=== PATIENT | female | born 1955 | race Caucasian/White ===

== ENCOUNTER 2020-10-12 10:53 | Outpatient (REF) | payer MEDICARE, OTHER, SELFPAY ==
[2020-10-12 14:16] LABS: Anion Gap 10 (12-20); Blood Urea Nitrogen 15 mg/dL (9-16); Calcium 8.9 mg/dL (8.4-10.2); Carbon Dioxide 27 mmol/L (22-29); Chloride 106 mmol/L (96-108); Estimated Glomerular Filt Rate > 60; Glucose Random 129 mg/dL (60-115); Potassium 4.2 mmol/l (3.3-5.1); Sodium 139 mmol/L (135-145)
[2020-10-12 14:31] LABS: Estimated Average Glucose 128 mg/dL; Hemoglobin A1c % 6.1 %
== END 2020-10-12 10:54 | disposition home or self-care (01) ==
LOC: HO.10HDL 10:53
PROVIDERS: Visit Provider Internal Medicine
DX: R73.03 Prediabetes (principal)
CPT/HCPCS: 80048; 83036

== ENCOUNTER 2020-10-22 10:58 | Outpatient (REF) | payer MEDICARE, OTHER, SELFPAY | END 2020-10-22 10:59 | disposition home or self-care (01) | LOC: HO.LNP 10:58 | PROVIDERS: Visit Provider Internal Medicine | DX: R53.83 Other fatigue (principal); J02.9 Acute pharyngitis, unspecified; Z20.828 Contact with and (suspected) exposure to other viral communicable diseases | CPT/HCPCS: 87071; 87880; U0003 ==

== ENCOUNTER 2021-01-21 13:48 | Outpatient (REF) | payer MEDICARE, OTHER, SELFPAY ==
[2021-01-21 15:50] LABS: Estimated Average Glucose 131 mg/dL; Hemoglobin A1C 152.1316 umol/L; Hemoglobin A1c % 6.2 %
[2021-01-21 16:14] LABS: Anion Gap 13 (12-20); Blood Urea Nitrogen 16 mg/dL (9-16); C Reactive Protein 0.53 mg/dL (< or = 0.50); Calcium 9.6 mg/dL (8.4-10.2); Carbon Dioxide 26 mmol/L (22-29); Chloride 104 mmol/L (96-108); Estimated Glomerular Filt Rate > 60; Glucose Random 125 mg/dL (60-115); Sodium 139 mmol/L (135-145)
== END 2021-01-21 13:49 | disposition home or self-care (01) ==
LOC: HO.LAB 13:48
PROVIDERS: PCP Internal Medicine; Visit Provider Internal Medicine
DX: I10 Essential (primary) hypertension (principal); R73.03 Prediabetes; J02.9 Acute pharyngitis, unspecified
CPT/HCPCS: 36415; 80048; 83036; 86140; 87071; 87880

== ENCOUNTER 2021-04-08 07:51 | Outpatient (REF) | payer MEDICARE, OTHER, SELFPAY ==
--- NOTE | ~2021-04-08 | XR_ITS ---
EXAMINATION: XR KNEE, LEFT CLINICAL INFORMATION: Left knee pain. COMPARISON: None TECHNIQUE: Four views of the left knee. FINDINGS: The tricompartment joint space is maintained normal. No visible acute fracture or lytic process. Minimal superior patellar spurring and irregular articular surface of the patella is noted. No abnormal joint effusion noted. No abnormal soft tissue calcification seen. 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 No visible acute fracture or dislocation seen.
[2021-04-08 08:55] LABS: MANUAL DIFF FLAG NO
[2021-04-08 08:56] LABS: Basophils Absolute Auto 0.1 X10*3/uL (0.0-0.2); Eosinophils Absolute Auto 0.4 X10*3/uL (0.0-0.4); Eosinophils Percent Auto 4.4 % (0-4); Hematocrit 39.8 % (37-47); Hemoglobin 13.3 g/dl (12.0-16.0); Imm Gran Abs Auto 0.04 X10*3/uL (0.00-0.03); Imm Gran Pct Auto 0.5 % (0.0-0.4); Lymphocytes Absolute Auto 2.6 X10*3/uL (1.2-4.9); Lymphocytes Percent Auto 32.9 % (20-40); Mean Corpuscular HGB Conc 33.4 g/dl (31.0-35.0); Mean Corpuscular Hemoglobin 28.7 pg (27.0-33.0); Mean Platelet Volume 10.3 fL (9.4-12.3); Monocytes Absolute Auto 0.7 X10*3/uL (0.1-1.2); Monocytes Percent Auto 8.8 % (2-11); Neutrophils Absolute Auto 4.2 X10*3/uL (2.0-8.3); Neutrophils Percent Auto 52.4 % (45-73); Platelet Count 269 X10*3/uL (160-400); Red Blood Count 4.63 X10*6/uL (4.20-5.50); Red Cell Distribution Width 12.6 % (11.0-16.0); White Blood Count 7.9 X10*3/uL (4.8-10.8)
[2021-04-08 09:23] LABS: Alanine Aminotransferase 27 U/L (0-31); Albumin Level 4.1 g/dL (3.5-5.0); Alkaline Phosphatase 78 U/L (39-117); Anion Gap 13 (12-20); Aspartate Amino Transferase 18 U/L (5-31); Bilirubin Total 0.9 mg/dL (0.0-1.0); Blood Urea Nitrogen 20 mg/dL (9-16); C Reactive Protein 0.31 mg/dL (< or = 0.50); Calcium 9.5 mg/dL (8.4-10.2); Carbon Dioxide 27 mmol/L (22-29); Chloride 107 mmol/L (96-108); Cholesterol 183 mg/dL; Estimated Glomerular Filt Rate > 60; Glucose Fasting 114 mg/dL (60-99); HDL Cholesterol 36 mg/dL; LDL Cholesterol Calculated 112 mg/dl; Potassium 4.5 mmol/L (3.3-5.1); Sodium 142 mmol/L (135-145); Total Protein 7.1 g/dL (6.5-8.0); Triglycerides 178 mg/dL
== END 2021-04-08 07:52 | disposition home or self-care (01) ==
LOC: HO.LAB 07:51
PROVIDERS: PCP Internal Medicine; Visit Provider Internal Medicine
DX: M25.562 Pain in left knee (principal); I10 Essential (primary) hypertension; K21.9 Gastro-esophageal reflux disease without esophagitis; R73.03 Prediabetes; K57.90 Diverticulosis of intestine, part unspecified, without perforation or abscess without bleeding
CPT/HCPCS: 36415; 73564; 80053; 80061; 85025; 86140

== ENCOUNTER 2021-07-27 11:52 | Outpatient (REF) | payer MEDICARE, OTHER, SELFPAY ==
[2021-07-27 13:53] LABS: Estimated Average Glucose 128 mg/dL; Hemoglobin A1c % 6.1 %
[2021-07-27 14:38] LABS: Alanine Aminotransferase 15 U/L (0-31); Albumin Level 4.3 g/dL (3.5-5.0); Alkaline Phosphatase 75 U/L (39-117); Anion Gap 11 (12-20); Aspartate Amino Transferase 14 U/L (5-31); Bilirubin Total 0.5 mg/dL (0.0-1.0); Blood Urea Nitrogen 20 mg/dL (9-16); Calcium 9.8 mg/dL (8.4-10.2); Carbon Dioxide 28 mmol/L (22-29); Chloride 104 mmol/L (96-108); Estimated Glomerular Filt Rate > 60; Glucose Random 57 mg/dL (60-115); Potassium 4.3 mmol/L (3.3-5.1); Sodium 139 mmol/L (135-145); Total Protein 7.3 g/dL (6.5-8.0)
== END 2021-07-27 11:53 | disposition home or self-care (01) ==
LOC: HO.10HDL 11:52
PROVIDERS: Visit Provider Internal Medicine
DX: B02.9 Zoster without complications (principal); I10 Essential (primary) hypertension; R73.03 Prediabetes
CPT/HCPCS: 36415; 80053; 83036

== ENCOUNTER 2022-02-27 16:42 | Outpatient (REF) | payer MEDICARE, OTHER, SELFPAY ==
[2022-02-27 16:57] LABS: MANUAL DIFF FLAG NO
[2022-02-27 17:17] LABS: Basophils Absolute Auto 0.1 X10*3/uL (0.0-0.2); Basophils Percent Auto 0.9 % (0-2); Eosinophils Absolute Auto 0.3 X10*3/uL (0.0-0.4); Hematocrit 41.1 % (37.0-47.0); Hemoglobin 13.7 g/dl (12.0-16.0); Imm Gran Abs Auto 0.05 X10*3/uL (0.00-0.03); Imm Gran Pct Auto 0.6 % (0.0-0.4); Lymphocytes Absolute Auto 3.1 X10*3/uL (1.2-4.9); Lymphocytes Percent Auto 34.9 % (20-40); Mean Corpuscular HGB Conc 33.3 g/dl (31.0-35.0); Mean Corpuscular Hemoglobin 28.4 pg (27.0-33.0); Mean Corpuscular Volume 85.3 fL (80.0-98.0); Mean Platelet Volume 9.9 fL (9.4-12.3); Monocytes Absolute Auto 0.8 X10*3/uL (0.1-1.2); Neutrophils Absolute Auto 4.5 x10*3/uL (2.0-8.3); Neutrophils Percent Auto 51.6 % (45-73); Platelet Count 296 X10*3/uL (160-400); Red Blood Count 4.82 X10*6/uL (4.20-5.50); Red Cell Distribution Width 12.3 % (11.0-16.0); White Blood Count 8.8 X10*3/uL (4.8-10.8)
[2022-02-27 17:45] LABS: Anion Gap 14 (12-20); Blood Urea Nitrogen 18 mg/dL (9-16); C Reactive Protein 0.26 mg/dL (< or = 0.50); Calcium 10.1 mg/dL (8.4-10.2); Carbon Dioxide 26 mmol/L (22-29); Chloride 106 mmol/L (96-108); Estimated Glomerular Filt Rate > 60; Glucose Random 91 mg/dL (60-115); Potassium 4.7 mmol/L (3.3-5.1); Sodium 141 mmol/L (135-145)
[2022-02-27 17:47] LABS: Estimated Average Glucose 128 mg/dL; Hemoglobin A1c % 6.1 %
[2022-02-27 18:02] LABS: Erythrocyte Sedimentation Rate 5 MM/HR (0-20)
== END 2022-02-27 16:43 | disposition home or self-care (01) ==
LOC: HO.LAB 16:42
PROVIDERS: PCP Internal Medicine; Visit Provider Internal Medicine
DX: I10 Essential (primary) hypertension (principal); R73.03 Prediabetes; R51.9 Headache, unspecified
CPT/HCPCS: 36415; 80048; 83036; 85025; 85652; 86140

== ENCOUNTER 2022-06-16 10:28 | Outpatient (REF) | payer MEDICARE, OTHER, SELFPAY ==
[2022-06-16 11:56] LABS: Alanine Aminotransferase 20 U/L (0-31); Albumin Level 4.3 g/dL (3.5-5.0); Alkaline Phosphatase 70 U/L (39-117); Anion Gap 13 (12-20); Aspartate Amino Transferase 14 U/L (5-31); Bilirubin Total 0.3 mg/dL (0.0-1.0); Blood Urea Nitrogen 22 mg/dL (9-16); Calcium 9.3 mg/dL (8.4-10.2); Carbon Dioxide 26 mmol/L (22-29); Chloride 106 mmol/L (96-108); Estimated Glomerular Filt Rate > 60; Glucose Random 149 mg/dL (60-115); Potassium 4.4 mmol/L (3.3-5.1); Sodium 141 mmol/L (135-145)
== END 2022-06-16 10:29 | disposition home or self-care (01) ==
LOC: HO.LAB 10:28
PROVIDERS: PCP Internal Medicine; Visit Provider Internal Medicine
DX: I10 Essential (primary) hypertension (principal); M54.9 Dorsalgia, unspecified; K58.0 Irritable bowel syndrome with diarrhea; K21.9 Gastro-esophageal reflux disease without esophagitis; R73.03 Prediabetes
CPT/HCPCS: 36415; 80053

== ENCOUNTER 2023-01-24 09:17 | Outpatient (REF) | payer MEDICARE, OTHER, SELFPAY ==
[2023-01-24 10:52] LABS: MANUAL DIFF FLAG NO
[2023-01-24 11:08] LABS: Appearance Urine Clear; Color Urine Yellow; Glucose Urine UA Negative (Negative); Leukocyte Esterase Urine Trace (Negative); Nitrite Urine Negative (Negative); PH 5.5 (5.0-9.0); Specific Gravity - Urine 1.015 (1.005-1.025); UMIC TRIGGER UACC YES; Urine Blood Negative (Negative); Urine Ketones Negative (Negative); Urine Protein Negative (Neg-Trace)
[2023-01-24 11:12] LABS: Bacteria Urine None Seen (None Seen); Hyaline Casts Urine 0-2 /LPF (0-2); RBC Urine 0-2 /HPF (0-2); Squamous Epithelial Cell Urine 0-2 /HPF (0-2); WBC Urine 0-5 /HPF (0-5)
[2023-01-24 11:15] LABS: Basophils Absolute Auto 0.1 X10*3/uL (0.0-0.2); Basophils Percent Auto 1.2 % (0-2); Eosinophils Absolute Auto 0.3 X10*3/uL (0.0-0.4); Eosinophils Percent Auto 3.6 % (0-4); Hematocrit 43.9 % (37.0-47.0); Hemoglobin 14.5 g/dl (12.0-16.0); Imm Gran Abs Auto 0.03 X10*3/uL (0.00-0.03); Imm Gran Pct Auto 0.4 % (0.0-0.4); Lymphocytes Absolute Auto 2.2 X10*3/uL (1.2-4.9); Lymphocytes Percent Auto 32.2 % (20-40); Mean Corpuscular Hemoglobin 27.9 pg (27.0-33.0); Mean Corpuscular Volume 84.6 fL (80.0-98.0); Mean Platelet Volume 10.3 fL (9.4-12.3); Monocytes Absolute Auto 0.7 X10*3/uL (0.1-1.2); Monocytes Percent Auto 9.5 % (2-11); Neutrophils Absolute Auto 3.7 x10*3/uL (2.0-8.3); Neutrophils Percent Auto 53.1 % (45-73); Platelet Count 283 X10*3/uL (160-400); Red Blood Count 5.19 X10*6/uL (4.20-5.50); Red Cell Distribution Width 12.4 % (11.0-16.0); White Blood Count 6.9 X10*3/uL (4.8-10.8)
[2023-01-24 11:34] LABS: Alanine Aminotransferase 22 U/L (0-31); Albumin Level 4.1 g/dL (3.5-5.0); Alkaline Phosphatase 73 U/L (39-117); Anion Gap 18 (12-20); Aspartate Amino Transferase 17 U/L (5-31); Bilirubin Total 0.7 mg/dL (0.0-1.0); Blood Urea Nitrogen 17 mg/dL (9-16); Calcium 9.5 mg/dL (8.4-10.2); Carbon Dioxide 23 mmol/L (22-29); Chloride 105 mmol/L (96-108); Cholesterol 202 mg/dL; Estimated Glomerular Filt Rate > 60; Glucose Fasting 120 mg/dL (60-99); HDL Cholesterol 33 mg/dL; LDL Cholesterol Calculated 132 mg/dl; Potassium 4.6 mmol/L (3.3-5.1); Sodium 141 mmol/L (135-145); Total Protein 6.8 g/dL (6.5-8.0); Triglycerides 189 mg/dL
== END 2023-01-24 09:18 | disposition home or self-care (01) ==
LOC: HO.10HDL 09:17
PROVIDERS: Visit Provider Internal Medicine
DX: Z00.00 Encounter for general adult medical examination without abnormal findings (principal); R30.0 Dysuria
CPT/HCPCS: 36415; 80053; 80061; 81001; 81003; 85025; 87086

== ENCOUNTER 2023-06-07 17:07 | Outpatient (REF) | payer MEDICARE, OTHER, SELFPAY ==
[2023-06-07 18:04] LABS: Anion Gap 10 (12-20); Blood Urea Nitrogen 21 mg/dL (9-16); Calcium 10.1 mg/dL (8.4-10.2); Carbon Dioxide 28 mmol/L (22-29); Chloride 107 mmol/L (96-108); Estimated Glomerular Filt Rate > 60; Glucose Random 131 mg/dL (60-115); Potassium 4.1 mmol/L (3.3-5.1); Sodium 141 mmol/L (135-145)
[2023-06-08 08:43] LABS: HIV AB/AG Nonreactive (Nonreactive); HIV Num 1 0.06 S/CO (0.00-0.99)
== END 2023-06-07 17:08 | disposition home or self-care (01) ==
LOC: HO.LAB 17:07
PROVIDERS: PCP Internal Medicine; Visit Provider Internal Medicine
DX: Z11.4 Encounter for screening for human immunodeficiency virus [HIV] (principal); I10 Essential (primary) hypertension; R30.0 Dysuria; R73.01 Impaired fasting glucose; G62.9 Polyneuropathy, unspecified
CPT/HCPCS: 36415; 80048; 87389

== ENCOUNTER 2023-06-14 10:53 | Outpatient (REF) | payer MEDICARE, OTHER, SELFPAY ==
[2023-06-14 13:59] LABS: Glucose Random 162 mg/dL (60-115)
[2023-06-14 14:02] LABS: Estimated Average Glucose 128 mg/dL; Hemoglobin A1c % 6.1 %
== END 2023-06-14 10:54 | disposition home or self-care (01) ==
LOC: HO.10HDL 10:53
PROVIDERS: Visit Provider Internal Medicine
DX: R73.03 Prediabetes (principal)
CPT/HCPCS: 36415; 82947; 83036

== ENCOUNTER 2024-02-13 08:27 | Outpatient (REF) | payer MEDICARE, OTHER, SELFPAY ==
--- NOTE | ~2024-02-13 | XR_ITS ---
EXAMINATION: XR SHOULDER, RIGHT CLINICAL INFORMATION: Right shoulder pain COMPARISON: None available. TECHNIQUE: AP external rotation, Grashey, scapular Y, and axillary views of the right shoulder. FINDINGS: The bones are intact. No fracture. Glenohumeral and acromioclavicular alignment is anatomic with normal glenohumeral joint space. There is mild degenerative change of acromioclavicular joint. Slight cortical irregularity of the humeral head is likely related to rotator cuff disease. No abnormal soft tissue calcifications. XR/XR shoulder RT min 2V IMPRESSION: 1. No acute bony abnormality. 2. Mild degenerative change of the acromioclavicular joint.
[2024-02-13 08:49] LABS: MANUAL DIFF FLAG NO
[2024-02-13 09:02] LABS: Basophils Absolute Auto 0.1 X10*3/uL (0.0-0.2); Basophils Percent Auto 1.1 % (0-2); Eosinophils Absolute Auto 0.3 X10*3/uL (0.0-0.4); Eosinophils Percent Auto 3.9 % (0-4); Hematocrit 41.6 % (37.0-47.0); Hemoglobin 13.8 g/dl (12.0-16.0); Imm Gran Abs Auto 0.02 X10*3/uL (0.00-0.03); Imm Gran Pct Auto 0.3 % (0.0-0.4); Lymphocytes Absolute Auto 2.2 X10*3/uL (1.2-4.9); Lymphocytes Percent Auto 35.1 % (20-40); Mean Corpuscular HGB Conc 33.2 g/dl (31.0-35.0); Mean Corpuscular Hemoglobin 27.4 pg (27.0-33.0); Mean Corpuscular Volume 82.5 fL (80.0-98.0); Mean Platelet Volume 9.7 fL (9.4-12.3); Monocytes Absolute Auto 0.5 X10*3/uL (0.1-1.2); Monocytes Percent Auto 8.3 % (2-11); Neutrophils Absolute Auto 3.3 x10*3/uL (2.0-8.3); Neutrophils Percent Auto 51.3 % (45-73); Platelet Count 268 X10*3/uL (160-400); Red Blood Count 5.04 X10*6/uL (4.20-5.50); Red Cell Distribution Width 12.5 % (11.0-16.0); White Blood Count 6.4 X10*3/uL (4.8-10.8)
[2024-02-13 09:19] LABS: Estimated Average Glucose 123 mg/dL; Hemoglobin A1c % 5.9 % (<6.0)
[2024-02-13 09:36] LABS: Alanine Aminotransferase 18 U/L (0-31); Albumin Level 4.1 g/dL (3.5-5.0); Alkaline Phosphatase 76 U/L (39-117); Anion Gap 11 (12-20); Aspartate Amino Transferase 13 U/L (5-31); Bilirubin Total 0.6 mg/dL (0.0-1.0); Blood Urea Nitrogen 23 mg/dL (9-16); Calcium 9.5 mg/dL (8.4-10.2); Carbon Dioxide 28 mmol/L (22-29); Chloride 105 mmol/L (96-108); Cholesterol 198 mg/dL (<200); Estimated Glomerular Filt Rate > 60; Glucose Fasting 126 mg/dL (60-99); HDL Cholesterol 38 mg/dL (>40); LDL Cholesterol Calculated 130 mg/dL (<100); Potassium 4.3 mmol/L (3.3-5.1); Sodium 140 mmol/L (135-145); Total Protein 7.3 g/dL (6.5-8.0); Triglycerides 153 mg/dL (<150)
[2024-02-13 10:22] LABS: Appearance Urine Clear; Color Urine Yellow; Glucose Urine UA Negative (Negative); Leukocyte Esterase Urine Negative (Negative); Nitrite Urine Negative (Negative); Specific Gravity - Urine 1.025 (1.005-1.025); Urine Blood Negative (Negative); Urine Ketones Negative (Negative); Urine Protein Negative (Neg-Trace)
[2024-02-13 11:05] LABS: Creatinine Urine 122.07 mg/dL; Microalbum/Creatinine Ratio Ur 4.9 ug/mg cr (<30)
== END 2024-02-13 08:28 | disposition home or self-care (01) ==
LOC: HO.LAB 08:27
PROVIDERS: PCP Internal Medicine; Visit Provider Internal Medicine
DX: M25.511 Pain in right shoulder (principal); R73.03 Prediabetes; I10 Essential (primary) hypertension; E78.00 Pure hypercholesterolemia, unspecified
CPT/HCPCS: 36415; 73030; 80053; 80061; 81003; 82043; 82570; 83036; 85025; 87086

== ENCOUNTER 2024-12-04 14:18 | Outpatient (REF) | payer MEDICARE, OTHER, SELFPAY ==
[2024-12-04 14:46] LABS: MANUAL DIFF FLAG NO
[2024-12-04 15:09] LABS: Basophils Absolute Auto 0.1 X10*3/uL (0.0-0.2); Basophils Percent Auto 0.9 % (0-2); Eosinophils Absolute Auto 0.2 X10*3/uL (0.0-0.4); Eosinophils Percent Auto 2.7 % (0-4); Hemoglobin 14.3 g/dl (12.0-16.0); Imm Gran Abs Auto 0.05 X10*3/uL (0.00-0.03); Imm Gran Pct Auto 0.6 % (0.0-0.4); Lymphocytes Absolute Auto 2.8 X10*3/uL (1.2-4.9); Lymphocytes Percent Auto 31.5 % (20-40); Mean Corpuscular Hemoglobin 28.4 pg (27.0-33.0); Mean Corpuscular Volume 83.3 fL (80.0-98.0); Mean Platelet Volume 9.8 fL (9.4-12.3); Monocytes Absolute Auto 0.8 X10*3/uL (0.1-1.2); Monocytes Percent Auto 9.5 % (2-11); Neutrophils Absolute Auto 4.8 x10*3/uL (2.0-8.3); Neutrophils Percent Auto 54.8 % (45-73); Platelet Count 268 X10*3/uL (160-400); Red Blood Count 5.04 X10*6/uL (4.20-5.50); Red Cell Distribution Width 12.6 % (11.0-16.0); White Blood Count 8.8 X10*3/uL (4.8-10.8)
[2024-12-04 16:00] LABS: Appearance Urine Clear; Color Urine Yellow; Glucose Urine UA Negative (Negative); Leukocyte Esterase Urine Trace (Negative); Nitrite Urine Negative (Negative); PH 5.5 (5.0-9.0); UMIC TRIGGER UACC YES; Urine Blood Negative (Negative); Urine Ketones Negative (Negative); Urine Protein Negative (Neg-Trace)
[2024-12-04 16:06] LABS: Alanine Aminotransferase 25 U/L (0-31); Albumin Level 4.3 g/dL (3.5-5.0); Alkaline Phosphatase 80 U/L (39-117); Anion Gap 8 (12-20); Aspartate Amino Transferase 20 U/L (5-31); Bilirubin Total 0.4 mg/dL (0.0-1.0); Blood Urea Nitrogen 20 mg/dL (9-16); C Reactive Protein 0.22 mg/dL (< or = 0.50); Calcium 9.8 mg/dL (8.4-10.2); Carbon Dioxide 29 mmol/L (22-29); Chloride 108 mmol/L (96-108); Estimated Glomerular Filt Rate > 60; Glucose Random 101 mg/dL (60-115); Potassium 4.1 mmol/L (3.3-5.1); Sodium 141 mmol/L (135-145); Total Protein 7.8 g/dL (6.5-8.0)
[2024-12-04 18:05] LABS: Bacteria Urine None Seen (None Seen); Hyaline Casts Urine 0-2 /LPF (0-2); RBC Urine 0-2 /HPF (0-2); Squamous Epithelial Cell Urine 0-2 /HPF (0-2); WBC Urine 0-5 /HPF (0-5)
--- OUTSIDE RECORDS SUMMARY | 2024-12-04 18:59 | XMS_ITS | Continuity of Care Document ---
Author Organization [facility] Address [address] [place] [address] [address] [place] [address]- Care Team Providers Care [employer] Name Role Phone Best Suh MD Primary Care Physician Encounter [facility] [id number] Date(s): 10/24/24 - 11/23/[address] [place], [place] [address] Encounter Type: Triage Allergies, Adverse Reactions, Alerts Substance Criticality Severity Reaction Reaction Severity Status Cipro rash Active Medications Advil 200 mg oral tablet 2 tablet = 400 mg, By Mouth, Every 4 hours, PRN for fever, # 120 tablet, 0 Refills, Maintenance, 02/26/23 2:05:00 PM EDT, Tablet, Partial fill upon patient request if the prescription is for a schedule II opioid drug. Start Date: 02/26/23 Status: Ordered Quantity: 120.0 Unit: tablet Repeat number: 1 Rachelle By Mouth, 0 Refills, Maintenance, 02/26/23 2:04:00 PM EDT, Partial fill upon patient request if the prescription is for a schedule II opioid drug. Start Date: 02/26/23 Status: Ordered Repeat number: 1 bupropion 150 mg oral tablet, extended release 1 tablet = 150 mg, By Mouth, Daily, # 180 tablet, 0 Refills, Maintenance, 07/06/13 5:34:09 PM EDT, ER Tablet Start Date: 07/06/13 Status: Ordered Quantity: 180.0 Unit: tablet Repeat number: 1 clonazepam 0.5 mg oral tablet TAKE 1 TABLET BY MOUTH AT BEDTIME NEEDED Start Date: 07/06/13 Status: Ordered Repeat number: 1 gabapentin 100 mg oral capsule 100 mg, 1, capsule, By Mouth, Daily at bedtime, # 30 capsule, Refills 0, Tot. Refills 0, Maintenance, 10/01/23 2:48:00 PM EST, Route to Pharmacy Electronically, [facility]/pharmacy #[id number], Partial fill upon patient request if the prescription is for a schedule II opioid drug., 161, cm, 02/26/23 14:00:00 EDT, Height, 79, kg, 10/01/23 14:43:00 EST, Dry Weight Start Date: 10/01/23 Status: Ordered Quantity: 30.0 Unit: capsule Repeat number: 1 gabapentin 100 mg oral capsule See Instructions, Take 2 caps every night before bed, # 60 capsule, Refills 3, Tot. Refills 3, Maintenance, 10/15/23 4:07:00 PM EST, Instructions Replace Required Details, Route to Pharmacy Electronically, [facility]/pharmacy #[id number], Partial fill upon patient request if the prescription is for a schedule II opioid drug., 161, cm, 02/26/23 14:00:00 EDT, Height, 78.1, kg, 10/15/23 15:16:00 EST, Dry Weight Start Date: 10/15/23 Status: Ordered Quantity: 60.0 Unit: capsule Repeat number: 4 losartan 50 mg oral tablet 1 tablet = 50 mg, By Mouth, Daily, # 30 tablet, 0 Refills, Maintenance, 07/06/13 5:34:26 PM EDT, Tablet Start Date: 07/06/13 Status: Ordered Quantity: 30.0 Unit: tablet Repeat number: 1 omeprazole 20 mg oral enteric coated capsule 1 capsule = 20 mg, By Mouth, 2 times a day, # 30 capsule, 0 Refills, Maintenance, 07/06/13 5:33:02 PM EDT, EC Capsule Start Date: 07/06/13 Stop Date: 08/05/13 Status: Ordered Quantity: 30.0 Unit: capsule Repeat number: 1 phenazopyridine 200 mg oral tablet 200 mg, 1, tablet, By Mouth, 3 times a day after meals, PRN, with food, # 30 tablet, Refills 3, Tot. Refills 3, Maintenance, as needed for urinary discomfort, 01/14/24 2:24:00 PM EST, Route to Pharmacy Electronically, [facility]/pharmacy #[id number], Partial fill upon patient request if the prescription is for aschedule II opioid drug., 161, cm, 02/26/23 14:00:00 EDT, Height, 78.47, kg, 11/26/23 13:55:00 EST,Dry Weight Start Date: 01/14/24 Status: Ordered Quantity: 30.0 Unit: tablet Repeat number: 4 Readi-Cat 2 oral suspension See Instructions, Take one bottle 6 hours before procedure. Take second bottle 90 minutes before procedure., # 2 each, 0 Refills, Maintenance, 12/06/22 3:58:00 PM EST, [facility]/pharmacy #[id number], Partial fillupon patient request if the prescription is for a schedule II opioid drug., Take one bottle 6 hoursbefore procedure. Take second bottle 90 minutes before procedure., 161, cm, 04/18/22 10:53:00 EDT, H eight Start Date: 12/06/22 Status: Ordered Quantity: 2.0 Unit: each Repeat number: 1 sodium bicarbonate 650 mg oral tablet 1 tablet = 650 mg, By Mouth, 4 times a day, 0 Refills, Maintenance, 10/15/23 3:19:00 PM EST, Partial fill upon patient request if the prescription is for a schedule II opioid drug. Start Date: 10/15/23 Status: Ordered Repeat number: 1 Vitafusion Fiber Well + Probiotics Gummies oral tablet, chewable 1 tablet, By Mouth, Daily, # 30 tablet, 0 Refills, Maintenance, 09/02/24 5:49:00 PM EDT, [facility]/pharmacy #[id number], Partial fill upon patient request if the prescription is for a schedule II opioid drug., 1tablet By Mouth Daily, 160, cm, 09/02/24 16:55:00 EDT, Height, 75, kg, 09/02/24 16:55:00 EDT, Dry Weight Start Date: 09/02/24 Status: Ordered Quantity: 30.0 Unit: tablet Repeat number: 1 Vitamin D3 1000 intl units oral capsule 1 capsule = 25 mcg, By Mouth, Daily, # 100 capsule, 0 Refills, Maintenance, 02/26/23 2:04:00 PM EDT,Capsule, Partial fill upon patient request if the prescription is for a schedule II opioid drug. Start Date: 02/26/23 Status: Ordered Quantity: 100.0 Unit: capsule Repeat number: 1 Problem List Condition Confirmation Course Effective Dates Status H ealth Status Informant Arthritis Confirmed Active Back pain Confirmed Active Diverticulitis Confirmed Active Heartburn Confirmed Active High blood pressure Confirmed Active Osteoporosis Confirmed Active Patient Care team information Care Team Personnel Name: Best Suh MD Position: S Outreach Member Role: PCP Address: [address] [place] [address] Angeli INIGUEZ [place] [address] Telecom: Care Team Related Persons Name: LILLIE SILVA Name: LOUISE SILVA Name: JOANIE RAMIREZ Name: JOANIE RAMIREZ Insurance Providers Guarantor name: DOUGLAS SILVA Health Plan Information #: 1 Payer: MEDICARE PART B OUTPT Member Number: NA Policy Number: NA Group Number: NA Health Plan Information #: 2 Payer: [facility] Member Number: NA Policy Number: NA Group Number: NA
== END 2024-12-04 14:19 | disposition home or self-care (01) ==
LOC: HO.LAB 14:18
PROVIDERS: PCP Internal Medicine; Visit Provider Internal Medicine
DX: R10.9 Unspecified abdominal pain (principal)
CPT/HCPCS: 36415; 80053; 81001; 81003; 85025; 86140; 87086

== ENCOUNTER 2024-12-08 12:27 | Outpatient (REF) | payer MEDICARE, OTHER, SELFPAY ==
--- NOTE | ~2024-12-08 | CT_ITS ---
EXAMINATION: CT ABDOMEN AND PELVIS WITHOUT CONTRAST CLINICAL INFORMATION: Right lower quadrant pain COMPARISON: CT abdomen and pelvis 01/04/2017 TECHNIQUE: Multidetector volumetric imaging was performed from the superior aspect of the liver through the pubic symphysis. Sagittal and coronal reformatted images were obtained on the technologist's workstation. This CT examination was performed using dose optimization techniques as appropriate, variously including the following: *Automated exposure control *Adjustment of mA and/or kV according to patient size (this includes techniques or standardized protocols for targeted exams where dose is matched to indication/reason for exam; i.e. extremities or head) *Use of iterative reconstruction technique. DLP: 4 70 mGy. FINDINGS: LUNG BASES: The visualized lung bases are unremarkable. LIVER, GALLBLADDER, AND BILIARY TREE: The liver is normal in size, shape, and highly attenuated. No focal hepatic lesion or biliary ductal dilatation is present. The gallbladder is surgically removed . PANCREAS: Unremarkable. SPLEEN: Unremarkable. ADRENAL GLANDS: Unremarkable. KIDNEYS AND URETERS: The kidneys are normal in size, shape, and attenuation. No hydronephrosis, hydroureter, or calculi seen. No perinephric stranding. BLADDER: Unremarkable. GASTROINTESTINAL TRACT: There is scattered stool, diverticuli and gas seen throughout the colon without distention. Significant stool is seen in the cecum and ascending colon likely cause of patient's pain. Oral contrast opacified small bowel loops are normal caliber. Appendix is normal caliber. ABDOMINAL WALL: No significant hernia is appreciated. LYMPH NODES: There are small non no suspicious several retroperitoneal and mesenteric lymph nodes, stable to previous study. The largest mesenteric lymph node measures 9 mm on axial image 46/3. Same lymph node measured 1.3 cm on the previous exam.. VASCULAR: Dominant aorta is of normal caliber. PELVIC VISCERA: Uterus is midline and slightly deviated to left. No adnexal mass or free fluid seen. OSSEOUS STRUCTURES: Mild degenerative disc changes seen throughout the entire lumbar spine with vacuum disc phenomena, ventral and posterior spondylosis. No aggressive lytic or sclerotic process seen CT/CT abdomen pelvis wo IV con IMPRESSION: Moderate constipation with large amount of stool in the right colon and cecum. The cecum is low-lying in the pelvis. The appendix is normal. The small bowel loops are normal. Cholecystectomy. Mild attenuation of liver question hepatic steatosis. No radiopaque urolith or hydroureteronephrosis. Fleischner guidelines were followed. Electronically signed by: Harley Barry MD 12/08/2024 03:26 PM TATIANA RP
[2024-12-08] MEDS: Barium Sulfate Oral (Mocha) 450 ML ORAL.SUSP 900 ML PO (14:22)
== END 2024-12-08 12:28 | disposition home or self-care (01) ==
LOC: HO.CT 12:27
PROVIDERS: PCP Internal Medicine; Visit Provider Internal Medicine
DX: R10.31 Right lower quadrant pain (principal)
CPT/HCPCS: 74176

== ENCOUNTER → 2024-12-08 14:17 | Outpatient (BNV) | payer MEDICARE, OTHER, SELFPAY | PROVIDERS: PCP Internal Medicine; Visit Provider Radiology Diagnostic Radiology | DX: K56.41 Fecal impaction (principal) | CPT/HCPCS: 74176 ==

== ENCOUNTER 2025-02-04 14:04 | Outpatient (AMB) | payer MEDICARE, OTHER, SELFPAY ==
--- NOTE | 2025-02-04 14:09 | A.OFFPC_ITS ---
Vital Signs 02/04/25 14:14 Height 5 ft 3 in Weight 168 lb BMI 29.8 BP 126/70 Respiration 16 Pulse 88 Pulse Source Pulse Oximeter Temp 97.6 F Temp Source Temporal Artery Scan Pulse Oximetry (%) 99 Oxygen Delivery Method Room Air Intake Visit Reasons: Routine Family Preservation Worker Required: No Accompanied by: Self / Same As Patient Allergies ciprofloxacin [CIPROFLOXACIN] Allergy (Intermediate, Unverified 02/04/25 14:12) RASH Tobacco use date assessed: 02/04/25 Fall risk assessment: No Falls in past year Last assessed Fall Risk: 02/04/25 Dental Screening Dental Screen Date: 02/04/25 Did you have a dental visit in the last 12 months?: Yes Did you have a dental problem in the last 6 months where you did not have access to dental care?: No PFSH Medical History (Updated 02/04/25 @ 15:15 by John Palmer MD) Neuropathy Family History (Updated 02/04/25 @ 14:19 by JESICA Elena) Mother Dementia Afib Arthritis Father Gastric cancer Social History (Updated 02/04/25 @ 14:19 by JESICA Elena) Housing: House Alcohol intake: current Alcohol intake frequency: does not drink Patient Tobacco Use Status: Never used Tobacco service: No Current occupational status: retired Cognitive needs: No Hearing needs: No Vision needs: Yes (rx glasses) Questionnaire PHQ-9 Over the last 2 weeks, how often have you been bothered by any of the following problems? 1. Little interest or pleasure in doing things: not at all 2. Feeling down, depressed, or hopeless: not at all 3. Trouble falling or staying asleep, or sleeping too much: not at all 4. Feeling tired or having little energy: not at all 5. Poor appetite or overeating: not at all 6. Feeling bad about yourself - or that you are a failure or have let yourself or your family down: not at all 7. Trouble concentrating on things, such as reading the newspaper or watching television: not at all 8. Moving or speaking so slowly that other people could have noticed. Or the opposite - being so fidgety or restless that you have been moving around a lot more than usual: not at all 9. Thoughts that you would be better off or of hurting yourself in some way: not at all Total score: 0 Source: Developed by Drs. Alvarado Pratt, Maria Esther Saucedo, Patricio Cherry and colleagues, with an educational silvia from [employer]. Thrive Questionnaire Date Thrive assessed: 02/04/25 I am a: Patient What is your living situation today?: I have a steady place to live Within the past 12 months, did the food you bought not last and you didn't have the money to get more?: Never true Within the past 12 months, did you worry whether your food would run out before you got money to buy more?: Never true Do you have trouble paying for medicines?: No Do you have trouble getting transportation to medical appointments?: No Do you have trouble paying your heating and electricity bill?: No Do you have trouble taking care of your child, family member or friend?: No Do you have trouble with day-to-day activities such as bathing, preparing meals, shopping, managing finances, etc.?: No Are you currently unemployed and looking for a job?: No Are you interested in more education?: No Please select the resources that you would like help with: None THRIVE Score: 0 AUDIT C Alcohol Use Questionnaire (AUDIT-C) 1. How often do you have a drink containing alcohol?: Never 3. How often do you have six or more drinks on one occasion?: Never Total Score: 0 JEFFERY-7 AMB Questionnaire JEFFERY-7 Date JEFFERY - 7 assessed: 02/04/25 Feeling nervous, anxious, or on edge: 0 = Not at all Not being able to stop or control worryin = Not at all Worrying too much about different things: 0 = Not at all Trouble relaxin = Not at all Being so restless that it is hard to sit still: 0 = Not at all Becoming easily annoyed or irritable: 0 = Not at all Feeling afraid as if something awful might happen: 0 = Not at all Total JEFFERY-7 score (0-4 normal; 5-9 mild; 10-14 moderate; 15-21 severe): 0 Source: Developed by Maria Esther Brito Kurt Kroenke and colleagues, with an educational silvia from [employer]. Physical exam (Primary Care) Vital Signs: Last Vital Signs Temp 97.6 F 02/04/25 14:14 Pulse 88 02/04/25 14:14 Resp 16 02/04/25 14:14 BP 126/70 02/04/25 14:14 Pulse Ox 99 02/04/25 14:14 Oxygen Delivery Method Room Air 02/04/25 14:14 BMI result Body Mass Index 29.8 Tobacco/Smoking Status: Tobacco use Status Tobacco use date assessed 02/04/25 02/04/25 14:20 Patient Tobacco Use Status Never used Tobacco 02/04/25 14:20 PHQ-9: PHQ-9 Score PHQ-9: Total score 0 02/04/25 14:20 Thrive Assessment: Date of Thrive Assessment Date Thrive assessed 02/04/25 02/04/25 14:20 Coding Level of Care Code New Pt Level 4 (26838) Complex EM visit Add On G2211 Diagnoses Neuropathy G62.9 Assessment & Plan Assessment & Plan (1) Neuropathy: Code(s): G62.9 - Polyneuropathy, unspecified Category: Medical Plan: Gabapentin called in. Omeprazole prescription called in Plan History of Present Illness The patient is a 70-year-old female presenting with recent concerns of abdominal discomfort and neuropathy symptoms in her feet. She recently had a blood test and CAT scan, which showed normal blood results but indicated stool in the colon and cecum. The patient reports persistent right upper quadrant pain, which has failed to resolve fully, despite trying MiraLAX to regularize bowel activity. She also reports a historical burden of polyp formation within the colon, having undergone multiple colonoscopies, and has known diverticulosis, and diverticulitis. The patient experiences neuropathic symptoms, including burning and numbness in her feet, along with stiffness and pain in her toes and fingers, symptoms that disturb her sleep. She manages chronic GERD with omeprazole but still experiences significant symptoms exacerbated by certain foods. Her urinary symptoms have been somewhat managed with estradiol, although burning persists. The patient expresses concern about her prediabetes, questioning its connection to her neuropathy, and manages constipation with MiraLAX. Social History - The patient is a retired teacher, having previously worked in elementary education. - She currently takes care of her 90-year-old mother. - Nutrition: The patient reports difficulties reducing sugar intake due to a sweet tooth. - Known to avoid raw vegetables, nuts, and popcorn due to gastrointestinal discomfort. - She manages constipation with MiraLAX every other day, noted to result in irregular bowel habits. - She adheres to dietary modifications to avoid worsening GERD, including reducing caffeine and acidic foods. Review of Systems - Gastrointestinal: Reports abdominal discomfort, belching, bowel irregularities, and acid reflux. - Neurological: Reports burning, numbness, and shooting pain in feet, with similar symptoms in fingers. - Genitourinary: Reports burning with urination. - Musculoskeletal: Reports morning stiffness and arthralgia. Physical Exam General: Appearance normal, both eyes and all related structures Nutritional Appearance: Well nourished Orientation/consciousness: Patient oriented x3 Limitations: No limitations Head: Normal to inspection Neck: Normal visual inspection Chest: Normal palpation of entire chest wall Respiratory: Normal respiratory effort Neurology: Burning numbness and pain in toes and bottom of feet, possible neuropathy Results - Labs: Blood glucose level of 101 mg/dL, noted as normal. - Tests and Diagnostics: CAT scan showed stool presence in the colon and cecum. Plan The plan includes treatment with Neurontin for neuropathy symptoms, and the use of a higher dose of omeprazole to address GERD-related symptoms potentially exacerbated by dietary factors. An A1c test will clarify her prediabetic state, aimed at understanding its correlation to her neuropathy. Blood work for arthritis assessment will be conducted to explore underlying systemic contributions to her joint pain and morning stiffness. She will manage bowel health with MiraLAX, adjusting use based on regularity of bowel movements. As dietary factors impact multiple symptoms, including acid reflux, she is advised to remain careful with food choices that may exacerbate her symptoms. Regular follow-up with her tubing machine operator and care for her pre-existing conditions are encouraged to optimize her chronic symptom management and ensure comprehensive monitoring. Patient was informed and verbally consented to the use of an ambient scribe for clinic note documentation during this visit. Discussion Notes During the visit, I discussed with the patient the management of neuropathy symptoms using Neurontin. I advised her to take a low dose at bedtime due to potential drowsiness. The risks and benefits of this medication were discussed, with an understanding that natural or [id number] alternatives for neuropathic pain are limited. For her GERD, increasing omeprazole to 40 mg was recommended to better manage symptoms, with consideration for dietary triggers as discussed. Blood sugar management was reviewed, including an A1c test to determine her prediabetic status and its relevance to her symptoms, emphasizing no evidence of diabetes. Further testing for arthritis was planned, to ascertain if inflammatory causes are contributing to her joint symptoms. The option of adjusting MiraLAX was also explored based on current bowel habits. Future follow-up with her tubing machine operator for a comprehensive approach to her digestive health, and potential advancement to surgical interventions for hemorrhoids if practical, was advised. I outlined home management for her chronic conditions while highlighting the importance of dietary monitoring, given her sensitivities. Patient Instructions - Take Neurontin as prescribed for neuropathy symptoms before bedtime. - Increase omeprazole to 40 mg daily to manage GERD; take in the morning an hour before eating. - Follow up on lab work, including the A1c and arthritis-related assessments. - Adjust MiraLAX use depending on bowel movement regularity. - Maintain dietary adjustments to lessen GERD and urinary symptoms; continue to avoid foods that exacerbate symptoms. - Monitor any changes in symptoms; contact the office with any worsening or new issues. - Schedule a follow-up appointment for further evaluation in six weeks or as needed. - Prioritize a consultation with a gastroenterology specialist if symptoms persist or progress. Orders: Orders Hemoglobin A1c Today G62.9 - Polyneuropathy, unspecified Erythrocyte Sedimentation Rate Today G62.9 - Polyneuropathy, unspecified Medications: New gabapentin (Neurontin) 100 mg PO BEDTIME 30 caps 1RF losartan 50 mg PO BID 180 tabs 1RF omeprazole 40 mg (2 x 20 mg) PO DAILY 90 caps 1RF
[2025-02-04 14:14] VITALS: BP 126/70; PULSE 88; RESP 16; TEMP 36.4; O2SAT 99; BMI 29.8
--- OUTSIDE RECORDS SUMMARY | 2025-02-04 16:26 | XMS_ITS | Continuity of Care Document ---
Author Organization [facility] Address [address] [place] [address] ve [address] [place] [address]- Care Team Providers Care Shoe Shanker Name Role Phone Best Suh MD Primary Care Physician Encounter [facility] [id number] Date(s): 12/09/24 - 01/08/[address] [place], [place] [address] Attending Physician: Nori Dow Admitting Physician: trNori Referring Physician: Admtr ArVerna Encounter Type: Triage Allergies, Adverse Reactions, Alerts [...] 2:48:00 PM EST, Route to Pharmacy Electronically, [facility]/pharmacy #[id number], Partial fill upon patient [...] Replace Required Details, Route to Pharmacy Electronically, [facility]/pharmacy #[id number], Partial fill upon patient [...] 2:24:00 PM EST, Route to Pharmacy Electronically, [facility]/pharmacy #[id number], Partial fill upon patient request if the prescription is for aschedule II opioid drug., 161, cm, 02/26/23 14:00:00 EDT, Height, 78.47, kg, 11/26/23 13:55:00 EST,Dry Weight Start Date: 01/14/24 Status: Ordered Quantity: 30.0 Unit: tablet Repeat number: 4 sodium bicarbonate 650 mg oral tablet 1 [...] 0 Refills, Maintenance, 09/02/24 5:49:00 PM EDT, [facility]/pharmacy #[id number], Partial fill upon patient [...] Confirmed Active High blood pressure Confirmed Active Obese class I Confirmed Active Osteoporosis Confirmed Active Patient Care team information Care Team Personnel Name: Best Suh MD Position: S Outreach Member Role: PCP Address: [address] [place] [address] [place], [place] [address]- Telecom: Care Team Related Persons Name: LILLIE SILVA Name: LOUISE SILVA Name: JOANIE RAMIREZ Name: JOANIE RAMIREZ Insurance Providers Guarantor name: DOUGLAS SILVA Health Plan Information #: 1 Payer: MEDICARE PART B OUTPT Member Number: NA Policy Number: NA Group Number: NA Health Plan Information #: 2 Payer: [facility] Member Number: NA Policy Number: NA Group Number: NA
--- OUTSIDE RECORDS SUMMARY | 2025-02-04 16:26 | XMS_ITS | Encounter Summary ---
Author Organization [facility] Address [address] [place] [address] Care Team Providers Care Cinnamon Grinder Name Role Phone Best Suh MD Primary Care Provider Encounter Details Date Type Department Care Team (Late st Contact Info) Description 01/15/2025 Lab Requisition [facility] - Main Lab [address] [place] [address] [facility] Lee Ann Fine & Sukumar Ob-Air Conditioning Service Technician Acute vaginitis Social History Tobacco Use Types Packs/Day Years Used Date Smoking Tobacco: Never Assessed Comments Unknown Sex and Gender Information Value Date Recorded Sex Assigned at Not on file Legal Sex Female 10:07 PM EST Gender Identity Not on file Sexual Orientation Not on file documented as of this encounter Plan of Treatment Not on file documented as of this encounter Procedures Procedure Name Priority Date/Time Associated Diagnosis Comments VAGINITIS PATHOGENS BY PCR Routine 01/15/2025 12:00 AM EST Acute vaginitis documented in this encounter Results * Vaginitis pathogens molecular study (01/15/2025 12:00 AM EST) Trichomonas vaginalis Negative Negative 2025 12:12 PM [facility] Gardnerella vaginalis Negative Negative 2025 12:12 PM [facility] Angela Species Negative Negative 12:12 PM [facility] Swab Vaginal structure / Unknown 01/15/2025 01/15/2025 7:31 PM EST us Lee Ann Guzman & Sukumar O b-Air Conditioning Service Technician [facility] Fine LAB MICROBIOLOGY - GENERAL ORDERABLES Final Result [facility] [address] [place] [address], documented in this encounter Visit Diagnoses Diagnosis Acute vaginitis Unspecified vaginitis and vulvovaginitis documented in this encounter Care Teams Cinnamon Grinder Relationship Specialty Start Date End Date Best Suh MD [address] [place] [address] Dr Ismael [place] PCP - General 10/31/12 documented as of this encounter
--- OUTSIDE RECORDS SUMMARY | 2025-02-04 16:26 | XMS_ITS | Patient Health Record ---
Author Organization [facility] Address [address] [facility] [address] Care Team Providers Care Union Laborer Name Role Phone Best Suh MD Primary Care Provider Unavaila Luiz Diaz Unavailable [phone] Allergies Allergen (clinical drug ingredient) Drug/Non Drug Allergy documented on EMR Reaction Allergy Type Onset Date Status amoxicillin Amoxicillin diarrhea Drug Allergy Act ericka ciprofloxacin Cipro hives Drug Allergy Act ericka erythromycin Erythromycin diarrhea Drug Allergy A ctive Reason For Referral No Information Medications Medication SIG (Take, Route, Frequency, Duration) Notes Start Date End Date Status Omeprazole 20 MG Oral for 90 A ctive Losartan Potassium 50 MG Oral for 90 Active Ciclopirox 0.77 % 1 application Regulatory Specialist ally to affected toenails Twice a day for 30 days 02/21/2023 Active Vitamin D Active Immunizations Vaccine Route Administration Date Status Comme nts COVID-19 Pfizer BioNTech Vaccine Unknown 10/19/2021 Administered unsure dates Social History Tobacco Use: Social History Observation Description Date Details (start date - stop date) Never Smoker NA - NA Tobacco Use/Smoking Question Answer Notes Are you a: nonsmoker Additional Findings: Tobacco Non-User Current no n-smoker Alcohol Screen Question Answer Notes Did you have a drink containing alcohol in the p ast year? No Points 0 Interpretation Negative Tobacco use other than smoking: Question Answer Notes Are you an other tobacco user? No Plan Of Treatment Pending Test Test Name Order Date 70979 I&D ABSCESS- SIMPLE,SINGLE 023 Insurance Providers Payer Name Payer Address Payer Phone Subscriber Number Group Number Insured Name Patient Relationship to Insured Coverage Start Date Coverage End Date Medicare National [employer] [address] [place] [address] [id number] Olman Hurst i Self - patient is the insured [facility] [address] [place] [address] [phone] [id number] Olman Hurst i Self - patient is the insured Medical (General) History Medical History History ICD Code Arthritis Back,Hip,and Knee pain Cataracts Diverticulosis Neuropathy Headaches/Migraines Osteoporosis Poor circulation chronic sinusitis Surgical History Surgery Date(Month/Year) cholecystectomy 1990
--- OUTSIDE RECORDS SUMMARY | 2025-02-04 16:26 | XMS_ITS | Clinical Summary ---
Author Organization [facility] [address] [facility] Address [address] [place] [address] Phone Care Team Providers Care Spinner Hand Name Role Phone Best Suh MD Primary Care Provider [phone] Allergies Active Allergy Reactions Criticality Noted Date Comments Ciprofloxacin 10/22/2024 Medications omeprazole (PriLOSEC) [address] capsule TAKE 1 CAPSULE BY MOUTH DAILY 1 HOUR BEFORE A MEAL 08/10/2024 Active losartan (COZAAR) 50 mg tablet Take 1 tablet (50 mg total) by mouth 2 (two) times a day. Active cholecalciferol (VITAMIN D-3) 125 mcg (5,000 unit) capsule Take 125 mcg by mouth. Active polyethylene glycol (PEG) 17 gram/dose oral powder 17 g 1 (one) time each day. Active Active Problems Problem Noted Date Diagnosed Date Irritable bowel syndrome wit h both constipation and diarrhea 10/20/2024 Fatty liver 10/20/2024 Encounters Date Type Department Care Team Description 01/15/2025 Lab Requisition [facility] - Main Lab [address] [facility] [place] [id number] sp Lee Ann Fine & Sukumar Ob-Post Anesthesia Care Unit Nurse Acute vaginitis from Last 3 Months Social History Tobacco Use Types Packs/Day Years Used Date Smoking Tobacco: Never Assessed Comments Unknown Sex and Gender Information Value Date Recorded Sex Assigned at Not on file Legal Sex Female 10:07 PM EST Gender Identity Not on file Sexual Orientation Not on file Last Filed Vital Signs Vital Sign Reading Time Taken Comments Blood Pressure - - Pulse - - Temperature - - Respiratory Rate - - Oxygen Saturation - - Inhaled Oxygen Concentration - - Weight 76.2 kg (168 lb) 10/22/2024 2:04 PM EST Height 160 cm (5' 3 ) 10/22/2024 2:04 PM EST Body Mass Index 29.76 10/22/2024 2:04 PM EST Plan of Treatment Health Maintenance Due Date Last Done Comments Breast Cancer Screening 1955 DTaP,Tdap,and Td Vaccines (1 - Tdap) 1973 Pneumococcal Vaccine: 50+ Years (1 of 2 - PCV) 1973 Zoster Vaccines (1 of 2) 2004 Cholesterol Screening (Lipid Panel) 10/21/2022 Colorectal Cancer Screening: Colonoscopy 10/21/2022 Depression Screening 10/21/2022 Falls Risk Assessment 10/21/2022 Hepatitis C Screening 10/21/2022 Medicare Annual Wellness Visit 10/21/2022 Osteoporosis Screening (Bone Density Screening) 10/21/2022 Social Influencers of Health Screening 10/21/2022 COVID-19 Vaccine (4 - 2023-2 5 season) 2024 10/20/2021, 03/28/2021, 03/07/2021 Influenza Vaccine (#1) 2024 Hypertension/CHF/CAD Annual BMP Blood Test 10/22/2024 RSV Immunization Patients 60 + Years Old (1 - 1-dose 75+ series) 2029 HIB Vaccines Aged Out No longer eligi ble based on patient's age to complete this topic HPV Vaccines Aged Out No longer eligi ble based on patient's age to complete this topic Hepatitis A Vaccines Aged Out No long er eligible based on patient's age to complete this topic Hepatitis B Vaccines Aged Out No long er eligible based on patient's age to complete this topic IPV Vaccines Aged Out No longer eligi ble based on patient's age to complete this topic MMR Vaccines Aged Out No longer eligi ble based on patient's age to complete this topic Meningococcal ACWY Vaccine Aged Out N o longer eligible based on patient's age to complete this topic Meningococcal B Vacine Aged Out No lo nger eligible based on patient's age to complete this topic RSV Immunization Patients Under 20 months Aged Out No longer eligible b ased on patient's age to complete this topic Varicella Vaccines Aged Out No longer eligible based on patient's age to complete this topic Procedures Procedure Name Priority Date/Time Associated Diagnosis Comments VAGINITIS PATHOGENS BY PCR Routine 01/15/2025 12:00 AM EST Acute vaginitis from Last 3 Months Results * Vaginitis pathogens molecular study (01/15/2025 12:00 AM EST) Trichomonas vaginalis Negative Negative 2025 12:12 PM EST [facility] Gardnerella vaginalis Negative Negative 2025 12:12 PM EST [facility] Angela Species Negative Negative 12:12 PM EST [facility] Swab Vaginal structure / Unknown 01/15/2025 01/15/2025 7:31 PM EST Nancenila Guzman & Sukumar O b-Post Anesthesia Care Unit Nurse [facility] Fine LAB MICROBIOLOGY - GENERAL ORDERABLES Final Result [facility] [address] [place] [address], from Last 3 Months Insurance [facility] [place] [address] MEDICARE [facility] [address] [place] [address] Care Teams Spinner Hand Relationship Specialty Start Date End Date Best Suh MD [address] [place] [address] [address] [place] PCP - General 10/31/12
== END 2025-02-04 15:11 | disposition home or self-care (01) ==
LOC: HO.HMCHD 14:04
PROVIDERS: PCP Internal Medicine; Visit Provider Internal Medicine
DX: G62.9 Polyneuropathy, unspecified (principal)

== ENCOUNTER → 2025-02-04 14:04 | Outpatient (BNVA) | payer MEDICARE, OTHER, SELFPAY | PROVIDERS: PCP Internal Medicine; Visit Provider Internal Medicine | DX: G62.9 Polyneuropathy, unspecified (principal) | CPT/HCPCS: 99202 ==

== ENCOUNTER 2025-02-05 09:47 | Outpatient (REF) | payer MEDICARE, OTHER, SELFPAY ==
[2025-02-05 10:38] LABS: Estimated Average Glucose 143 mg/dL; Hemoglobin A1c % 6.6 % (<6.0)
[2025-02-05 11:16] LABS: Erythrocyte Sedimentation Rate 5 MM/HR (0-20)
== END 2025-02-05 09:48 | disposition home or self-care (01) ==
LOC: HO.10HDL 09:47
PROVIDERS: Visit Provider Internal Medicine
DX: G62.9 Polyneuropathy, unspecified (principal)
CPT/HCPCS: 36415; 83036; 85652

== ENCOUNTER 2025-03-18 14:35 | Outpatient (REF) | payer MEDICARE, OTHER, SELFPAY ==
--- OUTSIDE RECORDS SUMMARY | 2025-03-18 16:27 | XMS_ITS | Clinical Summary ---
Author Organization [facility] 299 [facility] Address [address] [place] [address] Phone Care Team Providers Care Email Marketing Manager Name Role Phone Best Suh MD Primary Care Provider [phone] Allergies Active Allergy Reactions Criticality Noted Date [...] Department Care Team Description 03/18/2025 Lab Requisition [facility] - Main Lab [address] [place] [address] Jodi Santillan NP Dysuria 02/13/2025 Lab Requisition [facility] [address] [place] [address] Isidro Rios MD Dysuria 01/15/2025 Lab Requisition [facility] [address] [place] [address] [facility] Lee Ann Fine & Sukumar Ob-Outpatient Coder Acute vaginitis from Last 3 Months Social [...] Normal Urogenital julien. 03/18/2025 11:49 AM EDT [facility] Other Urine specimen from urethra / Unknown 03/17/2025 03/18/2025 10:43 AM EDT Jodi Santillan RETAIL ACCOUNT SPECIALIST LAB MICROBIOLOGY - GENERA L ORDERABLES Final Result [facility] [address] [place] [address], * Vaginitis pathogens molecular study (01/15/2025 12:00 AM EST) Trichomonas vaginalis Negative Negative 2025 12:12 PM EST [facility] Gardnerella vaginalis Negative Negative 2025 12:12 PM EST [facility] Angela Species Negative Negative 12:12 PM EST [facility] ([facility] Swab Vaginal structure / Unknown 01/15/2025 01/15/2025 7:31 PM EST us Nance Costs & Elvin-Jaylan O b-Outpatient Coder [facility] Fine LAB MICROBIOLOGY - GENERAL ORDERABLES Final Result [facility] ([facility]) [facility] [address] [place] [address], [place] [phone] from Last 3 Months Insurance MEDICARE [facility] Care Teams Email Marketing Manager Relationship Specialty Start Date End Date Best Suh MD [address] [place] [address] Dr Reynoso 303 SHARATH Posada PCP - General 10/31/12
--- OUTSIDE RECORDS SUMMARY | 2025-03-18 16:27 | XMS_ITS | Encounter Summary ---
Author Organization [facility] Address [address] [place] [address] Care Team Providers Care Language Instructor Name Role Phone Best Suh MD Primary Care Provider [phone] Encounter Details Date Type Department Care Team (Late st Contact Info) Description 02/13/2025 Lab Requisition [facility] - Main Lab [address] [place] [address] Isidro Rios MD [address] [address] Dysuria Social History Tobacco Use Types Packs/Day [...] if clinically indicated. 02/14/2025 10:36 AM EDT [facility] ([facility]) [facility] Other Urine specimen from urethra / Unknown 02/12/2025 02/13/2025 10:36 AM EDT us Isidro Rios MD LAB MICROBIOLOGY - G ENERAL ORDERABLES Final Result [facility] ([facility]) [facility] [address] [place] [address], documented in this encounter Visit Diagnoses Diagnosis Dysuria documented in this encounter Care Teams Language Instructor Relationship Specialty Start Date End Date Best Suh MD [address] [place] [address] Dr Guevara [place] PCP - General 10/31/12 documented as of this encounter
--- OUTSIDE RECORDS SUMMARY | 2025-03-18 16:27 | XMS_ITS | Encounter Summary ---
Author Organization [facility] Address [address] [place] [address] Care Team Providers Care Chemical Mixer Name Role Phone Best Suh MD Primary Care Provider [phone] Encounter Details Date Type Department Care Team (Late st Contact Info) Description 03/18/2025 Lab Requisition [facility] 299 [facility] [place] [address] Jodi Santillan NP 3640 [facility] [address] [place] [address] Dysuria Social History Tobacco Use Types Packs/Day [...] Normal Urogenital julien. 03/18/2025 11:49 AM EDT [facility] ([facility]) [facility] Other Urine specimen from urethra / Unknown 03/17/2025 03/18/2025 10:43 AM EDT us Jodi Santillan IN SERVICE EDUCATION TEACHER LAB MICROBIOLOGY - GENERA L ORDERABLES Final Result [facility] ([facility]) [facility] [address] [place] [address], documented in this encounter Visit Diagnoses Diagnosis Dysuria documented in this encounter Care Teams Chemical Mixer Relationship Specialty Start Date End Date Bets Suh MD [address] [place] [address] Dr Simpson [place] PCP - General 10/31/12 documented as of this encounter
--- OUTSIDE RECORDS SUMMARY | 2025-03-18 16:27 | XMS_ITS | Encounter Summary ---
Author Organization [facility] Address [address] [place] [address] Care Team Providers Care Crepe Maker Name Role Phone Best Suh MD Primary Care Provider [phone] Encounter Details Date Type Department Care Team (Late st Contact Info) Description 01/15/2025 Lab Requisition [facility] - Main Lab [address] [place] [address] [facility] Lee Ann Fine & Sukumar Ob-Reinforcing Steel Worker Wire Mesh Acute vaginitis Social History Tobacco Use Types [...] Trichomonas vaginalis Negative Negative 2025 12:12 PM [facility] Gardnerella vaginalis Negative Negative 2025 12:12 PM [facility] Angela Species Negative Negative 12:12 PM [facility] Swab Vaginal structure / Unknown 01/15/2025 01/15/2025 7:31 PM EST us Lee Ann Guzman & Sukumar O b-Reinforcing Steel Worker Wire Mesh [facility] Fine LAB MICROBIOLOGY - GENERAL ORDERABLES Final Result [facility] ([facility] [address] [place] [address], documented in this encounter Visit Diagnoses Diagnosis Acute vaginitis Unspecified vaginitis and vulvovaginitis documented in this encounter Care Teams Crepe Maker Relationship Specialty Start Date End Date Best Suh MD [address] [place] [address] Dr Ismael [place] PCP - General 10/31/12 documented as of this encounter
[2025-03-18 16:43] LABS: Alanine Aminotransferase 24 U/L (0-31); Albumin Level 4.4 g/dL (3.5-5.0); Alkaline Phosphatase 81 U/L (39-117); Aspartate Amino Transferase 20 U/L (5-31); Bilirubin Direct 0.2 mg/dL (0.0-0.5); Bilirubin Total 0.5 mg/dL (0.0-1.0); Total Protein 7.5 g/dL (6.5-8.0)
== END 2025-03-18 14:36 | disposition home or self-care (01) ==
LOC: HO.LAB 14:35
PROVIDERS: Absent Provider Physician Assistant; PCP Internal Medicine; Visit Provider Internal Medicine
DX: I10 Essential (primary) hypertension (principal); K21.9 Gastro-esophageal reflux disease without esophagitis; E11.42 Type 2 diabetes mellitus with diabetic polyneuropathy; R10.11 Right upper quadrant pain; R30.0 Dysuria; Z79.899 Other long term (current) drug therapy
CPT/HCPCS: 36415; 80076; 99212

== ENCOUNTER 2025-03-18 14:35 | Outpatient (AMB) | payer MEDICARE, OTHER, SELFPAY ==
[2025-03-18 14:40] VITALS: BP 120/72; PULSE 87; TEMP 36.5; O2SAT 97; BMI 30.3
--- NOTE | 2025-03-18 14:40 | A.OFFPC_ITS ---
Vital Signs 03/18/25 14:40 Height 5 ft 3 in Weight 77.564 kg BMI 30.3 BP 120/72 Blood Pressure Location Lt brachial Position Sitting Pulse 87 Pulse Source Pulse Oximeter Temp 97.7 F Temp Source Axillary Pulse Oximetry (%) 97 Oxygen Delivery Method Room Air Intake Visit Reasons: Routine Windows Systems Administrator Required: No Accompanied by: Self / Same As Patient Allergies ciprofloxacin [CIPROFLOXACIN] Allergy (Intermediate, Verified 03/18/25 14:43) RASH Tobacco use date assessed: 03/18/25 Fall risk assessment: No Falls in past year Last assessed Fall Risk: 03/18/25 Dental Screening Dental Screen Date: 03/18/25 Did you have a dental visit in the last 12 months?: Yes Did you have a dental problem in the last 6 months where you did not have access to dental care?: No HPI HPI Comments History of Present Illness Details 70-year-old female with history of non-i nsulin-dependent type 2 diabetes, hypertension, GERD, and bilateral polyneuropathy presents to the office for routine follow-up. She remains compliant with her medications. Currently managing diabetes through lifestyle though states she is not always compliant with diabetic diet. She has not yet started for her neuropathy as she states that she is concerned this is carcinogenic. She has several concerns today. She has been to multiple specialists for evaluation of dysuria that occurs primarily in the morning when she wakes up. She does have upcoming appointment with [facility] in 2 weeks. She has been making dietary adjustments. She states she also tested positive for UTI and was prescribed nitrofurantoin by the urogynecology office but states this did not help. She is also reporting vaginal burning but is unsure if this is actually vaginal versus urethral. She is also unclear as to what diabetes is. She is also concerned about ongoing right upper quadrant pain. Concerned about fatty liver. There is no radiation of the pain. No associated nausea or vomiting. [facility] Medical History (Updated 03/18/25 @ 17:23 by ROB Butts) Type 2 diabetes mellitus Neuropathy Surgical History History of colonoscopy (~01/21/24) Family History (Updated 03/18/25 @ 14:44 by Jeanette Alainz [place]) Mother Dementia Afib Arthritis Mental health disorder Father Gastric cancer Social History Housing: House Alcohol intake: current Alcohol intake frequency: does not drink Patient Tobacco Use Status: Never used Tobacco e-Cigarette/Vaping Use: Never Used service: No Current occupational status: retired Cognitive needs: No Hearing needs: No Vision needs: Yes (rx glasses) Questionnaire PHQ-9 Over the last 2 weeks, how often have you been bothered by any of the following problems? 1. Little interest or pleasure in doing things: not at all 2. Feeling down, depressed, or hopeless: several days 3. Trouble falling or staying asleep, or sleeping too much: not at all 4. Feeling tired or having little energy: several days 5. Poor appetite or overeating: not at all 6. Feeling bad about yourself - or that you are a failure or have let yourself or your family down: not at all 7. Trouble concentrating on things, such as reading the newspaper or watching television: not at all 8. Moving or speaking so slowly that other people could have noticed. Or the opposite - being so fidgety or restless that you have been moving around a lot more than usual: not at all 9. Thoughts that you would be better off or of hurting yourself in some way: not at all Total score: 2 Source: Developed by Drs. Alvarado Pratt, Maria Esther Saucedo, Patricio Cherry and colleagues, with an educational silvia from [employer]. Thrive Questionnaire Date Thrive assessed: 03/18/25 I am a: Patient Within the past 12 months, did the food you bought not last and you didn't have the money to get more?: Never true Within the past 12 months, did you worry whether your food would run out before you got money to buy more?: Never true Do you have trouble paying for medicines?: No Do you have trouble getting transportation to medical appointments?: No Do you have trouble paying your heating and electricity bill?: No Do you have trouble taking care of your child, family member or friend?: No Do you have trouble with day-to-day activities such as bathing, preparing meals, shopping, managing finances, etc.?: No Are you currently unemployed and looking for a job?: No Are you interested in more education?: No THRIVE Score: 0 AUDIT C Alcohol Use Questionnaire (AUDIT-C) 1. How often do you have a drink containing alcohol?: Never 3. How often do you have six or more drinks on one occasion?: Never Total Score: 0 JEFFERY-7 AMB Questionnaire JEFFERY-7 Date JEFFERY - 7 assessed: 03/18/25 Feeling nervous, anxious, or on edge: 0 = Not at all Not being able to stop or control worryin = Not at all Worrying too much about different things: 0 = Not at all Trouble relaxin = Not at all Being so restless that it is hard to sit still: 0 = Not at all Becoming easily annoyed or irritable: 0 = Not at all Feeling afraid as if something awful might happen: 0 = Not at all Total JEFFERY-7 score (0-4 normal; 5-9 mild; 10-14 moderate; 15-21 severe): 0 Source: Developed by Drs. Alvarado Pratt, Maria Esther Saucedo, Patricio Cherry and colleagues, with an educational silvia from [employer]. Review of Systems Const All systems reviewed & are unremarkable except as noted in HPI and below Physical exam (Primary Care) Vital Signs: Last Vital Signs Temp 97.7 F 03/18/25 14:40 Pulse 87 03/18/25 14:40 BP 120/72 03/18/25 14:40 Pulse Ox 97 03/18/25 14:40 Oxygen Delivery Method Room Air 03/18/25 14:40 BMI result Body Mass Index 30.3 Tobacco/Smoking Status: Tobacco use Status Tobacco use date assessed 03/18/25 03/18/25 14:49 Patient Tobacco Use Status Never used Tobacco 03/18/25 14:49 e-Cigarette/Vaping Use Never Used 03/18/25 14:49 PHQ-9: PHQ-9 Score PHQ-9: Total score 2 03/18/25 15:21 Thrive Assessment: Date of Thrive Assessment Date Thrive assessed 03/18/25 03/18/25 14:49 Const Other: Constitutional - Awake and Alert, No apparent distress Eyes - PERRLA, EOMI Cardiovascular - S1S2, RRR, No edema Respiratory - Normal lung expansion, Normal respiratory effort, No respiratory distress, CTA bilaterally Gastrointestinal - mild right upper quadrant tenderness to palpation, ND; +BS; No rebound or guarding Extremities - no calf tenderness bilaterally, no swelling Skin - Warm/Dry Neurological - Alert & oriented x3 Psychological - anxious appear t Coding Level of Care Code New Pt Level 4 (88581) Complex EM visit Add On G2211 Diagnoses HTN (hypertension) I10 GERD (gastroesophageal reflux disease) K21.9 Neuropathy G62.9 Type 2 diabetes mellitus E11.9 RUQ pain R10.11 Dysuria R30.0 Assessment & Plan Assessment & Plan (1) HTN (hypertension): Code(s): I10 - Essential (primary) hypertension Category: Medical Plan: Controlled. Continue losartan 50 mg b.i.d.. Low-sodium diet. Check BMP to evaluate renal function and electrolyte levels (2) GERD (gastroesophageal reflux disease): Code(s): K21.9 - Gastro-esophageal reflux disease without esophagitis Category: Medical Plan: Stable. Continue omeprazole (3) Neuropathy: Code(s): G62.9 - Polyneuropathy, unspecified Category: Medical Plan: Discussed that her polyneuropathy would benefit from gabapentin. There is no or little evidence that gabapentin is carcinogenic. (4) Type 2 diabetes mellitus: Code(s): E11.9 - Type 2 diabetes mellitus without complications Category: Medical Plan: Educated on the pathophysiology of type 2 diabetes as well as the symptoms of uncontrolled type 2 diabetes. We will send glucometer, lancets, and strips to her pharmacy to check fasting glucose and is educated on normal limits. Counseled on diabetic diet and exercise. She is interested in referral to [facility]. (5) RUQ pain: Code(s): R10.11 - Right upper quadrant pain Category: Medical Plan: Liver panel ordered. Reviewed most recent CT scan which showed possible hepatic steatosis. However given ongoing discomfort will order right upper quadrant ultrasound. She is status post cholecystectomy. No fevers (6) Dysuria: Code(s): R30.0 - Dysuria Category: Medical Plan: Suspected to be related to interstitial cystitis though follow-up as scheduled with Urology as recommended. She is referred to pelvic floor therapy Plan Follow-up in 3 months with labs completed prior to visit. Orders: Orders PT Evaluation and Treatment Today N30.10 - Interstitial cystitis (chronic) without hematuria Liver Panel Today R10.11 - Right upper quadrant pain Hemoglobin A1c 10 Weeks E11.9 - Type 2 diabetes mellitus without complications Basic Metabolic Panel 10 Weeks E11.9 - Type 2 diabetes mellitus without complications Microalbumin, Random (w Creat) 10 Weeks E11.9 - Type 2 diabetes mellitus without complications US abdomen limited Today R10.11 - Right upper quadrant pain
--- OUTSIDE RECORDS SUMMARY | 2025-03-18 15:52 | XMS_ITS | Encounter Summary ---
Author Organization [facility] Address [address] [place] [address] Care Team Providers Care Marketing Finance Specialist Name Role Phone Best Suh MD Primary Care Provider [phone] Encounter Details Date Type Department Care Team (Late st Contact Info) Description 01/15/2025 Lab Requisition [facility] - Main Lab [address] [place] [address] [facility] Lee Ann Fine & Sukumar Ob-Shipper Acute vaginitis Social History Tobacco Use Types [...] Trichomonas vaginalis Negative Negative 2025 12:12 PM [facility] Gardnerella vaginalis Negative Negative 2025 12:12 PM [facility] Angela Species Negative Negative 12:12 PM [facility] Swab Vaginal structure / Unknown 01/15/2025 01/15/2025 7:31 PM EST us Lee Ann Guzman & Sukumar O b-Shipper [facility] Fien LAB MICROBIOLOGY - GENERAL ORDERABLES Final Result [facility] [address] [place] [address], documented in this encounter Visit Diagnoses Diagnosis Acute vaginitis Unspecified vaginitis and vulvovaginitis documented in this encounter Care Teams Marketing Finance Specialist Relationship Specialty Start Date End Date Best Suh MD [address] [place] [address] Dr Ismael [place] PCP - General 10/31/12 documented as of this encounter
--- OUTSIDE RECORDS SUMMARY | 2025-03-18 15:52 | XMS_ITS | Clinical Summary ---
Author Organization [facility] [address] [facility] Address [address] [place] [address] Phone Care Team Providers Care Fish House Worker Name Role Phone Best Suh MD Primary Care Provider [phone] Allergies Active Allergy Reactions Criticality Noted Date [...] Encounters Date Type Department Care Team Description 03/18/2025 Lab Requisition [facility] - Main Lab [address] [place] [address] Jodi Santillan NP Dysuria 02/13/2025 Lab Requisition [facility] [address] [place] [address] Isidro Rios MD Dysuria 01/15/2025 Lab Requisition [facility] [address] [place] [address] [facility] Lee Ann Fine & Sukumar Ob-Metal Polisher Acute vaginitis from Last 3 Months Social [...] 2023-2 5 season) 2024 10/20/2021, 03/28/2021, 03/07/2021 Hypertension/CHF/CAD Annual BMP Blood Test 10/22/2024 Influenza Vaccine (Season Ended) 2025 RSV Immunization Adult Patients (1 - 1-dose 75+ series) 2029 HIB [...] age to complete this topic Meningococcal B Vaccine Aged Out No l onger eligible based on patient's age to complete this topic RSV Immunization Patients Under 20 months Aged Out No longer eligible b ased on patient's age to complete this topic Varicella Vaccines Aged Out No longer eligible based on patient's age to complete this topic Procedures Procedure Name Priority Date/Time Associated Diagnosis Comments BACTERIAL IDENTIFICATION AND SUSCEPTIBILITY, AEROBIC Routine 03/17/2025 12:00 AM EDT Dysuria BACTERIAL IDENTIFICATION AND SUSCEPTIBILITY, AEROBIC Routine 02/12/2025 12:00 AM EDT Dysuria VAGINITIS PATHOGENS BY PCR Routine 01/15/2025 12:00 AM EST Acute vaginitis from Last 3 Months Results * Bacterial identification and susceptibility, aerobic (03/17/2025 12:00 AM EDT) Only the most recent of2 resultswithin the time period is included. Culture, Bacterial ID and Sensitivity Light Normal Urogenital julien. 03/18/2025 11:49 AM EDT [facility] Other Urine specimen from urethra / Unknown 03/17/2025 03/18/2025 10:43 AM EDT Jodi Santillan [facility] MICROBIOLOGY - GENERA L ORDERABLES Final Result [facility] [address] [place] [address], * Vaginitis pathogens molecular study (01/15/2025 12:00 AM EST) Trichomonas vaginalis Negative Negative 2025 12:12 PM EST [facility] Gardnerella vaginalis Negative Negative 2025 12:12 PM EST [facility] Angela Species Negative Negative 12:12 PM EST [facility] Swab Vaginal structure / Unknown 01/15/2025 01/15/2025 7:31 PM EST us Nance Costs & Elvin-Jaylan O b-Metal Polisher [facility] Fine LAB MICROBIOLOGY - GENERAL ORDERABLES Final Result [facility] [address] [place] [address], [place] [phone] from Last 3 Months Insurance MEDICARE [facility] Care Teams Fish House Worker Relationship Specialty Start Date End Date Best Suh MD [address] [place] [address] Dr Reynoso [address] SHARATH Posada PCP - General 10/31/12
--- OUTSIDE RECORDS SUMMARY | 2025-03-18 15:52 | XMS_ITS | Encounter Summary ---
Author Organization [facility] Address [address] [place] [address] Care Team Providers Care Panama Hat Smearer Name Role Phone Best Suh MD Primary Care Provider [phone] Encounter Details Date Type Department Care Team (Late st Contact Info) Description 03/18/2025 Lab Requisition [facility] [address] [facility] [place] [address] Jodi Santillan NP 3640 [facility] 103 [place] [address] Dysuria Social History Tobacco Use Types Packs/Day Years [...] AEROBIC Routine 03/17/2025 12:00 AM EDT Dysuria documented in this encounter Results * Bacterial identification and susceptibility, aerobic (03/17/2025 12:00 AM EDT) Culture, Bacterial ID and Sensitivity Light Normal Urogenital julien. 03/18/2025 11:49 AM EDT [facility] ([facility]) [facility] Other Urine specimen from urethra / Unknown 03/17/2025 03/18/2025 10:43 AM EDT us Jodi Santillan FINAL ASSEMBLY AND PACKING SUPERVISOR LAB MICROBIOLOGY - GENERA L ORDERABLES Final Result [facility] ([facility]) [facility] [address] [place] [address], documented in this encounter Visit Diagnoses Diagnosis Dysuria documented in this encounter Care Teams Panama Hat Smearer Relationship Specialty Start Date End Date Best Suh MD [address] [place] [address] Dr Simpson [place] PCP - General 10/31/12 documented as of this encounter
--- OUTSIDE RECORDS SUMMARY | 2025-03-18 15:52 | XMS_ITS | Patient Health Record ---
Author Organization [facility] Address [address] [facility] [place] [address] Care Team Providers Care Poultry Tender Name Role Phone Best Suh MD Primary Care Provider Unavaila Luiz Diaz Unavailable [phone] Allergies Allergen (clinical drug ingredient) Drug/Non Drug [...] 90 Active Ciclopirox 0.77 % 1 application Special Effects Designer ally to affected toenails Twice a day [...] Treatment Pending Test Test Name Order Date 36399 I&D ABSCESS- SIMPLE,SINGLE 023 Insurance Providers Payer Name Payer Address Payer Phone Subscriber Number Group Number Insured Name Patient Relationship to Insured Coverage Start Date Coverage End Date Medicare National Govt Svcs Inc [address] [place] [address] [id number] Olman Hurst i Self - patient is the insured [facility] [address] [place] [address] [phone] [id number] Olman Hurst i Self - patient is the insured Medical (General) History Medical History History ICD Code Arthritis Back,Hip,and Knee pain Cataracts Diverticulosis Neuropathy Headaches/Migraines Osteoporosis Poor circulation chronic sinusitis Surgical History Surgery Date(Month/Year) cholecystectomy 1990
--- OUTSIDE RECORDS SUMMARY | 2025-03-18 15:52 | XMS_ITS | Encounter Summary ---
Author Organization [facility] Address [address] [place] [address] Care Team Providers Care Field Service Poultry Technician Name Role Phone Best Suh MD Primary Care Provider [phone] Encounter Details Date Type Department Care Team (Late st Contact Info) Description 02/13/2025 Lab Requisition [facility] - Main Lab 299 [place] [address] Isidro Rios MD [address] [address] Dysuria Social History Tobacco Use Types Packs/Day [...] Comments BACTERIAL IDENTIFICATION AND SUSCEPTIBILITY, AEROBIC Routine 02/12/2025 12:00 AM EDT Dysuria documented in this encounter Results * Bacterial identification and susceptibility, aerobic (02/12/2025 12:00 AM EDT) Culture, Bacterial ID and Sensitivity Mixed urogenital julien, no uropathogens present. Suggest repeat specimen, if clinically indicated. 02/14/2025 10:36 AM EDT [facility] ([facility]) [facility] Other Urine specimen from urethra / Unknown 02/12/2025 02/13/2025 10:36 AM EDT us Isidro Rios MD LAB MICROBIOLOGY - G ENERAL ORDERABLES Final Result [facility] ([facility]) [facility] [address] [place] [address], documented in this encounter Visit Diagnoses Diagnosis Dysuria documented in this encounter Care Teams Field Service Poultry Technician Relationship Specialty Start Date End Date Best Suh MD [address] [place] [address] Dr Guevara [place] PCP - General 10/31/12 documented as of this encounter
== END 2025-03-18 15:28 | disposition home or self-care (01) ==
LOC: HO.HMCHD 14:36
PROVIDERS: PCP Internal Medicine; Visit Provider Internal Medicine
DX: I10 Essential (primary) hypertension (principal); K21.9 Gastro-esophageal reflux disease without esophagitis; G62.9 Polyneuropathy, unspecified; E11.42 Type 2 diabetes mellitus with diabetic polyneuropathy; R10.11 Right upper quadrant pain; R30.0 Dysuria

== ENCOUNTER → 2025-04-02 16:08 | Outpatient (BNVA) | payer MEDICARE, OTHER, SELFPAY | PROVIDERS: PCP Internal Medicine | DX: Z13.89 Encounter for screening for other disorder (principal) ==

== ENCOUNTER 2025-04-08 13:00 | Outpatient (AMB) | payer MEDICARE, OTHER, SELFPAY ==
--- NOTE | 2025-04-08 13:03 | A.OFFPC_ITS ---
Vital Signs 04/08/25 13:10 Height 5 ft 3 in Weight 78.471 kg BMI 30.6 BP 126/80 Respiration 16 Pulse 83 Pulse Source Pulse Oximeter Temp 97.7 F Temp Source Temporal Artery Scan Pulse Oximetry (%) 98 Oxygen Delivery Method Room Air Intake Visit Reasons: Routine Barrow Worker Required: No Accompanied by: Self / Same As Patient Allergies ciprofloxacin [CIPROFLOXACIN] Allergy (Intermediate, Verified 04/08/25 13:07) RASH Quinolones Allergy (Mild, Verified 04/08/25 14:48) Unknown Tobacco use date assessed: 03/18/25 Dental Screening Dental Screen Date: 03/18/25 HPI HPI Comments History of Present Illness Details 70 year old female presents [facility]. She is reporting a dull ache and prickly sensation from the nape of the neck up the left side of the scalp. No severe pain or burning sensation. Happens intermittently for the last 2 weeks. No vision changes, severe headache, dizziness, ear pain, hearing loss. No fevers chills. 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 [facility] Medical History (Updated 04/08/25 @ 13:26 by ROB Butts) Lumbar degenerative disc disease Type 2 diabetes mellitus Neuropathy Surgical History History of colonoscopy (~01/21/24) Family History (Updated 03/18/25 @ 14:44 by Jeanette Alaniz MA) Mother Dementia Afib Arthritis Mental health disorder Father Gastric cancer Social History Housing: House Alcohol intake: current Alcohol intake frequency: does not drink Patient Tobacco Use Status: Never used Tobacco e-Cigarette/Vaping Use: Never Used service: No Current occupational status: retired Cognitive needs: No Hearing needs: No Vision needs: Yes (rx glasses) Questionnaire Thrive Questionnaire Date Thrive assessed: 03/18/25 JEFFERY-7 AMB Questionnaire JEFFERY-7 Date JEFFERY - 7 assessed: 03/18/25 Source: Developed by Drs. Alvarado Pratt, Maria Esther Saucedo, Patricio Cherry and colleagues, with an educational silvia from [employer]. Review of Systems Const All systems reviewed & are unremarkable except as noted in HPI and below Physical exam (Primary Care) Vital Signs: Last Vital Signs Temp 97.7 F 04/08/25 13:10 Pulse 83 04/08/25 13:10 Resp 16 04/08/25 13:10 BP 126/80 04/08/25 13:10 Pulse Ox 98 04/08/25 13:10 Oxygen Delivery Method Room Air 04/08/25 13:10 BMI result Body Mass Index 30.6 Tobacco/Smoking Status: Tobacco use Status Tobacco use date assessed 03/18/25 04/08/25 13:06 Patient Tobacco Use Status Never used Tobacco 04/08/25 13:06 e-Cigarette/Vaping Use Never Used 04/08/25 13:06 Thrive Assessment: Date of Thrive Assessment Date Thrive assessed 03/18/25 04/08/25 13:06 Const Other: Constitutional - Awake and Alert, No apparent distress Eyes - PERRLA, EOMI Cardiovascular - S1S2, RRR, No edema Respiratory - Normal lung expansion, Normal respiratory effort, No respiratory distress, CTA bilaterally Extremities - no calf tenderness bilaterally, no swelling Skin - Warm/Dry Neurological - Alert & oriented x3, CN II-XII in tact Psychological - Appropriate affect Coding Level of Care Code Est Pt Level 3 (29023) Diagnoses Tension headache G44.209 Assessment & Plan Assessment & Plan (1) Tension headache: Code(s): G44.209 - Tension-type headache, unspecified, not intractable Category: Medical Plan: No alarm symptoms. Unlikely to be occipital neuralgia. Possibly referred pain from cervical spine stenosis. Recommend conservative therapies including ibuprofen or Tylenol. Can use heat or ice as indicated. Recommend gentle stretches and stress reduction. Plan Follow-up for routine visit. Orders: Orders Hemoglobin A1c 6 Weeks E11.9 - Type 2 diabetes mellitus without complications Medications: New lidocaine 5% leave on most painful area for up to 12 hrs 1 patch topical DAILY 30 ea 2RF M51.369 - Other intervertebral disc degeneration, lumbar region without mention of lumbar back pain or lower extremity pain
[2025-04-08 13:10] VITALS: BP 126/80; PULSE 83; RESP 16; TEMP 36.5; O2SAT 98; BMI 30.6
--- OUTSIDE RECORDS SUMMARY | 2025-04-08 13:36 | XMS_ITS | Encounter Summary ---
Author Organization [facility] Address [address] [place] [address] Care Team Providers Care Diamond Die Polisher Name Role Phone Best Suh MD Primary Care Provider [phone] Encounter Details Date Type Department Care Team (Late st Contact Info) Description 01/15/2025 Lab Requisition [facility] - Main Lab [address] [place] [address] [facility] Lee Ann Fine & Sukumar Ob-Finger Grip Machine Operator Acute vaginitis Social History Tobacco Use Types [...] Trichomonas vaginalis Negative Negative 2025 12:12 PM [facility] Gardnerella vaginalis Negative Negative 2025 12:12 PM [facility] Angela Species Negative Negative 12:12 PM [facility] Swab Vaginal structure / Unknown 01/15/2025 01/15/2025 7:31 PM EST us Lee Ann Guzman & Sukumar O b-Finger Grip Machine Operator [facility] Fine LAB MICROBIOLOGY - GENERAL ORDERABLES Final Result [facility] ([facility]) [facility] [address] [place] [address], documented in this encounter Visit Diagnoses Diagnosis Acute vaginitis Unspecified vaginitis and vulvovaginitis documented in this encounter Care Teams Diamond Die Polisher Relationship Specialty Start Date End Date Best Suh MD [address] [place] [address] Dr Ismael [place] PCP - General 10/31/12 documented as of this encounter
--- OUTSIDE RECORDS SUMMARY | 2025-04-08 13:36 | XMS_ITS | Encounter Summary ---
Author Organization [facility] Address [address] [place] [address] Care Team Providers Care Paving Stone Installer Name Role Phone Best Suh MD Primary Care Provider [phone] Encounter Details Date Type Department Care Team (Late st Contact Info) Description 02/13/2025 Lab Requisition [facility] - Main Lab [address] [place] [address] Isidro Rios MD [address] [address] Dysuria Social History Tobacco Use Types Packs/Day [...] if clinically indicated. 02/14/2025 10:36 AM EDT [facility] ([facility]) [facility] Other Urine specimen from urethra / Unknown 02/12/2025 02/13/2025 10:36 AM EDT us Isidro Rios MD LAB MICROBIOLOGY - G ENERAL ORDERABLES Final Result [facility] ([facility]) [facility] [address] [place] [address], documented in this encounter Visit Diagnoses Diagnosis Dysuria documented in this encounter Care Teams Paving Stone Installer Relationship Specialty Start Date End Date Best Suh MD [address] [place] [address] Dr Guevara [place] PCP - General 10/31/12 documented as of this encounter
--- OUTSIDE RECORDS SUMMARY | 2025-04-08 13:36 | XMS_ITS | Patient Health Record ---
Author Organization [facility] Address [address] [facility] [place] [address] Care Team Providers Care Student Truck Driver Name Role Phone Best Suh MD Primary Care Provider Unavaila Luiz Diaz Unavailable [phone] Allergies Allergen (clinical drug ingredient) Drug/Non Drug [...] 90 Active Ciclopirox 0.77 % 1 application News Operations Manager ally to affected toenails Twice a day [...] Treatment Pending Test Test Name Order Date 74617 I&D ABSCESS- SIMPLE,SINGLE 023 Insurance Providers Payer Name Payer Address Payer Phone Subscriber Number Group Number Insured Name Patient Relationship to Insured Coverage Start Date Coverage End Date Medicare National Govt Svcs Inc [address] [place] [address] [id number] Olman Hurst i Self - patient is the insured [facility] [address] [place] [address] [phone] [id number] Olman Hurst i Self - patient is the insured Medical (General) History Medical History History ICD Code Arthritis Back,Hip,and Knee pain Cataracts Diverticulosis Neuropathy Headaches/Migraines Osteoporosis Poor circulation chronic sinusitis Surgical History Surgery Date(Month/Year) cholecystectomy 1990
--- OUTSIDE RECORDS SUMMARY | 2025-04-08 13:36 | XMS_ITS | Clinical Summary ---
Author Organization [facility] 299 [facility] Address [address] [place] [address] Phone Care Team Providers Care Nuclear Control Operator Name Role Phone Best Suh MD Primary Care Provider [phone] Allergies Active Allergy Reactions Criticality Noted Date [...] Care Team Description 03/18/2025 Lab Requisition [facility] - Main Lab [address] [place] [address] Jodi Santillan NP Dysuria 02/13/2025 Lab Requisition [facility] Lab [address] [place] [address] Isidro Rios MD Dysuria 01/15/2025 Lab Requisition [facility] Lab [address] [place] [address] [facility] Lee Ann Fine & Sukumar Ob-Supervisor Liquid Yeast Acute vaginitis from Last 3 Months Social [...] Normal Urogenital julien. 03/18/2025 11:49 AM EDT [facility] Other Urine specimen from urethra / Unknown 03/17/2025 03/18/2025 10:43 AM EDT Jodi Santillan PATTERNMAKER HELPER LAB MICROBIOLOGY - GENERA L ORDERABLES Final Result [facility] [address] [place] [address], * Vaginitis pathogens molecular study (01/15/2025 12:00 AM EST) Trichomonas vaginalis Negative Negative 2025 12:12 PM EST [facility] Gardnerella vaginalis Negative Negative 2025 12:12 PM EST [facility] Angela Species Negative Negative 12:[address] [facility] ([facility] Swab Vaginal structure / Unknown 01/15/2025 01/15/2025 7:31 PM EST us Nance Costs & Elvin-Jaylan O b-Supervisor Liquid Yeast [facility] Fine LAB MICROBIOLOGY - GENERAL ORDERABLES Final Result [facility] ([facility]) [facility] [address] [place] [address], [place] [phone] from Last 3 Months Insurance MEDICARE [facility] Care Teams Nuclear Control Operator Relationship Specialty Start Date End Date Best Suh MD [address] [place] [address] Dr Reynoso 303 SHARATH Posada PCP - General 10/31/12
--- OUTSIDE RECORDS SUMMARY | 2025-04-08 13:36 | XMS_ITS | Encounter Summary ---
Author Organization [facility] Address [address] [place] [address] Care Team Providers Care Security Compliance Specialist Name Role Phone Best Suh MD Primary Care Provider [phone] Encounter Details Date Type Department Care Team (Late st Contact Info) Description 03/18/2025 Lab Requisition [facility] 299 [facility] [place] [address] Jodi Santillan NP 3640 [facility] [address] [place] [address] Dysuria Social History Tobacco Use Types Packs/Day [...] Normal Urogenital julien. 03/18/2025 11:49 AM EDT [facility] ([facility]) [facility] Other Urine specimen from urethra / Unknown 03/17/2025 03/18/2025 10:43 AM EDT us Jodi Santillan FOOD HANDLER LAB MICROBIOLOGY - GENERA L ORDERABLES Final Result [facility] ([facility]) [facility] [address] [place] [address], documented in this encounter Visit Diagnoses Diagnosis Dysuria documented in this encounter Care Teams Security Compliance Specialist Relationship Specialty Start Date End Date Best Suh MD [address] [place] [address] Dr Simpson [place] PCP - General 10/31/12 documented as of this encounter
== END 2025-04-08 13:30 | disposition home or self-care (01) ==
LOC: HO.HMCHD 13:00
PROVIDERS: PCP Internal Medicine; Visit Provider Physician Assistant
DX: G44.209 Tension-type headache, unspecified, not intractable (principal)

== ENCOUNTER → 2025-04-08 13:00 | Outpatient (BNVA) | payer MEDICARE, OTHER, SELFPAY | PROVIDERS: PCP Internal Medicine; Visit Provider Physician Assistant | DX: G44.209 Tension-type headache, unspecified, not intractable (principal); E11.9 Type 2 diabetes mellitus without complications | CPT/HCPCS: 99212 ==

== ENCOUNTER → 2025-04-16 11:09 | Outpatient (BNVA) | payer MEDICARE, OTHER, SELFPAY | PROVIDERS: PCP Internal Medicine ==

== ENCOUNTER 2025-04-28 10:23 | Outpatient (REF) | payer MEDICARE, OTHER, SELFPAY ==
--- NOTE | ~2025-04-28 | US_ITS ---
EXAMINATION: US ABDOMEN LIMITED HISTORY: R10.11 - Right upper quadrant pain TECHNIQUE: Real-time grayscale ultrasound imaging of the right upper quadrant was performed and images were reviewed. COMPARISON: Correlation is made with an unenhanced CT of the abdomen dated 12/08/2024. FINDINGS: Liver: The right lobe of the liver measures 16.0 cm in size. The left lobe of the liver measures 8.4 cm in size. The liver demonstrates increased echotexture, consistent with steatosis. No focal mass or intrahepatic biliary ductal dilatation is identified. There is normal hepatopedal flow in the portal vein. Gallbladder and biliary tree: The gallbladder is surgically absent. The common bile duct is normal in caliber measuring 7 mm. Right Kidney: The right kidney measures 10.2 cm in length. The right kidney is unremarkable, without evidence of masses, hydronephrosis, or calculi. Pancreas: The pancreatic head, neck, and body are unremarkable. The pancreatic tail is obscured by bowel gas. Abdominal aorta and inferior vena cava: The visualized portions of the abdominal aorta and inferior vena cava are normal in caliber. There is no free fluid in the right upper quadrant. US/US abdomen limited IMPRESSION: Hepatomegaly and hepatic steatosis. Electronically signed by: Alvarado Maloney MD 04/28/2025 11:02 AM EDT
--- OUTSIDE RECORDS SUMMARY | 2025-04-28 12:03 | XMS_ITS | Clinical Summary ---
Author Organization [facility] [address] [facility] Address [address] [place] [address] Phone Care Team Providers Care Linotype Operator Name Role Phone Best Suh MD Primary Care Provider [phone] Allergies Active Allergy Reactions Criticality Noted Date [...] Department Care Team Description 03/18/2025 Lab Requisition [facility] Main Lab [address] [place] [address] Jodi Santillan NP Dysuria 02/13/2025 Lab Requisition [facility] Lab [address] [place] [address] Isidro Rios MD Dysuria from Last 3 Months Social History Tobacco [...] Influencers of Health Screening 10/21/2022 COVID-19 Vaccine ( - 2023-2 5 season) 2024 10/20/2021, 03/28/2021, [...] AEROBIC Routine 02/12/2025 12:00 AM EDT Dysuria from Last 3 Months Results * Bacterial identification and susceptibility, aerobic (03/17/2025 12:00 AM EDT) Only the most recent of2 resultswithin the time period is included. Culture, Bacterial ID and Sensitivity Light Normal Urogenital julien. 03/18/2025 11:49 AM EDT [facility] Other Urine specimen from urethra / Unknown 03/17/2025 03/18/2025 10:43 AM EDT us Jodi Santillan TREASURY ASSISTANT LAB MICROBIOLOGY - GENERA L ORDERABLES Final Result [facility] [address] [place] [address], from Last 3 Months Insurance MEDICARE [facility] [employer] [address] [place] [address] Care Teams Linotype Operator Relationship Specialty Start Date End Date Best Suh MD [address] [place] [address] Dr [address] [place], [place] PCP - General 10/31/12
== END 2025-04-28 10:24 | disposition home or self-care (01) ==
LOC: HO.HMGCX 10:23
PROVIDERS: PCP Physician Assistant; Visit Provider Physician Assistant
DX: R10.11 Right upper quadrant pain (principal)
CPT/HCPCS: 76705

== ENCOUNTER → 2025-04-28 10:31 | Outpatient (BNV) | payer MEDICARE, OTHER, SELFPAY | PROVIDERS: PCP Physician Assistant; Visit Provider Radiology Diagnostic Radiology | DX: K76.0 Fatty (change of) liver, not elsewhere classified (principal); R16.0 Hepatomegaly, not elsewhere classified | CPT/HCPCS: 76705 ==

== ENCOUNTER 2025-06-11 10:17 | Outpatient (REF) | payer MEDICARE, OTHER, SELFPAY ==
[2025-06-11 10:46] LABS: Hemoglobin A1C 156.2076 umol/L; Total Hemoglobin (HGBA1C) 3542.0206 umol/L
--- OUTSIDE RECORDS SUMMARY | 2025-06-11 11:04 | XMS_ITS | Patient Health Record ---
Author Organization [facility] Address [address] [facility] [place] [address] Care Team Providers Care Warehouse Production Worker Name Role Phone Best Suh MD Primary Care Provider Unavaila Luiz Diaz Unavailable [phone] Allergies Allergen (clinical drug ingredient) Drug/Non Drug Allergy documented on EMR Reaction Allergy Type Onset Date Status amoxicillin Amoxicillin diarrhea Drug Allergy Act ericka ciprofloxacin Cipro hives Drug Allergy Act ericka erythromycin Erythromycin diarrhea Drug Allergy A ctive Reason For Referral No Information Medications Medication SIG (Take, Route, Frequency, Duration) Notes Start Date End Date Status Omeprazole 20 MG Oral; Duration: 90 Active Losartan Potassium 50 MG Oral; Duration: 90 Active Ciclopirox 0.77 % 1 application [employer] to affected toenails Twice a day; Duration: 30 days 02/21/2023 Active Vitamin D Active [...] Treatment Pending Test Test Name Order Date 71234 I&D ABSCESS- SIMPLE,SINGLE 023 Insurance Providers Payer Name Payer Address Payer Phone Subscriber Number Group Number Insured Name Patient Relationship to Insured Coverage Start Date Coverage End Date Medicare National [employer] [address] [place] [address] [id number] Olman Hurst i Self - patient is the insured [facility] [address] [place] [address] [phone] [id number] Olman Hurst i Self - patient is the insured Medical (General) History Medical History History ICD Code Arthritis Back,Hip,and Knee pain Cataracts Diverticulosis Neuropathy Headaches/Migraines Osteoporosis Poor circulation chronic sinusitis Surgical History Surgery Date(Month/Year) cholecystectomy 1990
--- OUTSIDE RECORDS SUMMARY | 2025-06-11 11:04 | XMS_ITS | Clinical Summary ---
Author Organization [facility] 299 [facility] Address [address] [place] [address] Phone Care Team Providers Care Tour Operator Name Role Phone Best Suh MD Primary Care Provider [phone] Allergies Active Allergy Reactions Criticality Noted Date [...] Department Care Team Description 03/18/2025 Lab Requisition [facility] - Main Lab [address] [facility] [place] [id number] Jodi Santillan NP Dysuria from Last 3 Months Social History [...] 10/22/2024 2:04 PM EST Plan of Treatment Upcoming Encounters Date Type Department Care Team (Late st Contact Info) Description 06/24/2025 2:20 PM EDT Office Visit Gastroenterology - [address] [facility] [address] [place] [id number] Forest Espinosa MD [address] [facility] [address] [place] [address] Health Maintenance Due Date Last Done Comments Breast Cancer Screening 1955 DTaP,Tdap,and Td Vaccines (1 - Tdap) 1973 Pneumococcal Vaccine: 50+ Years (1 of 2 - PCV) 1973 Zoster Vaccines (1 of 2) 2004 Cholesterol Screening (Lipid Panel) 10/21/2022 Colorectal Cancer Screening: Colonoscopy 10/21/2022 Falls Risk Assessment 10/21/2022 Hepatitis C Screening 10/21/2022 Medicare Annual Wellness Visit 10/21/2022 Osteoporosis Screening (Bone Density Screening) 10/21/2022 Social Influencers of Health Screening 10/21/2022 COVID-19 Vaccine (4 - 2023-2 5 season) 2024 10/20/2021, 03/28/2021, 03/07/2021 Hypertension/CHF/CAD Annual BMP Blood Test 10/22/2024 Depression Screening 11/19/2024 Influenza Vaccine (#1) 2025 RSV Immunization Adult Patients (1 - [...] AEROBIC Routine 03/17/2025 12:00 AM EDT Dysuria from Last 3 Months Results * Bacterial identification and susceptibility, aerobic (03/17/2025 12:00 AM EDT) Culture, Bacterial ID and Sensitivity Light Normal Urogenital julien. 03/18/2025 11:49 AM EDT [facility] Other Urine specimen from urethra / Unknown 03/17/2025 03/18/2025 10:43 AM EDT us Jodi Santillan MARKETING PRODUCER LAB MICROBIOLOGY - GENERA L ORDERABLES Final Result [facility] [address] [place] [address], from Last 3 Months Insurance MEDICARE [facility] [address] [place] [address] Care Teams Tour Operator Relationship Specialty Start Date End Date Best Suh MD [address] [place] [address] [address] [place], [place] PCP - General 10/31/12
[2025-06-11 11:13] LABS: Anion Gap 11 (12-20); Blood Urea Nitrogen 20 mg/dL (9-16); Calcium 9.4 mg/dL (8.4-10.2); Carbon Dioxide 26 mmol/L (22-29); Chloride 108 mmol/L (96-108); Estimated Glomerular Filt Rate > 60; Potassium 4.4 mmol/L (3.3-5.1); Sodium 141 mmol/L (135-145)
== END 2025-06-11 10:18 | disposition home or self-care (01) ==
LOC: HO.LAB 10:17
PROVIDERS: PCP Internal Medicine; Visit Provider Physician Assistant
DX: E11.9 Type 2 diabetes mellitus without complications (principal)
CPT/HCPCS: 36415; 80048; 82043; 82570; 83036

== ENCOUNTER 2025-07-02 10:24 | Outpatient (REF) | payer MEDICARE, OTHER, SELFPAY ==
[2025-07-02 10:55] LABS: MANUAL DIFF FLAG NO
[2025-07-02 11:02] LABS: Hematocrit 39.9 % (37.0-47.0); Hemoglobin 13.5 g/dl (12.0-16.0); Imm Gran Abs Auto 0.02 X10*3/uL (0.00-0.03); Imm Gran Pct Auto 0.4 % (0.0-0.4); Lymphocytes Absolute Auto 1.9 X10*3/uL (1.2-4.9); Mean Corpuscular HGB Conc 33.8 g/dl (31.0-35.0); Mean Corpuscular Hemoglobin 28.4 pg (27.0-33.0); Mean Corpuscular Volume 84.0 fL (80.0-98.0); NRBC Abs Auto 0.000 X10*3/uL (0.0-0.012); NRBC Pct Auto 0.0 /100WBC (0.0-0.2); Platelet Count 260 X10*3/uL (160-400); Red Blood Count 4.75 X10*6/uL (4.20-5.50); White Blood Count 5.5 X10*3/uL (4.8-10.8)
[2025-07-02 11:07] LABS: Hemoglobin A1C 154.2904 umol/L; INTERNATIONAL NORM RATIO 1.0 (0.9-1.1); Prothrombin Time 11.8 SEC (10.9-12.4); Total Hemoglobin (HGBA1C) 3599.6677 umol/L
--- OUTSIDE RECORDS SUMMARY | 2025-07-02 11:16 | XMS_ITS | Clinical Summary ---
Author Organization [facility] [address] [facility] Address [address] [place] [address] Phone Care Team Providers Care Mortgage Underwriter Name Role Phone Best Suh MD Primary Care Provider [phone] Allergies Active Allergy Reactions Criticality Noted Date [...] polyethylene glycol (PEG) 17 gram/dose oral powder Take 17 g by mouth if needed for constipation . Active estradioL (ESTRACE) 0.01 % (0.1 mg/gram) vaginal cream Insert 2 g into the vagina 1 (one) time each day. 02/12/2025 Active blood sugar diagnostic (FreeStyle Lite Strips) test strip USE TO CHECK FASTING BLOOD SUGAR EVERY MORNING. GOAL IS LESS THAN 130 04/03/2025 Active FreeStyle Lite Meter monitoring kit USE TO CHECK FASTING BLOOD SUGAR EVERY MORNING. GOAL IS LESS THAN 130 04/03/2025 Active hydrocortisone (ANUSOL-HC) 2.5 % rectal cream Insert into the rectum if needed. 07/10/2024 Active ibuprofen (AdviL) 200 mg tablet Take 2 tablets (400 mg total) by mouth every 6 (six) hours if needed. 02/26/2023 Active Active Problems Problem Noted Date Diagnosed Date Arthritis 06/24/2025 Back pain 06/24/2025 Class 1 obesity 06/24/2025 Diverticulitis 06/24/2025 Heartburn 06/24/2025 High blood pressure 06/24/2025 Osteoporosis 06/24/2025 Abnormal liver diagnostic imaging 06/24/2025 Right upper quadrant abdominal pain 06/24/2025 History of adenomatous polyp of colon 06/24/2025 Irritable bowel syndrome wit h both constipation and diarrhea 10/20/2024 Fatty liver 10/20/2024 Encounters Date Type Department Care Team Description 06/30/2025 Telephone Gastroenterology - [place] [address] [facility] [address] [facility] [address] [place] [address] Kandi Mcgrath [place] 06/24/2025 2:20 PM EDT Office Visit Gastroenterology - [address] [facility] [address] [facility] [address] [place] [phone] Forest Espinosa MD Right upper quadrant abdominal pain (Primary Dx); Abnormal liver diagnostic imaging; History of adenomatous polyp of colon; Irritable bowel syndrome with constipation from Last 3 Months Social History Tobacco Use Types Packs/Day Years Used Date Smoking Tobacco: Never Smokeless Tobacco: Never Tobacco Cessation:Counseling Given: Not Answered Alcohol Use Standard Drinks/Week Comments Never 0 (1 standard drink = 0.6 oz pur e alcohol) Comments Unknown Sex and Gender Information Value Date Recorded Sex Assigned at Not on file Legal Sex Female 10:07 PM EST Gender Identity Not on file Sexual Orientation Not on file Obstetrics History Last Filed Vital Signs Vital Sign Reading Time Taken Comments Blood Pressure - - Pulse - - Temperature - - Respiratory Rate - - Oxygen Saturation - - Inhaled Oxygen Concentration - - Weight 74.4 kg (164 lb) 06/24/2025 2:18 PM EDT Height 160 cm (5' 3 ) 06/24/2025 2:18 PM EDT Body Mass Index 29.05 06/24/2025 2:18 PM EDT Plan of Treatment Upcoming Encounters Date Type Department Care Team (Late st Contact Info) Description 08/13/2025 12:00 PM EDT Appointment [facility] Endoscopy [address] [place] [address] Forest Espinosa MD [address] [facility] [address] [place] [address] Health Maintenance Due Date Last Done Comments [...] 2023-2 5 season) 2024 10/20/2021, 03/28/2021, 03/07/2021 Depression Screening 11/19/2024 Influenza Vaccine (#1) 2025 Hypertension/CHF/CAD Annual BMP Blood Test 06/24/2026 06/24/2025 RSV Immunization Adult Patients (1 - 1-dose [...] Procedure Name Priority Date/Time Associated Diagnosis Comments CBC WITH AUTO DIFFERENTIAL Routine 06/24/2025 3:09 PM EDT Right upper quadrant abdominal pain Abnormal liver diagnostic imaging CBC AND DIFFERENTIAL Routine 06/24/2025 3:09 PM EDT Right upper quadrant abdominal pain Abnormal liver diagnostic imaging COMPREHENSIVE METABOLIC PANEL Routine 06/24/2025 3:09 PM EDT Right upper quadrant abdominal pain Abnormal liver diagnostic imaging US ABDOMEN LIMITED Routine 04/28/2025 2: 32 PM EDT from Last 3 Months Results * CBC auto differential (06/24/2025 3:09 PM EDT) [facility] WBC 8.0 4.8 - 10.8 K/mcL LAB HEMETOLOGY METHOD 06/24/2025 3:31 PM [facility] LAB RBC 4.80 3.80 - 4.80 M/mcL LAB [facility] Hemoglobin 13.4 11.5 - 16.0 g/dL LAB HEMETOLOGY METHOD 06/24/2025 3:31 PM [facility] LAB Hematocrit 40.3 35.0 - 47.0 % LAB HEMETOLOGY METHOD 06/24/2025 3:[facility] MCV 84.5 79.0 - 98.0 FL LAB HEMETOLOGY METHOD 06/24/2025 3:31 PM EDT [facility] LAB MCH 28.1 27.0 - 32.0 pcg LAB HEMETOLOGY METHOD 06/24/2025 3:31 PM [facility] LAB MCHC 33.3 32.0 - 37.0 g/dL LAB HEMETOLOGY METHOD 06/24/2025 3:31 PM [facility] LAB RDW 12.6 11.0 - 15.0 % LAB HEMETOLOGY METHOD 06/24/2025 3:31 PM [facility] LAB Platelets 260 130 - 400 K/mcL LAB HEMETOLOGY METHOD 06/24/2025 3:31 PM EDT [facility] LAB MPV 10.0 7.0 - 11.0 FL LAB HEMETOLOGY METHOD 06/24/2025 3:31 PM [facility] LAB NRBC 0.0 <1.0 % LAB HEMETOLOGY METHOD 06/24/2025 3:31 PM [facility] LAB NRBC Absolute 0.00 <0.10 K[facility] LAB HEMETOLOGY METHOD 06/24/2025 3[facility] Neutrophils Relative 52.9 % LAB HEMETOLOGY METHOD 06/24/2025 3:31 PM [facility] LAB Lymphocytes Relative 31.3 % LAB HEMETOLOGY METHOD 06/24/2025 3:31 PM [facility] LAB Monocytes Relative 11.1 % LAB HEMETOLOGY METHOD 06/24/2025 3:31 PM [facility] LAB Eosinophils Relative 3.1 % LAB HEMETOLOGY METHOD 06/24/2025 3:31 PM [facility] LAB Basophils Relative 1.3 % LAB HEMETOLOGY METHOD 06/24/2025 3:31 PM [facility] LAB Immature Granulocytes Relative 0.3 % LAB HEMETOLOGY METHOD 06/24/2025 3:31 PM [facility] LAB Neutrophils Absolute 4.21 1.50 - 7.00 K/mcL LAB HEMETOLOGY METHOD 06/24/2025 3:31 PM [facility] LAB Lymphocytes Absolute 2.49 1.00 - 5.00 K/mcL LAB HEMETOLOGY METHOD 06/24/2025 3:31 PM [facility] LAB Monocytes Absolute 0.88 0.20 - 1.00 K/mcL LAB HEMETOLOGY METHOD 06/24/2025 3:31 PM [facility] LAB Eosinophils Absolute 0.25 0.00 - 0.50 K/mcL LAB HEMETOLOGY METHOD 06/24/2025 3:31 PM EDT [facility] Basophils Absolute 0.10 0.00 - 0.20 K/[facility] LAB HEMETOLOGY METHOD 06/24/2025 3:31 PM EDT [facility] LAB Immature Granulocytes Absolute 0.02 0.00 - 0.03 K/[facility] LAB HEMETOLOGY METHOD 06/24/2025 3:31 PM EDT [facility] Blood Venous blood specimen / Unknown Venipuncture / Unknown 06/24/2025 3:09 PM EDT 06/24/2025 3:20 PM EDT Forest Espinosa MD LAB BLOOD ORDERABLES Final Result [facility] [address] [place] [address], * Comprehensive metabolic panel (06/24/2025 3:09 PM EDT) Sodium 137 133 - 145 mmol/L LAB CHEMISTRY METHOD 06/24/2025 4:25 PM [facility] LAB Potassium 3.7 3.5 - 5.5 mmol/L LAB CHEMISTRY METHOD 06/24/2025 4:25 PM [facility] LAB Chloride 105 96 - 110 mmol/L LAB CHEMISTRY METHOD 06/24/2025 4:25 PM [facility] LAB CO2 29 21 - 32 mmol/L LAB CHEMISTRY METHOD 06/24/2025 4:25 PM [facility] LAB Anion Gap 3 3 - 11 LAB CHEMISTRY METHOD 06/24/2025 4:25 PM [facility] LAB Glucose 79 70 - 100 mg/dL LAB CHEMISTRY METHOD 06/24/2025 4:25 PM [facility] LAB BUN 21 5 - 25 mg/dL LAB CHEMISTRY METHOD 06/24/2025 4:25 PM EDT [facility] Creatinine 0.92 0.50 - 1.10 mg/dL LAB CHEMISTRY METHOD 06/24/2025 4:25 PM [facility] LAB eGFR 67 >=60 mL/min/1. 73m2 LAB CHEMISTRY METHOD 06/24/2025 4:25 PM [facility] LAB Comment:Calculation based on the Chronic Kidney Disease Epidemiology Collaboration (CKD-EPI) equation refit without adjustment for race. BUN/Creatinine Ratio 22.8 LAB CHEMISTRY METHOD 06/24/2025 4:25 PM [facility] LAB Calcium 9.7 8.5 - 10.5 mg/dL LAB CHEMISTRY METHOD 06/24/2025 4:25 PM [facility] LAB AST (SGOT) 21 10 - 42 unit/L LAB CHEMISTRY METHOD 06/24/2025 4:25 PM [facility] LAB ALT (SGPT) 25 10 - 60 unit/L LAB CHEMISTRY METHOD 06/24/2025 4:25 PM [facility] LAB Alkaline Phosphatase 79 42 - 121 unit/L LAB CHEMISTRY METHOD 06/24/2025 4:25 PM [facility] LAB Total Protein 7.2 6.0 - 8.0 g/dL LAB CHEMISTRY METHOD 06/24/2025 4:25 PM [facility] LAB Albumin 4.2 3.2 - 5.0 g/dL LAB CHEMISTRY METHOD 06/24/2025 4:25 PM [facility] LAB Total Bilirubin 0.6 0.0 - 1.4 mg/dL LAB CHEMISTRY METHOD 06/24/2025 4:25 PM [facility] LAB Blood Venous blood specimen / Unknown Venipuncture / Unknown 06/24/2025 3:09 PM EDT 06/24/2025 3:21 PM EDT us Forest Espinosa MD LAB BLOOD ORDERABLES Final Result [facility] LAB [address] [place] [address], * US Abdomen Limited (04/28/2025 2:32 PM EDT) Anatomical Region Laterality Modality Body Ultrasound us Historical Provider MD BESS US PROCEDURES Final R esult from Last [address] [facility] Care Teams Mortgage Underwriter Relationship Specialty Start Date End Date Best Suh MD [address] [place] [address] [address]AR[address] Posada PCP - General 10/31/12
--- OUTSIDE RECORDS SUMMARY | 2025-07-02 11:17 | XMS_ITS | Patient Health Record ---
Author Organization [facility] [place] Address [address] [place] [address] Care Team Providers Care White Sugar Syrup Operator Name Role Phone Best Suh MD Primary Care Provider Unavaila Luiz Diaz Unavailable [phone] Allergies Allergen (clinical drug ingredient) Drug/Non Drug [...] 90 Active Ciclopirox 0.77 % 1 application Unionmelt Operator ally to affected toenails Twice a day; [...] Treatment Pending Test Test Name Order Date 13413 I&D ABSCESS- SIMPLE,SINGLE 023 Insurance Providers Payer Name Payer Address Payer Phone Subscriber Number Group Number Insured Name Patient Relationship to Insured Coverage Start Date Coverage End Date Medicare National [employer] [address] [place] [address] [phone] [id number] Olman Hurst i Self - patient is the insured [facility] [address] [place] [address] [id number] Olman Hurst i Self - patient is the insured Medical (General) History Medical History History ICD Code Arthritis Back,Hip,and Knee pain Cataracts Diverticulosis Neuropathy Headaches/Migraines Osteoporosis Poor circulation chronic sinusitis Surgical History Surgery Date(Month/Year) cholecystectomy 1990
[2025-07-02 11:38] LABS: Alanine Aminotransferase 25 U/L (0-31); Albumin Level 4.4 g/dL (3.5-5.0); Alkaline Phosphatase 71 U/L (39-117); Aspartate Amino Transferase 21 U/L (5-31); Iron 78 mcg/dL (30-160); Percent Iron Saturation 28 % (15-50); Total Iron Binding Capacity 275 mcg/dL (228-428); Total Protein 6.9 g/dL (6.5-8.0); Unsaturated Iron Binding 197 ug/dL
[2025-07-02 11:48] LABS: HBS Num1 0.93 mIU/mL (0-7.99); HBc Num1 0.08 S/CO (0.00-0.79); HBsAGNum1 0.42 S/CO (0.00-0.99); Hepatitis B Surface Antigen Negative (Negative); ~HepC Num1 0.13 S/CO (0.00-0.79); ~Hepatitis B Surface Antibody NONREACTIVE (Nonreactive); ~Hepatitis C Antibody Nonreactive (Nonreactive)
[2025-07-02 11:55] LABS: Ferritin 269 ng/mL (10-250)
[2025-07-05 21:54] LABS: Anti Nuclear Antibody Screen NEGATIVE (NEGATIVE)
[2025-07-08 01:39] LABS: FIB-ALT 17 U/L (6-29); FIB-Alpha-2-Macroglobulin 176 mg/dL (106-279); FIB-Apolipoprotein A1 139 mg/dL (101-198); FIB-GGT 28 U/L (3-65); FIB-Haptoglobin 91 mg/dL (43-212); FIB-Total Bilirubin 0.3 mg/dL (0.2-1.2); Liver Fibrosis Score 0.21; Liver Fibrosis Stage F0-F1; Nec Inflam Act Grade A0; Nec Inflam Act Score 0.05
== END 2025-07-02 10:25 | disposition home or self-care (01) ==
LOC: HO.10HDL 10:24
PROVIDERS: Physician Assistant; Visit Provider Internal Medicine
DX: Z11.59 Encounter for screening for other viral diseases (principal); K76.0 Fatty (change of) liver, not elsewhere classified; E11.9 Type 2 diabetes mellitus without complications; Z72.89 Other problems related to lifestyle
CPT/HCPCS: 36415; 80076; 81596; 82103; 82728; 83036; 83540; 85025; 85610; 86015; 86038; 86381; 86704; 86706; 86803; 87340

== ENCOUNTER 2025-07-03 13:59 | Outpatient (AMB) | payer MEDICARE, OTHER, SELFPAY ==
--- OUTSIDE RECORDS SUMMARY | 2025-07-02 05:00 | XMS_ITS ---
Author Organization [facility] Address [address] [place] [address] Care Team Providers Care Information Systems Audit Manager Name Role Phone JAX VALENTE Primary Care Provider Alvarado Barrett [phone] Allergies Allergen (clinical drug ingredient) Drug/Non Drug Allergy documented on EMR Reaction Allergy Type Onset Date Status ciprofloxacin Cipro Unknown Drug Allergy Act ericka Results Component Value Reference Range Notes Prothrombin Time INR (Not ye t reviewed by provider) Interpretation: Performing Lab:[facility], [address] [place] [phone] Notes/Report: Prothrombin Time 11.8 10.9-12.4 SEC INTERNATIONAL [...] yet reviewed b y provider) Interpretation: Performing Lab:[facility], [address] [place] [phone] Notes/Report: Ferritin 269 10-250 ng/mL Hepatitis B,C Profile (Not y et reviewed by provider) Interpretation: Performing Lab:[facility], [address] [place] [phone] Notes/Report: Hepatitis B Surface Antibody NONREACTIVE Nonreactive [...] a day Active Vitamin D3 50 MCG (2000 UT) 1 capsule Orally Once a day Active [...] W/U Status Risk Notes Problem Fatty liver (K76.0) Active confirmed Problem History of adenomatous polyp of colon (164014188) History of adenomatous polyp of colon (Z86.0101) Active confirmed Problem Colon cancer screening (444117025) Colon cancer screening (Z12.11) Active confirmed Vital Signs Blood pressure systolic 111 mm Hg 07/02/20 25 Blood pressure diastolic 77 mm Hg 025 Height 63 in 07/02/2025 Weight 163 lbs 07/02/2025 BMI 28.87 kg/m2 07/02/2025 Encounters Encounter Location Date Provider Diagnosis [facility] [address] [place] [address] 07/02/2025 Alvarado Mccoy Fatty liver K76.0 ; History of adenomatous polyp of colon Z86.0101 and Colon cancer screening Z12.11 Assessments Encounter Date Diagnosis (ICD Code) Assessment Notes Treatment Notes Treatment Clinical Notes Section Notes 07/02/2025 Fatty liver (ICD-10 - K76.0) For the fatty liver: Watch diet, lose weight, monitor and treat high blood sugars, Overall, Douglas appears quite well. She does not describe [...] blood sugars remain closely monitored by you. Douglas is quite concerned about her liver. I [...] history of tubular adenomas in the past. Douglas was comfortable with this plan. Thank you again for allow me to participate in Douglas's care. I will continue to keep you advised of her progress. 07/02/2025 History of adenomatous polyp of colon (ICD-10 - Z86.0101) Overall, Douglas appears quite well. She does not describe [...] blood sugars remain closely monitored by you. Douglas is quite concerned about her liver. I [...] history of tubular adenomas in the past. Douglas was comfortable with this plan. Thank you again for allow me to participate in Douglas's care. I will continue to keep you advised of her progress. 07/02/2025 Colon cancer screening (ICD-10 - Z12.11) Repeat colonoscopy in 01/2027 Overall, Douglas appears quite well. She does not describe [...] blood sugars remain closely monitored by you. Douglas is quite concerned about her liver. I [...] history of tubular adenomas in the past. Douglas was comfortable with this plan. Thank you again for allow me to participate in Douglas's care. I will continue to keep you [...] Mitochondrial Antibody 07/02/2025 Smooth Muscle Antibody 07/02/2025 Hepatitis B,C Profile 07/02/2025 Next Appt Details Follow Up: prn, Reason: Progress Notes * DOUGLAS SILVADOB: [birth year] (70 yo F)Acc No.[id number]:07/02/2025 Progress Notes Patient: DOUGLAS UGARTE Provider: Law Mccoy MD :1955 A ge:70 Y S ex:Female Date:07/02/2025 Address:[address] [place], [place] [id number] Pcp:VALENTE CAMARA Subjective: * Chief Complaints: * 1 . Patient presents today for an ENLARGED LIVER. * HPI: i ncontinence: I saw Douglas in consultation today in regard to further evaluation of her fatty liver with associated hepatomegaly, personal history of tubular adenomas. Of the colon, and discussion of colorectal cancer screening. As you know, Douglas is a 70-year-old female who generally feels [...] in 2024, Seasonal allergies, Diverticulitis, IBS, Denies [place],CVA,Lung disease,renal disease, Tubular adenomas with previous colonoscopies [...] iscellaneous: M arital status: . Occupation: Retired preschool assistant. D rug/Alcohol: A DAT-C (Standard) D id you have a drink containing alcohol in the past year? N o,?Points 0 , I nterpretation N egative. * Medications: T aking Aloe Vera , Taking Vitamin D3 50 MCG (2000 UT) Capsule 1 capsule Orally Once a [...] C olon cancer screening - Z12.11 Overall, Douglas appears quit e well. She does not [...] blood sugars remain closely monitored by you. Douglas is quite concerned about her liver. I [...] history of tubular adenomas in the past. Douglas was comfortable with this plan. Thank you again for allow me to participate in oDuglas's care. I will continue to keep you advised of her progress. Plan: * Treatment: Value Reference Range P rothrombin Time 11.8 10.9-12.4 - SEC * I NTERNATIONAL NORM RATIO 1.0 0.9-1.1 - ?LAB: Ferritin (Collection Date & Time - 07/02/2025 10:30 AM)* Value Reference Range F erritin 269 H 10-250 - ng/mL ?LAB: Alpha 1 Anti-trypsin ?LAB: Liver Fibrosis Pnl ?LAB: FOSTER Reflex Titer and Pattern ?LAB: Mitochondrial Antibody ?LAB: Smooth Muscle Antibody ?LAB: Hepatitis B,C Profile (Collection Date & [...] Pending * Provider: Law Mccoy MD Date: 0 07/02/2025 Generated for Ivan gilbert/Jese/Nikkiitting on: 0 07/03/2025 02:02 PM EDT
--- NOTE | 2025-07-03 14:01 | A.OFFVIS_ITS ---
Vital Signs 07/03/25 14:04 Height 5 ft 3 in Weight 163 lb 2.273 oz BMI 28.9 BP 114/78 Blood Pressure Location Rt brachial Position Sitting Pulse 85 Pulse Source Pulse Oximeter Pulse Oximetry (%) 97 Oxygen Delivery Method Room Air Intake Visit Reasons: Type 2 diabetes mellitus without complications Intake Note: NEW Patient presents today to establish treatment for Type 2 Diabetes Mellitus: Last Diabetic eye exam was on: 06/2025, [facility] Last Podiatry exam was on: Patient does not see a [facility] Most recent HbA1c: 6.1%, 07/02/2025 Random Glucose: 104 mg/dL Elevator Mechanic Apprentice Required: No Accompanied by: Self / Same As Patient Allergies ciprofloxacin (CIPROFLOXACIN) Allergy (Intermediate, Verified 07/03/25 14:13) RASH Quinolones Allergy (Mild, Verified 07/03/25 14:13) Unknown Medication List - Last Reconciled 07/03/25 by Marleny Hernandez PA-C aloe vera mg PO blood sugar diagnostic (FreeStyle Lite Strips) Use to check fasting blood sugar every morning. Goal is less than 130 blood-glucose meter (FreeStyle Lite Meter kit) Use to check fasting blood sugar every morning. Goal is less than 130 cholecalciferol (vitamin D3) 50 mcg PO DAILY estradiol 0.01%(0.1mg/gram) vaginal fexofenadine (Rachelle Allergy) 60 mg PO BID PRN hydrocortisone 2.5% topical lancets (FreeStyle Lancets) use to check fasting blood sugar every morning. Goal is less than 130 lidocaine 5% 1 patch topical DAILY losartan 50 mg PO BID omeprazole 20 mg PO DAILY HPI HPI Type 2 diabetes mellitus without complications: Details: Patient is a 70-year-old female who presents today for an initial visit regarding her diabetes. She has a significant past medical history of hypertension, GERD and neuropathy. Endo: She was diagnosed with diabetes earlier this year when her A1c reach 6.6. She decided to work on diet and lifestyle modifications. She has lost 10 lb and her most recent A1c is 6.1. She does monitor blood sugars in the morning and they seem to be 110-125. She does have testing supplies at home. She states that since she has been told she has diabetes she has been working very hard on her diet. She is trying to reduce the amount of carbohydrates and sweets that she eats. She has lost about 10 lb with lifestyle modifications. Family history: she does have cousins and paternal grandmother with t2dm. CV: Blood pressure today in the office is 114/78. She is on losartan 50 mg twice a day. [facility] Medical History Hepatomegaly Lumbar degenerative disc disease Type 2 diabetes mellitus Neuropathy Surgical History History of colonoscopy (~01/21/24) Family History Mother Dementia Afib Arthritis Mental health disorder Father Gastric cancer Social History Housing: House Alcohol intake: current Alcohol intake frequency: does not drink Patient Tobacco Use Status: Never used Tobacco e-Cigarette/Vaping Use: Never Used service: No Current occupational status: retired Cognitive needs: No Hearing needs: No Vision needs: Yes (rx glasses) Physical Exam Vital Signs: Last Vital Signs Pulse 85 07/03/25 14:04 BP 114/78 07/03/25 14:04 Pulse Ox 97 07/03/25 14:04 Oxygen Delivery Method Room Air 07/03/25 14:04 BMI result Body Mass Index 28.9 Const Orientation/consciousness: patient oriented x3 Neck Neck: Yes no lymphadenopathy Thyroid: Thyroid normal Carotids: no bruits Resp Auscultation: clear to auscultation bilaterally Cardio Rate: regular rate Rhythm: regular rhythm Heart sounds: S1 normal heart sound present and S2 normal heart sound present Peripheral pulses: dorsalis pedis present Neuro General: patient oriented x3, gait normal and no focal motor deficits Extrem Other: Monofilament sensation intact bilaterally. Vibratory sensation intact bilaterally. Skin intact. Toenails thickened and yellowish General: Yes normal to inspection Results Reviewed Results Reviewed: Laboratory Tests 07/24/25 08/14/25 10:25 10:30 Creatinine 0.82 Estimated GFR > 60 Random Glucose 110 Hemoglobin A1c % 6.2 H 6.1 H AST 21 ALT 25 Assessment & Plan Assessment & Plan (1) Type 2 diabetes mellitus: Code(s): E11.9 - Type 2 diabetes mellitus without complications Category: Medical Plan: We spent about 70 minutes [id number] time today reviewing diabetes, the pathophysiology of diabetes, the differences between type 1 type 2 diabetes and reviewing prediabetes. We reviewed complications associated with diabetes. We reviewed signs and symptoms of hyper and hypoglycemia that require emergent medical treatment. We reviewed a diabetic diet, how to read nutrition labels She is technically within a prediabetic range and she is doing this all on her own with diet and lifestyle modifications. Congratulated her on her success and her weight loss of 10 lb with these lifestyle modifications. Refilled testing supplies today. She does have an upcoming appointment with our prosthodontist/educator. (2) HTN (hypertension): Code(s): I10 - Essential (primary) hypertension Category: Medical Plan: wnl will continue current treatment plan (3) Onychomycosis: Code(s): B35.1 - Tinea unguium Category: Medical Plan: will try penlac solution Medications: New ciclopirox 8% 1 appl topical BEDTIME 6.6 mL 3RF 12 weeks Changed From blood sugar diagnostic (FreeStyle Lite Strips) Use to check fasting blood sugar every morning. Goal is less than 130 100 ea 0RF E11.9 - Type 2 diabetes mellitus without complications To blood sugar diagnostic (FreeStyle Lite Strips) use to check blood sugars 2 x daily. 100 ea 3RF E11.9 - Type 2 diabetes mellitus without complications Coding Level of Care Code New Pt Level 5 (83095) Diagnoses Type 2 diabetes mellitus E11.9 HTN (hypertension) I10 Onychomycosis B35.1
--- OUTSIDE RECORDS SUMMARY | 2025-07-03 14:02 | XMS_ITS | Clinical Summary ---
Author Organization [facility] [address] [facility] Address [address] [place] [address] Phone Care Team Providers Care Compress Trucker Name Role Phone Best Suh MD Primary Care Provider [phone] Allergies Active Allergy Reactions Criticality Noted Date [...] Care Team Description 06/30/2025 Telephone Gastroenterology - [place] [facility] 175 [facility] [address] [place] [address] Kandi Mcgrath [place] 06/24/2025 2:20 PM EDT Office Visit Gastroenterology - 299 [facility] [address] [facility] [address] [place] [phone] Forest Espinosa MD Right upper quadrant abdominal [...] Info) Description 08/13/2025 12:00 PM EDT Appointment Endoscopy [address] [place] [address] Forest Espinosa MD [address] [facility] [address] [place] [address] Health Maintenance Due Date Last Done Comments [...] quadrant abdominal pain Abnormal liver diagnostic imaging TAM FIBROSURE Routine 06/24/2025 3:09 PM EDT Right upper quadrant abdominal pain Abnormal liver diagnostic imaging US ABDOMEN LIMITED Routine 04/28/2025 2: 32 PM EDT from Last 3 Months Results * TAM fibrotest liver diease (06/24/2025 3:09 PM EDT) [facility] TAM FibroSure See Below 07/02/2025 1:38 PM EDT [facility] Comment: TAM FibroSure(R) Plus SEE REPORT UNDER SEPARATE COVER. REPORT WILL BE SENT TO THE ORDERING LABORATORY VIA PRINTER OR FAX. ADDITIONAL COPIES OF THE ORIGINAL REPORT MAY ALSO BE OBTAINED BY CALLING [facility] at [phone] Blood Venous blood specimen / Unknown Venipuncture / Unknown 06/24/2025 3:09 PM EDT 06/24/2025 3:20 PM EDT us Forest Espinosa MD LAB BLOOD ORDERABLES Edited Result - Final [facility] [address] [place] [address] * CBC auto differential (06/24/2025 3:09 PM EDT) Pathologist [facility] WBC 8.0 4.8 - 10.8 K/mcL LAB HEMETOLOGY METHOD 06/24/2025 3:31 PM EDT [facility] RBC 4.80 3.80 - 4.80 M/mcL LAB HEMETOLOGY METHOD 06/24/2025 3:31 PM EDT [facility] Hemoglobin 13.4 11.5 - 16.0 g/dL LAB HEMETOLOGY METHOD 06/24/2025 3:31 PM EDT [facility] Hematocrit 40.3 35.0 - 47.0 % LAB HEMETOLOGY METHOD 06/24/2025 3:[facility] MCV 84.5 79.0 - 98.0 FL LAB HEMETOLOGY METHOD 06/24/2025 3:31 PM [facility] MCH 28.1 27.0 - 32.0 pcg LAB HEMETOLOGY METHOD 06/24/2025 3:31 PM [facility] MCHC 33.3 32.0 - 37.0 g/dL LAB HEMETOLOGY METHOD 06/24/2025 3:31 PM [facility] RDW 12.6 11.0 - 15.0 % LAB HEMETOLOGY METHOD 06/24/2025 3:31 PM [facility] Platelets 260 130 - 400 K/mcL LAB HEMETOLOGY METHOD 06/24/2025 3:31 PM [facility] MPV 10.0 7.0 - 11.0 FL LAB HEMETOLOGY METHOD 06/24/2025 3:31 PM [facility] NRBC 0.0 <1.0 % LAB HEMETOLOGY METHOD 06/24/2025 3:31 PM [facility] NRBC Absolute 0.00 <0.10 K/mcL LAB HEMETOLOGY METHOD 06/24/2025 3:31 PM EDT [facility] Neutrophils Relative 52.9 % LAB HEMETOLOGY METHOD 06/24/2025 3:31 PM [facility] Lymphocytes Relative 31.3 % LAB HEMETOLOGY METHOD 06/24/2025 3:31 PM [facility] Monocytes Relative 11.1 % LAB HEMETOLOGY METHOD 06/24/2025 3:31 PM EDT [facility] Eosinophils Relative 3.1 % LAB HEMETOLOGY METHOD 06/24/2025 3:31 PM EDT [facility] Basophils Relative 1.3 % LAB HEMETOLOGY METHOD 06/24/2025 3:31 PM EDT [facility] Immature Granulocytes Relative 0.3 % LAB HEMETOLOGY METHOD 06/24/2025 3:31 PM EDT [facility] Neutrophils Absolute 4.21 1.50 - 7.00 K/mcL LAB HEMETOLOGY METHOD 06/24/2025 3:31 PM EDT [facility] Lymphocytes Absolute 2.49 1.00 - 5.00 K/mcL LAB HEMETOLOGY METHOD 06/24/2025 3:31 PM EDT [facility] Monocytes Absolute 0.88 0.20 - 1.00 K/mcL LAB HEMETOLOGY METHOD 06/24/2025 3:31 PM EDT [facility] Eosinophils Absolute 0.25 0.00 - 0.50 K/mcL LAB HEMETOLOGY METHOD 06/24/2025 3:31 PM EDT [facility] Basophils Absolute 0.10 0.00 - 0.20 K/mcL LAB HEMETOLOGY METHOD 06/24/2025 3:31 PM EDT [facility] Immature Granulocytes Absolute 0.02 0.00 - 0.03 K/mcL LAB HEMETOLOGY METHOD 06/24/2025 3:31 PM EDT [facility] Blood Venous blood specimen / Unknown Venipuncture / Unknown 06/24/2025 3:09 PM EDT 06/24/2025 3:20 PM EDT us Forest Espinosa MD LAB BLOOD ORDERABLES Final Result [facility] [address] [place] [address], * Comprehensive metabolic panel (06/24/2025 3:09 PM EDT) Sodium 137 133 - 145 mmol/L LAB CHEMISTRY METHOD 06/24/2025 4:25 PM [facility] Potassium 3.7 3.5 - 5.5 mmol/L LAB CHEMISTRY METHOD 06/24/2025 4:25 PM [facility] Chloride 105 96 - 110 mmol/L LAB CHEMISTRY METHOD 06/24/2025 4:25 PM [facility] CO2 29 21 - 32 mmol/L LAB CHEMISTRY METHOD 06/24/2025 4:25 PM [facility] Anion Gap 3 3 - 11 LAB CHEMISTRY METHOD 06/24/2025 4:25 PM [facility] Glucose 79 70 - 100 mg/dL LAB CHEMISTRY METHOD 06/24/2025 4:25 PM [facility] BUN 21 5 - 25 mg/dL LAB CHEMISTRY METHOD 06/24/2025 4:25 PM [facility] Creatinine 0.92 0.50 - 1.10 mg/dL LAB CHEMISTRY METHOD 06/24/2025 4:25 PM [facility] eGFR 67 >=60 mL/min/1. 73m2 LAB CHEMISTRY METHOD 06/24/2025 4:25 PM [facility] Comment:Calculation based on the Chronic Kidney Disease Epidemiology Collaboration (CKD-EPI) equation refit without adjustment for race. BUN/Creatinine Ratio 22.8 LAB CHEMISTRY METHOD 06/24/2025 4:25 PM [facility] Calcium 9.7 8.5 - 10.5 mg/dL LAB CHEMISTRY METHOD 06/24/2025 4:25 PM [facility] AST (SGOT) 21 10 - 42 unit/L LAB CHEMISTRY METHOD 06/24/2025 4:25 PM [facility] ALT (SGPT) 25 10 - 60 unit/L LAB CHEMISTRY METHOD 06/24/2025 4:25 PM EDT [facility] Alkaline Phosphatase 79 42 - 121 unit/L LAB CHEMISTRY METHOD 06/24/2025 4:25 PM EDT [facility] Total Protein 7.2 6.0 - 8.0 g/dL LAB CHEMISTRY METHOD 06/24/2025 4:25 PM EDT [facility] Albumin 4.2 3.2 - 5.0 g/dL LAB CHEMISTRY METHOD 06/24/2025 4:25 PM EDT [facility] Total Bilirubin 0.6 0.0 - 1.4 mg/dL LAB CHEMISTRY METHOD 06/24/2025 4:25 PM EDT [facility] Blood Venous blood specimen / Unknown Venipuncture / Unknown 06/24/2025 3:09 PM EDT 06/24/2025 3:21 PM EDT us Forest Espinosa MD LAB BLOOD ORDERABLES Final Result [facility] [address] [place] [address], * US Abdomen Limited (04/28/2025 2:32 PM EDT) Anatomical Region Laterality Modality Body Ultrasound us Historical Provider IMDelisa US PROCEDURES Final R esult from Last 3 Months Insurance MEDICARE [facility] Care Teams Compress Trucker Relationship Specialty Start Date End Date Best Suh MD [address] [place] [address] Dr [address] [place] PCP - General 10/31/12
--- OUTSIDE RECORDS SUMMARY | 2025-07-03 14:03 | XMS_ITS | Patient Health Record ---
Author Organization [facility] [place] [place] Address [address] [facility] [place] [address] Care Team Providers Care Woods Manager Name Role Phone Best Suh MD Primary Care Provider Unavaila Luiz Diaz Unavailable [phone] Allergies Allergen (clinical drug ingredient) Drug/Non Drug [...] 90 Active Ciclopirox 0.77 % 1 application [place] ally to affected toenails Twice a day; [...] Treatment Pending Test Test Name Order Date 33790 I&D ABSCESS- SIMPLE,SINGLE 023 Insurance Providers Payer Name Payer Address Payer Phone Subscriber Number Group Number Insured Name Patient Relationship to Insured Coverage Start Date Coverage End Date Medicare National Govt Sv[employer] Inc [address] [place] [address] [id number] Olman Hurst i Self - patient is the insured [facility] [address] [place] [address] [id number] Olman Hurst i Self - patient is the insured Medical (General) History Medical History History ICD Code Arthritis Back,Hip,and Knee pain Cataracts Diverticulosis Neuropathy Headaches/Migraines Osteoporosis Poor circulation chronic sinusitis Surgical History Surgery Date(Month/Year) cholecystectomy 1990
[2025-07-03 14:04] VITALS: BP 114/78; PULSE 85; O2SAT 97; BMI 28.9
[2025-07-03 14:13] LABS: Glucose, Whole Blood 104 mg/dL (60-115)
== END 2025-07-06 09:27 | disposition home or self-care (01) ==
LOC: HO.ENCR 14:00
PROVIDERS: PCP Internal Medicine; Visit Provider Physician Assistant
DX: E11.9 Type 2 diabetes mellitus without complications (principal); I10 Essential (primary) hypertension; B35.1 Tinea unguium

== ENCOUNTER → 2025-07-03 13:59 | Outpatient (BNVA) | payer MEDICARE, OTHER, SELFPAY | PROVIDERS: PCP Internal Medicine; Visit Provider Physician Assistant | DX: E11.9 Type 2 diabetes mellitus without complications (principal); I10 Essential (primary) hypertension; B35.1 Tinea unguium | CPT/HCPCS: 82947; 99202 ==

== ENCOUNTER 2025-07-10 11:23 | Outpatient (AMB) | payer MEDICARE, OTHER, SELFPAY ==
--- OUTSIDE RECORDS SUMMARY | 2025-07-02 05:00 | XMS_ITS ---
Author Organization [facility] Address [address] [place] [address] Care Team Providers Care Electronic Engraver Name Role Phone JAX VALENTE Primary Care Provider Alvarado Barrett [phone] Allergies Allergen (clinical drug ingredient) Drug/Non Drug Allergy documented on EMR Reaction Allergy Type Onset Date Status ciprofloxacin Cipro Unknown Drug Allergy Act ericka Results Component Value Reference Range Notes Prothrombin Time INR (Not ye t reviewed by provider) Interpretation: Performing Lab:[facility], [address] [place] [phone] Notes/Report: Prothrombin Time 11.8 10.9-12.4 SEC INTERNATIONAL NORM RATIO 1.0 0.9-1.1 INTERNATIONAL NORMALIZED RATIO (INR) REFERENCE RANGES Reference Range For patients not on anticoagulant therapy: 0.9 - 1.1 INR ranges for oral anticoagulant therapy: For prevention and treatment of venous thrombosis and pulmonary embolism: 2.0 - 3.0 For acute myocardial infarction with aspirin therapy: 2.0 - 3.0 For acute myocardial infarction without aspirin therapy: 3.0 - 4.0 For patients with mechanical prosthetic heart valves: 2.5 - 3.5 Ferritin (Not yet reviewed b y provider) Interpretation: Performing Lab:[facility], [address] [place] [phone] Notes/Report: Ferritin 269 10-250 ng/mL Alpha 1 Anti-trypsin (Not ye t reviewed by provider) Interpretation: Performing Lab:[facility], [address] [place] [phone] Notes/Report: Alpha 1 Anti-trypsin 163 83-199 mg/dL THIS TEST WAS PERFORMED AT: [facility] [address] [place] [phone] ALESSANDRO MALONE MD Liver Fibrosis Pnl (Not yet reviewed by provider) Interpretation: Performing Lab:[facility], [address] [place] [phone] Notes/Report: Liver Fibrosis Score 0.21 Liver Fibrosis Stage F0-F1 Liver Fibrosis Interpretation SEE NOTE no fibrosis Fibro Test Score (f) Metavir Score f>=0 and f<=0.21 : F0 (no fibrosis) f>0.21 and f<=0.27 : F0-F1 (no fibrosis) f>0.27 and f<=0.31 : F1 (minimal fibrosis) f>0.31 and f<=0.48 : F1-F2 (minimal fibrosis) f>0.48 and f<=0.58 : F2 (moderate fibrosis) f>0.58 and f<=0.72 : F3 (advanced fibrosis) f>0.72 and f<=0.74 : F3-F4 (advanced fibrosis) f>0.74 and f<=1.00 : F4 (severe fibrosis) Nec Inflam Act Score 0.05 Nec Inflam Act Grade A0 Nec Inflam Act Interpretation SEE NOTE no activity ActiTest Score (a) Metavir Score a>=0 and a<=0.17 : A0 (no activity) a>0.17 and a<=0.29 : A0-A1 (no activity) a>0.29 and a<=0.36 : A1 (minimal activity) a>0.36 and a<=0.52 : A1-A2 (minimal activity) a>0.52 and a<=0.60 : A2 (significant activity) a>0.60 and a<=0.62 : A2-A3 (significant activity) a>0.62 and a<=1.00 : A3 (severe activity) MZT-Niunw-5-Macroglobulin 176 106-279 mg/dL FIB-Haptoglobin 91 43-212 mg/dL FIB-Apolipoprotein A1 139 101-198 mg/dL FIB-Total Bilirubin 0.3 0.2-1.2 mg/dL FIB-GGT 28 3-65 U/L FIB-ALT 17 6-29 U/L Reference ID [id number] Footnote SEE NOTE The reliability of results is dependent on compliance with the preanalytical and analytical conditions recommended by [employer]. The tests have to be deferred for: acute hemolysis, acute hepatitis, acute inflammation, extra hepatic cholestasis. The advice of a specialist should be sought for interpretation in chronic hemolysis and Gilbert's syndrome. The test interpretation is not validated in liver transplant patients. Isolated extreme values of one of the components should lead to caution in interpreting the results. In case of discordance between a biopsy result and a test, it is recommended to seek the advice of a specialist. The causes of these discordances could be due to a flaw of the test or to a flaw in the biopsy: i.e. a liver biopsy has a 33% variability rate for one fibrosis stage. FibroTest is interpretable for chronic hepatitis B and C, alcoholic and non alcoholic steatosis. ActiTest is interpretable for chronic hepatitis B and C. The performance characteristics have been determined by [facility]. It has not been cleared or approved by the U.S. Food and Drug Administration. Performance characteristics refer to the analytical performance of the test. [employer], the associated logo, [employer] and all associated [employer] morales are the registered trademarks of [employer]. All third libertarian morales - (R) and (TM) - are the property of their respective owners. (C) [id number] [employer]. All rights reserved. THIS TEST WAS PERFORMED AT: [facility] [place] [address] [place] [address] ADELA BORJAS MD,PHD,PETER FOSTER Reflex Titer and Pattern (Not yet reviewed by provider) Interpretation: Performing Lab:[facility], [address] [place] [phone] Notes/Report: Anti Nuclear Antibody Screen NEGATIVE NEGATIVE FOSTER IFA is a first line screen for detecting the presence of up to approximately 150 autoantibodies in various autoimmune diseases. A negative FOSTER IFA result suggests an FOSTER-associated autoimmune disease is not present at this time, but is not definitive. If there is high clinical suspicion for Sjogren's syndrome, testing for anti-SS-A/Ro antibody should be considered. Anti-Mima-1 antibody should be considered for clinically suspected inflammatory myopathies. AC-0: Negative International Consensus on FOSTER Patterns (https://doi.org/10.1515/cclm -6936-3509) For additional information, please refer to http://education.[employer]/faq/KHH893 (This link is being provided for informational/ educational purposes only.) THIS TEST WAS PERFORMED AT: [facility] [address] [place] [phone] ALESSANDRO MALONE MD Anti Nuclear Antibody Titer TNP Anti Nuclear Antibody Pattern TNP FOSTER Titer 2 TNP FOSTER Pattern 2 TNP FOSTER Titer 3 TNP FOSTER Pattern 3 TNP Mitochondrial Antibody (Not yet reviewed by provider) Interpretation: Performing Lab:[address] [phone] Notes/Report: Mitochondrial Antibodies NEGATIVE NEGATIVE THIS TEST WAS PERFORMED AT: [facility] [address] [place] [phone] ALESSANDRO MALNOE MD Mitochondrial Ab Titer TNP Smooth Muscle Antibody (Not yet reviewed by provider) Interpretation: Performing Lab:[address] [phone] Notes/Report: Smooth Muscle Antibody <20 <20 U Reference Range: <20 U: Negative >or=20 U: Positive Antibodies recognizing actin are the main component of smooth muscle antibodies associated with auto- immune liver disease. Actin antibodies are found in approximately 75% of patients with autoimmune hepatitis (AIH) type 1, approximately 65% of patients with autoimmune cholangitis, approximately 30% of patients with primary biliary cirrhosis and approximately 2% of healthy controls. High values are closely correlated with AIH type 1. THIS TEST WAS PERFORMED AT: [facility]/[address] NATHALIE HERR MD,PHD Hepatitis B,C Profile Reviewed date:07/05/2025 10:32:28 PM Interpretation: Performing Lab:[address] [phone] Notes/Report: Hepatitis B Surface Antibody NONREACTIVE Nonreactive Nonreactive: < 8.00 mIU/mL Hepatitis B Core Antibody Nonreactive Nonreactive Hepatitis C Antibody Nonreactive Nonreactive Antibodies to HCV not detected; does not exclude early acute HCV infection. Hepatitis B Surface Antigen Negative Negative REASON FOR VISIT Patient presents today for an ENLARGED LIVER Medications Medication SIG (Take, Route, Frequency, Duration) Notes Start Date End Date Status Omeprazole 20 MG 1 capsule 1/2 to 1 h our before morning meal Orally Once a day Active Vitamin D3 50 MCG (1999) 1 capsule Orally Once a day Active Losartan Potassium 50 MG 1 tablet Orally Once a day Active Aloe Vera Active Social History Tobacco Use: Social History Observation Description Date Details (start date - stop date) Never Smoker NA - NA Tobacco Control (Standard) Question Answer Notes Tobacco use: Nonsmoker AUDIT-C (Standard) Question Answer Notes Did you have a drink containing alcohol in the p ast year? No Points 0 Interpretation Negative Problems Problem Type SNOMED Code ICD Code Onset Dates Problem Status W/U Status Risk Notes Problem Fatty liver (732661394) Fatty liver (K76.0) Active confirmed Problem History of adenomatous polyp of colon (358431604) History of adenomatous polyp of colon (Z86.0101) Active confirmed Problem Colon cancer screening (419205629) Colon cancer screening (Z12.11) Active confirmed Vital Signs Blood pressure systolic 111 mm Hg 07/02/20 25 Blood pressure diastolic 77 mm Hg 025 Height 63 in 07/02/2025 Weight 163 lbs 07/02/2025 BMI 28.87 kg/m2 07/02/2025 Encounters Encounter Location Date Provider Diagnosis [facility] [address] [facility] [address] [place] [address] 07/02/2025 Alvarado Mccoy Fatty liver K76.0 ; History of adenomatous polyp of colon Z86.0101 and Colon cancer screening Z12.11 Assessments Encounter Date Diagnosis (ICD Code) Assessment Notes Treatment Notes Treatment Clinical Notes Section Notes 07/02/2025 Fatty liver (ICD-10 - K76.0) For the fatty liver: Watch diet, lose weight, monitor and treat high blood sugars, Overall, Olman appears quite well. She does not describe any symptoms nor show any signs of underlying liver disease. We did review that while she may have some component of fatty liver it is certainly not causing any problems in regard to her liver based on her physical exam, the imaging studies, and her laboratories. She seems to have very good liver function. We did review potential risk factors of fatty liver including that of being somewhat overweight, elevated blood sugars, and dietary indiscretion. At this point, given her excellent clinical appearance and normal LFTs in the past, I do not think she requires anything such as a liver biopsy or consideration for treatment of the fatty liver. We did review that she needs to watch her diet carefully, try to lose some weight, and to be sure her blood sugars remain closely monitored by you. Olman is quite concerned about her liver. I advised her that I we will check the below laboratories to rule out any other causes of liver disease such as iron overload that might cause some component of hepatomegaly. I do not think she needs any further imaging studies given failure ultrasound of the reports from earlier this year. Assuming the liver workup is negative and she is otherwise feeling well, I would not need to see her in follow-up in regard to the underlying component of fatty liver. However, I would recommend she have a liver profile every 6 months or so and be sure to have her blood sugars monitored as well. We did review that she will be due for a follow-up colonoscopy in 2026 given her history of tubular adenomas in the past. Olman was comfortable with this plan. Thank you again for allow me to participate in Olman's care. I will continue to keep you advised of her progress. 07/02/2025 History of adenomatous polyp of colon (ICD-10 - Z86.0101) Overall, Olman appears quite well. She does not describe any symptoms nor show any signs of underlying liver disease. We did review that while she may have some component of fatty liver it is certainly not causing any problems in regard to her liver based on her physical exam, the imaging studies, and her laboratories. She seems to have very good liver function. We did review potential risk factors of fatty liver including that of being somewhat overweight, elevated blood sugars, and dietary indiscretion. At this point, given her excellent clinical appearance and normal LFTs in the past, I do not think she requires anything such as a liver biopsy or consideration for treatment of the fatty liver. We did review that she needs to watch her diet carefully, try to lose some weight, and to be sure her blood sugars remain closely monitored by you. Olman is quite concerned about her liver. I advised her that I we will check the below laboratories to rule out any other causes of liver disease such as iron overload that might cause some component of hepatomegaly. I do not think she needs any further imaging studies given failure ultrasound of the reports from earlier this year. Assuming the liver workup is negative and she is otherwise feeling well, I would not need to see her in follow-up in regard to the underlying component of fatty liver. However, I would recommend she have a liver profile every 6 months or so and be sure to have her blood sugars monitored as well. We did review that she will be due for a follow-up colonoscopy in 2026 given her history of tubular adenomas in the past. Olman was comfortable with this plan. Thank you again for allow me to participate in Olman's care. I will continue to keep you advised of her progress. 07/02/2025 Colon cancer screening (ICD-10 - Z12.11) Repeat colonoscopy in 01/2027 Overall, Olman appears quite well. She does not describe any symptoms nor show any signs of underlying liver disease. We did review that while she may have some component of fatty liver it is certainly not causing any problems in regard to her liver based on her physical exam, the imaging studies, and her laboratories. She seems to have very good liver function. We did review potential risk factors of fatty liver including that of being somewhat overweight, elevated blood sugars, and dietary indiscretion. At this point, given her excellent clinical appearance and normal LFTs in the past, I do not think she requires anything such as a liver biopsy or consideration for treatment of the fatty liver. We did review that she needs to watch her diet carefully, try to lose some weight, and to be sure her blood sugars remain closely monitored by you. Olman is quite concerned about her liver. I advised her that I we will check the below laboratories to rule out any other causes of liver disease such as iron overload that might cause some component of hepatomegaly. I do not think she needs any further imaging studies given failure ultrasound of the reports from earlier this year. Assuming the liver workup is negative and she is otherwise feeling well, I would not need to see her in follow-up in regard to the underlying component of fatty liver. However, I would recommend she have a liver profile every 6 months or so and be sure to have her blood sugars monitored as well. We did review that she will be due for a follow-up colonoscopy in 2026 given her history of tubular adenomas in the past. Olman was comfortable with this plan. Thank you again for allow me to participate in Olman's care. I will continue to keep you advised of her progress. Plan Of Treatment Treatment Notes Assessment Notes Fatty liver For the fatty liver: Watch diet, lose weight, monitor and treat high blood sugars, Colon cancer screening Repeat colonoscop y in 01/2027 Pending Test Test Name Order Date LIVER PROFILE 07/02/2025 IRON + IBC (FE) 07/02/2025 CBC w DIFF 07/02/2025 Prothrombin Time INR 07/02/2025 Ferritin 07/02/2025 Alpha 1 Anti-trypsin 07/02/2025 Liver Fibrosis Pnl 07/02/2025 FOSTER Reflex Titer and Pattern 07/02/2025 Mitochondrial Antibody 07/02/2025 Smooth Muscle Antibody 07/02/2025 Next Appt Details Follow Up: prn, Reason: Progress Notes * OLMAN SILVADOB: [birth year] (70 yo F)Acc No.[id number]:07/02/2025 Progress Notes Patient: OLMAN UGARTE Provider: Law Mccoy MD :1955 A ge:70 Y S ex:Female Date:07/02/2025 Address:[facility], [facility] Pcp:VALENTE CAMARA Subjective: * Chief Complaints: * 1 . Patient presents today for an ENLARGED LIVER. * HPI: i ncontinence: I saw Olman in consultation today in regard to further evaluation of her fatty liver with associated hepatomegaly, personal history of tubular adenomas. Of the colon, and discussion of colorectal cancer screening. As you know, Olman is a 70-year-old female who generally feels well. She underwent an ultrasound in April 2025 due to some right upper quadrant discomfort. She has already had a cholecystectomy and the ultrasound described the common bile duct as being 7 mm. The ultrasound described some fatty liver as well as some hepatomegaly. She did have a CT scan of her abdomen in November describing a normal-appearing liver although with changes of a fatty liver. The CT scan did not show any hepatomegaly, splenomegaly, or laboratories ascites, She denies a known history of liver disease in herself or family members. She does not use any significant amounts of alcohol. Laboratories over the past several months revealed normal chemistries and renal function, and a normal liver profile as well. She did have minimal elevations of her hemoglobin A1c with a level of 6.2 in May and 6.6 in January. She denies any increasing abdominal girth, edema, pruritus.. * Medical History: N IDDM, Hypertension, GERD, Neuropathy, Urinary incontenence- stress induced, Degenerative disease lumbosacral spine, Fatty liver but normal LFT's and imaging in 2024, Seasonal allergies, Diverticulitis, IBS, Denies VA,CVA,Lung disease,renal disease, Tubular adenomas with previous colonoscopies by Dr. Mora. Her most recent exam was in January 2024 with a removal of a small tubular adenoma. * Surgical History: c holecystectomy . * Family History: F ather: , gastric cancer, diagnosed with HTN (hypertension). M other: , dementia/Afib, diagnosed with Heart disease, HTN (hypertension), Colon polyps. * Social History: T obacco Use: T obacco Control (Standard) T obacco use: N onsmoker. M iscellaneous: M arital status: . Occupation: Retired middle school tutor. D rug/Alcohol: A DAT-C (Standard) D id you have a drink containing alcohol in the past year? N o,?Points 0 , I nterpretation N egative. * Medications: T aking Aloe Vera , Taking Vitamin D3 50 MCG (1999 [place]) Capsule 1 capsule Orally Once a day , Taking Omeprazole 20 MG Capsule Delayed Release 1 capsule 1/2 to 1 hour before morning meal Orally Once a day , Taking Losartan Potassium 50 MG Tablet 1 tablet Orally Once a day , Medication List reviewed and reconciled with the patient * Allergies: C ipro. Objective: * Vitals: W t:163lbs, Ht:63in, BMI: 28.87 Index, BP:111/77mm Hg, Ht-cm: 160.02, Wt-k.94. Assessment: * Assessment: 1. F atty liver - K76.0 (Primary) 2 . H istory of adenomatous polyp of colon - Z86.0101 3 . C olon cancer screening - Z12.11 Overall, Olman appears quit e well. She does not describe any symptoms nor show any signs of underlying liver disease. We did review that while she may have some component of fatty liver it is certainly not causing any problems in regard to her liver based on her physical exam, the imaging studies, and her laboratories. She seems to have very good liver function. We did review potential risk factors of fatty liver including that of being somewhat overweight, elevated blood sugars, and dietary indiscretion. At this point, given her excellent clinical appearance and normal LFTs in the past, I do not think she requires anything such as a liver biopsy or consideration for treatment of the fatty liver. We did review that she needs to watch her diet carefully, try to lose some weight, and to be sure her blood sugars remain closely monitored by you. Olman is quite concerned about her liver. I advised her that I we will check the below laboratories to rule out any other causes of liver disease such as iron overload that might cause some component of hepatomegaly. I do not think she needs any further imaging studies given failure ultrasound of the reports from earlier this year. Assuming the liver workup is negative and she is otherwise feeling well, I would not need to see her in follow-up in regard to the underlying component of fatty liver. However, I would recommend she have a liver profile every 6 months or so and be sure to have her blood sugars monitored as well. We did review that she will be due for a follow-up colonoscopy in 2026 given her history of tubular adenomas in the past. Olman was comfortable with this plan. Thank you again for allow me to participate in Olman's care. I will continue to keep you advised of her progress. Plan: * Treatment: Value Reference Range P rothrombin Time 11.8 10.9-12.4 - SEC * I NTERNATIONAL NORM RATIO 1.0 0.9-1.1 - ?LAB: Ferritin (Collection Date & Time - 07/02/2025 10:30 AM)* Value Reference Range F erritin 269 H 10-250 - ng/mL ?LAB: Alpha 1 Anti-trypsin (Collection Date & Time - 07/02/2025 10:30 AM)* Value Reference Range A lpha 1 Anti-trypsin 163 83-199 - mg/dL ?LAB: Liver Fibrosis Pnl (Collection Date & Time - 07/02/2025 10:30 AM)* Value Reference Range L iver Fibrosis Score 0.21 - * L iver Fibrosis Stage F0-F1 - * L iver Fibrosis Interpretation SEE NOTE - * N ec Inflam Act Score 0.05 - * N ec Inflam Act Grade A0 - * N ec Inflam Act Interpretation SEE NOTE - * F HD-Umxsp-4-Macroglobulin 176 106-279 - mg/dL * F IB-Haptoglobin 91 43-212 - mg/dL * F IB-Apolipoprotein A1 139 101-198 - mg/dL * F IB-Total Bilirubin 0.3 0.2-1.2 - mg/dL * F IB-GGT 28 3-65 - U/L * F IB-ALT 17 6-29 - U/L * R eference ID [id number] - * F ootnote SEE NOTE - ?LAB: FOSTER Reflex Titer and Pattern (Collection Date & Time - 07/02/2025 10:30 AM)* Value Reference Range A nti Nuclear Antibody Screen NEGATIVE NEGATIVE - * A nti Nuclear Antibody Titer TNP - * A nti Nuclear Antibody Pattern TNP - * A NA Titer 2 TNP - * A NA Pattern 2 TNP - * A NA Titer 3 TNP - * A NA Pattern 3 TNP - ?LAB: Mitochondrial Antibody (Collection Date & Time - 07/02/2025 10:30 AM) * Value Reference Range M itochondrial Antibodies NEGATIVE NEGATIVE - * M itochondrial Ab Titer TNP - ?LAB: Smooth Muscle Antibody (Collection Date & Time - 07/02/2025 10:30 AM) * Value Reference Range S mooth Muscle Antibody <20 <20 - U ?LAB: Hepatitis B,C Profile (Collection Date & Time - 07/02/2025 10:30 AM)* Value Reference Range H epatitis B Surface Antibody NONREACTIVE Nonreactive - * H epatitis B Core Antibody Nonreactive Nonreactive - * Hepatitis C Antibody Nonreactive Nonreactive - * H epatitis B Surface Antigen Negative Negative - Notes: For the fatty liver: Watch diet, lose weight, monitor and treat high blood sugars, ? 2.?Colon cancer screening? Notes: Repeat colonoscopy in 01/2027?? * Preventive Medicine: Urinary Incontinence: U rinary Incontinence A ssessment: P resent, P eddie of care documented: Y es, T ype of plan of care: L ifestyle interventions. Screenings: F all Risk Screening F all Risk Assessment: N o falls in the past year, S creening: N o falls in the past year, A ssessment: N ot performed, no reason specified, P eddie of Care: N ot documented, no reason specified. * Follow Up: p rn * * The named appointment provid er may or may not be the originator of this progress note, and it is not deemed complete until electronically signed by the appointment provider. Sign off status: Pending * Provider: Law Mccoy MD Date: 07/02/2025 Generated for Ivan gilbert/Jese/Nikkiitting on: 07/10/2025 11:27 AM EDT
--- NOTE | 2025-07-10 11:26 | MHC.PC.OV ---
Vital Signs 07/10/25 11:32 Height 5 ft 3 in Weight 73.936 kg BMI 28.9 BP 120/82 Blood Pressure Location Lt brachial Position Sitting Pulse 88 Pulse Source Pulse Oximeter Temp 98.9 F Temp Source Temporal Artery Scan Pulse Oximetry (%) 99 Oxygen Delivery Method Room Air Intake Visit Reasons: DM Textile Machine Mechanic Required: No Accompanied by: Self / Same As Patient Allergies ciprofloxacin (CIPROFLOXACIN) Allergy (Intermediate, Verified 07/10/25 11:26) RASH Tobacco use date assessed: 03/18/25 Dental Screening Dental Screen Date: 03/18/25 HPI HPI Comments History of Present Illness Details 70-year-old female with history of hypertension, GERD, type 2 diabetes, lumbar degenerative disc disease, neuropathy presenting to the office today for routine follow-up Type 2 diabetes-hemoglobin A1c improved to 6.2%. Was seen by endocrinology for diabetic teaching. Has been closely watching her intake of sugar and carbohydrates. Right upper quadrant pain-has been seen by Gastroenterology. Reviewed labs which are within normal limits Hypertension-blood pressure 120/82. Compliant with losartan 50 mg b.i.d. GERD-controlled with omeprazole Neuropathy-unclear etiology. Diabetes is well-controlled. Longstanding. Describes a burning in the bilateral feet, worse at night Dysuria-possibly interstitial cystitis, has upcoming appointment with Gyne Onc in September Concerns: Reports cramping in the left calf as well as prominent veins in the popliteal fossa Health maintenance: Last colonoscopy 01/2024, due 01/2029 ROS: General: No fevers, malaise, unintentional weight loss HEENT: No blurred vision, diplopia. No sore throat, nasal congestion, rhinorrhea, sinus pain, ear pain Cardiovascular: No chest pain, palpitations, or leg edema Respiratory: No shortness of breath, wheezing, cough GI: See HPI : See HPI MSK: No myalgia, back pain Neuro: No headaches, weakness, paresthesias. see hpi Skin: No rashes or lesions EXAM: Constitutional - Awake and Alert, No apparent distress Eyes - PERRL Cardiovascular - S1S2, RRR, No edema Respiratory - Normal lung expansion, Normal respiratory effort, No respiratory distress, CTA bilaterally Extremities - no calf tenderness bilaterally, no swelling. Prominent varicosities of the lateral left lower leg and popliteal fossa Skin - Warm/Dry Neurological - Alert & oriented x3 Psychological - Appropriate affect [facility] Medical History Hepatomegaly Lumbar degenerative disc disease Type 2 diabetes mellitus Neuropathy Surgical History History of colonoscopy (~01/21/24) Family History Mother Dementia Afib Arthritis Mental health disorder Father Gastric cancer Social History Housing: House Alcohol intake: current Alcohol intake frequency: does not drink Patient Tobacco Use Status: Never used Tobacco e-Cigarette/Vaping Use: Never Used service: No Current occupational status: retired Cognitive needs: No Hearing needs: No Vision needs: Yes (rx glasses) Questionnaire Thrive Questionnaire Date Thrive assessed: 03/18/25 AUDIT C Alcohol Use Questionnaire (AUDIT-C) 1. How often do you have a drink containing alcohol?: Never Total Score: 0 JEFFERY-7 AMB Questionnaire JEFFERY-7 Date JEFFERY - 7 assessed: 03/18/25 Source: Developed by Drs. Alvarado Pratt, Maria Esther Saucedo, Patricio Cherry and colleagues, with an educational silvia from [employer]. Physical exam (Primary Care) Vital Signs: Last Vital Signs Temp 98.9 F 07/10/25 11:32 Pulse 88 07/10/25 11:32 BP 120/82 07/10/25 11:32 Pulse Ox 99 07/10/25 11:32 Oxygen Delivery Method Room Air 07/10/25 11:32 BMI result Body Mass Index 28.9 Tobacco/Smoking Status: Tobacco use Status Tobacco use date assessed 03/18/25 07/10/25 11:27 Patient Tobacco Use Status Never used Tobacco 07/10/25 11:27 e-Cigarette/Vaping Use Never Used 07/10/25 11:27 Thrive Assessment: Date of Thrive Assessment Date Thrive assessed 03/18/25 07/10/25 11:27 Coding Level of Care Code Est Pt Level 4 (59042) Complex EM visit Add On G2211 Diagnoses Type 2 diabetes mellitus E11.9 HTN (hypertension) I10 Neuropathy G62.9 Varicose vein of leg I83.90 Assessment & Plan Assessment & Plan (1) Type 2 diabetes mellitus: Code(s): E11.9 - Type 2 diabetes mellitus without complications Category: Medical Plan: Controlled. Continue diabetic diet. Can continue monitoring glucose levels fasting. Reviewed note from endocrinology. Follow-up nutrition (2) HTN (hypertension): Code(s): I10 - Essential (primary) hypertension Category: Medical Plan: Controlled. Continue losartan 50 mg b.i.d. (3) Neuropathy: Code(s): G62.9 - Polyneuropathy, unspecified Category: Medical Plan: Recommend lidocaine cream on the feet at bedtime with soft socks (4) Varicose vein of leg: Code(s): I83.90 - Asymptomatic varicose veins of unspecified lower extremity Category: Medical Plan: Referred to vascular surgery Plan Follow-up in 4 months, labs to be completed following visit today as well as prior to next visit Orders: Orders Basic Metabolic Panel Today R25.2 - Cramp and spasm, R30.0 - Dysuria Basic Metabolic Panel 4 Months E11.9 - Type 2 diabetes mellitus without complications, G62.9 - Polyneuropathy, unspecified, I10 - Essential (primary) hypertension, R16.0 - Hepatomegaly, not elsewhere classified Hemoglobin A1c 4 Months E11.9 - Type 2 diabetes mellitus without complications, G62.9 - Polyneuropathy, unspecified, I10 - Essential (primary) hypertension, R16.0 - Hepatomegaly, not elsewhere classified Complete Blood Count Auto Diff 4 Months E11.9 - Type 2 diabetes mellitus without complications, G62.9 - Polyneuropathy, unspecified, I10 - Essential (primary) hypertension, R16.0 - Hepatomegaly, not elsewhere classified Lipid Panel 4 Months E11.9 - Type 2 diabetes mellitus without complications, G62.9 - Polyneuropathy, unspecified, I10 - Essential (primary) hypertension, R16.0 - Hepatomegaly, not elsewhere classified UA CC w/rflx Micro + Cult Today R25.2 - Cramp and spasm, R30.0 - Dysuria Magnesium Today R25.2 - Cramp and spasm, R30.0 - Dysuria Liver Panel 4 Months E11.9 - Type 2 diabetes mellitus without complications, G62.9 - Polyneuropathy, unspecified, I10 - Essential (primary) hypertension, R16.0 - Hepatomegaly, not elsewhere classified Referrals Podiatry Referral R25.2 - Cramp and spasm, R30.0 - Dysuria Vascular Surgery Referral I83.90 - Asymptomatic varicose veins of unspecified lower extremity, R29.898 - Other symptoms and signs involving the musculoskeletal system Medications: Changed From blood sugar diagnostic (FreeStyle Lite Strips) use to check blood sugars 2 x daily. 100 ea 3RF E11.9 - Type 2 diabetes mellitus without complications To blood sugar diagnostic (FreeStyle Lite Strips) use to check blood sugars once daily 100 ea 1RF E11.9 - Type 2 diabetes mellitus without complications Patient Instructions: Follow up with vascular surgery for varicose veins, leg heaviness Neuropathy, trial lidocaine cream Urine burning- ua ordered. Specialist as scheduled CHeck sugars once daily Contact gastroenterology
--- OUTSIDE RECORDS SUMMARY | 2025-07-10 11:27 | XMS_ITS | Patient Health Record ---
Author Organization [facility] [place] Address [address] [facility] [place] [address] Care Team Providers Care Jewel Inspector Name Role Phone Best Suh MD Primary Care Provider Unavaila Luiz Diaz Unavailable [phone] Allergies Allergen (clinical drug ingredient) Drug/Non Drug [...] 90 Active Ciclopirox 0.77 % 1 application Chlorinator Operator ally to affected toenails Twice a [...] Treatment Pending Test Test Name Order Date 14453 I&D ABSCESS- SIMPLE,SINGLE 023 Insurance Providers Payer Name Payer Address Payer Phone Subscriber Number Group Number Insured Name Patient Relationship to Insured Coverage Start Date Coverage End Date Medicare National Govt Svcs Inc [address] [place] [address] [phone] [id number] Olman Hurst i Self - patient is the insured [facility] [address] [place] [address] [id number] Olman Hurst i Self - patient is the insured Medical (General) History Medical History History ICD Code Arthritis Back,Hip,and Knee pain Cataracts Diverticulosis Neuropathy Headaches/Migraines Osteoporosis Poor circulation chronic sinusitis Surgical History Surgery Date(Month/Year) cholecystectomy 1990
--- OUTSIDE RECORDS SUMMARY | 2025-07-10 11:27 | XMS_ITS | Clinical Summary ---
Author Organization [facility] 299 [facility] Address [address] [place] [address] Phone Care Team Providers Care Refinery Operator Gas Plant Name Role Phone Best Suh MD Primary Care Provider [phone] Allergies Active Allergy Reactions Criticality Noted Date [...] Care Team Description 06/30/2025 Telephone Gastroenterology - [place] [address] [facility] 175 [facility] [address] [place] [address] Kandi Mcgrath [place] 06/24/2025 2:20 PM EDT Office Visit Gastroenterology - [address] [facility] 299 [facility] [address] [place] [phone] Forest Espinosa MD Right upper quadrant abdominal [...] 08/13/2025 12:00 PM EDT Appointment Endoscopy [address] [place] [address] Forest Espinosa MD [address] [facility] [address] [place] [address] Health Maintenance Due Date Last Done Comments [...] fibrotest liver diease (06/24/2025 3:09 PM EDT) [facility] TAM FibroSure See Below 07/02/2025 1:38 PM EDT [facility] Comment: TAM FibroSure(R) Plus SEE REPORT UNDER SEPARATE COVER. REPORT WILL BE SENT TO THE ORDERING LABORATORY VIA PRINTER OR FAX. ADDITIONAL COPIES OF THE ORIGINAL REPORT MAY ALSO BE OBTAINED BY CALLING [facility] at [phone] Blood Venous blood specimen / Unknown Venipuncture / Unknown 06/24/2025 3:09 PM EDT 06/24/2025 3:20 PM EDT us Forest Espinosa MD LAB BLOOD ORDERABLES Edited Result - Final [facility] [address] [place] [address] * CBC auto differential (06/24/2025 3:09 PM EDT) Pathologist [facility] WBC 8.0 4.8 - 10.8 K/mcL LAB HEMETOLOGY METHOD 06/24/2025 3:31 PM EDT [facility] RBC 4.80 3.80 - 4.80 M/mcL LAB HEMETOLOGY METHOD 06/24/2025 3:31 PM EDT [facility] Hemoglobin 13.4 11.5 - 16.0 g/dL LAB HEMETOLOGY METHOD 06/24/2025 3:31 PM EDT [facility] Hematocrit 40.3 35.0 - 47.0 % LAB HEMETOLOGY METHOD [facility]/24[facility]2025 3[facility] MCV 84.5 79.0 - 98.0 FL LAB HEMETOLOGY METHOD 06/24/2025 3:31 [facility] MCH 28.1 27.0 - 32.0 pcg LAB HEMETOLOGY METHOD 06/24/2025 3:[address] [facility] MCHC 33.3 32.0 - 37.0 g/dL LAB HEMETOLOGY METHOD 06/24/2025 3:[address] [facility] RDW 12.6 11.0 - 15.0 % LAB HEMETOLOGY METHOD 06/24/2025 3:31 [facility] Platelets 260 130 - 400 K/mcL LAB HEMETOLOGY METHOD 06/24/2025 3:31 [facility] MPV 10.0 7.0 - 11.0 FL LAB HEMETOLOGY METHOD 06/24/2025 3:31 [facility] NRBC 0.0 <1.0 % LAB HEMETOLOGY METHOD 06/24/2025 3:31 [facility] NRBC Absolute 0.00 <0.10 K/mcL LAB HEMETOLOGY METHOD 06/24/2025 3:31 PM EDT [facility] Neutrophils Relative 52.9 % LAB HEMETOLOGY METHOD 06/24[facility]2025 3[facility] Lymphocytes Relative 31.3 % LAB HEMETOLOGY METHOD 06/24/2025 3:[address] [facility] Monocytes Relative 11.1 % LAB HEMETOLOGY METHOD 06/24/2025 3:31 PM EDT [facility] Eosinophils Relative 3.1 % LAB HEMETOLOGY METHOD 06/24/2025 3:31 PM EDT [facility] Basophils Relative 1.3 % LAB HEMETOLOGY METHOD 06/24/2025 3:31 PM EDT [facility] Immature Granulocytes Relative 0.3 % LAB HEMETOLOGY METHOD 06/24/2025 3:31 PM EDT [facility] Neutrophils Absolute 4.21 1.50 - 7.00 K/mcL LAB HEMETOLOGY METHOD 06/24/2025 3:31 PM EDT [facility] Lymphocytes Absolute 2.49 1.00 - 5.00 K/mcL LAB HEMETOLOGY METHOD 06/24/2025 3:31 PM EDT [facility] Monocytes Absolute 0.88 0.20 - 1.00 K/mcL LAB HEMETOLOGY METHOD 06/24/2025 3:31 PM EDT [facility] Eosinophils Absolute 0.25 0.00 - 0.50 K/mcL LAB HEMETOLOGY METHOD 06/24/2025 3:31 PM EDT [facility] Basophils Absolute 0.10 0.00 - 0.20 K/mcL LAB HEMETOLOGY METHOD 06/24/2025 3:31 PM EDT [facility] Immature Granulocytes Absolute 0.02 0.00 - 0.03 K/mcL LAB HEMETOLOGY METHOD 06/24/2025 3:31 PM EDT [facility] Blood Venous blood specimen / Unknown Venipuncture / Unknown 06/24/2025 3:09 PM EDT 06/24/2025 3:20 PM EDT us Forest Espinosa MD LAB BLOOD ORDERABLES Final Result [facility] [address] [place] [address], * Comprehensive metabolic panel (06/24/2025 3:09 PM EDT) Sodium 137 133 - 145 mmol/L LAB CHEMISTRY METHOD 06/24/2025 4:[address] [facility] Potassium 3.7 3.5 - 5.5 mmol/L LAB CHEMISTRY METHOD 06/24/2025 4:[address] [facility] Chloride 105 96 - 110 mmol/L LAB CHEMISTRY METHOD 06/24/2025 4:[address] [facility] CO2 29 21 - 32 mmol/L LAB CHEMISTRY METHOD 06/24/2025 4:[address] [facility] Anion Gap 3 3 - 11 LAB CHEMISTRY METHOD 06/24/2025 4:[address] [facility] Glucose 79 70 - 100 mg/dL LAB CHEMISTRY METHOD 06/24/2025 4:[address] [facility] BUN 21 5 - 25 mg/dL LAB CHEMISTRY METHOD 06/24/2025 4:[address] [facility] Creatinine 0.92 0.50 - 1.10 mg/dL LAB CHEMISTRY METHOD 06/24/2025 4:[address] [facility] eGFR 67 >=60 mL/min/1. 73m2 LAB CHEMISTRY METHOD 06/24/2025 4:[address] [facility] Comment:Calculation based on the Chronic Kidney Disease Epidemiology Collaboration (CKD-EPI) equation refit without adjustment for race. BUN/Creatinine Ratio 22.8 LAB CHEMISTRY METHOD 06/24/2025 4:[address] [facility] Calcium 9.7 8.5 - 10.5 mg/dL LAB CHEMISTRY METHOD 06/24/2025 4:[address] [facility] AST (SGOT) 21 10 - 42 unit/L LAB CHEMISTRY METHOD 06/24/2025 4:[address] [facility] ALT (SGPT) 25 10 - 60 unit/L LAB CHEMISTRY METHOD 06/24/2025 4:25 PM EDT [facility] Alkaline Phosphatase 79 42 - 121 unit/L LAB CHEMISTRY METHOD 06/24/2025 4:25 PM EDT [facility] Total Protein 7.2 6.0 - 8.0 g/dL LAB CHEMISTRY METHOD 06/24/2025 4:25 PM EDT [facility] Albumin 4.2 3.2 - 5.0 g/dL LAB CHEMISTRY METHOD 06/24/2025 4:25 PM EDT [facility] Total Bilirubin 0.6 0.0 - 1.4 mg/dL LAB CHEMISTRY METHOD 06/24/2025 4:25 PM EDT [facility] Blood Venous blood specimen / Unknown Venipuncture / Unknown 06/24/2025 3:09 PM EDT 06/24/2025 3:21 PM EDT us Forest Espinosa MD LAB BLOOD ORDERABLES Final Result [facility] [address] [place] [address], * US Abdomen Limited (04/28/2025 2:32 PM EDT) Anatomical Region Laterality Modality Body Ultrasound us Historical Provider IMDelisa US PROCEDURES Final R esult from Last 3 Months Insurance MEDICARE [facility] Care Teams Refinery Operator Gas Plant Relationship Specialty Start Date End Date Best Suh MD [address] [place] [address] Dr [address] [place] PCP - General 10/31/12
[2025-07-10 11:32] VITALS: BP 120/82; PULSE 88; TEMP 37.2; O2SAT 99; BMI 28.9
== END 2025-07-10 12:10 | disposition home or self-care (01) ==
LOC: HO.HMCHD 11:24
PROVIDERS: PCP Internal Medicine; Visit Provider Physician Assistant
DX: E11.42 Type 2 diabetes mellitus with diabetic polyneuropathy (principal); I10 Essential (primary) hypertension; G62.9 Polyneuropathy, unspecified; I83.90 Asymptomatic varicose veins of unspecified lower extremity

== ENCOUNTER 2025-07-10 12:16 | Outpatient (REF) | payer MEDICARE, OTHER, SELFPAY ==
[2025-07-10 13:17] LABS: Anion Gap 13 (12-20); Appearance Urine Clear; Blood Urea Nitrogen 21 mg/dL (9-16); Calcium 9.5 mg/dL (8.4-10.2); Carbon Dioxide 27 mmol/L (22-29); Chloride 105 mmol/L (96-108); Estimated Glomerular Filt Rate > 60; Glucose Urine UA Negative (Negative); Magnesium 2.0 mg/dL (1.6-2.6); PH 5.0 (5.0-9.0); Potassium 4.2 mmol/L (3.3-5.1); Sodium 141 mmol/L (135-145); Specific Gravity - Urine 1.010 (1.005-1.025); UMIC TRIGGER UACC YES
== END 2025-07-10 12:17 | disposition home or self-care (01) ==
LOC: HO.10HDL 12:16
PROVIDERS: Visit Provider Physician Assistant
DX: R25.2 Cramp and spasm (principal); R30.0 Dysuria; E11.9 Type 2 diabetes mellitus without complications; I10 Essential (primary) hypertension; G62.9 Polyneuropathy, unspecified; I83.90 Asymptomatic varicose veins of unspecified lower extremity
CPT/HCPCS: 36415; 80048; 81001; 83735; 99212

== ENCOUNTER 2025-07-13 14:25 | Outpatient (AMB) | payer MEDICARE, OTHER, SELFPAY ==
--- NOTE | 2025-07-13 15:22 | A.OFFVIS_ITS ---
Intake Intake Visit Reasons: 60 mins Squeak Rattle And Leak Repairer Required: No Accompanied by: Self / Same As Patient Allergies ciprofloxacin (CIPROFLOXACIN) Allergy (Intermediate, Verified 07/10/25 11:26) RASH HPI Comprehensive Diabetes Asmnt Most Recent Diabetes Results: 2 Hemoglobin A1c 6.1 % 07/15/20 Microalb/Creat Ratio TNP 06/11/25 Cholesterol, (<200) 198 mg/dL 02/13/24 HDL Cholesterol, (>40) 38 mg/dL L 02/13/24 Triglycerides, (<150) 153 mg/dL H 02/13/24 Creatinine, (0.5-1.4) 0.80 mg/dL 07/10/25 BUN, (9-16) 21 mg/dL H 07/10/25 Sodium, (135-145) 141 mmol/L 07/10/25 Potassium, (3.3-5.1) 4.2 mmol/L 07/10/25 Chloride, (96-108) 105 mmol/L 07/10/25 Carbon Dioxide, (22-29) 27 mmol/L 07/10/25 Calcium, (8.4-10.2) 9.5 mg/dL 07/10/25 AST, (5-31) 21 U/L 07/02/25 ALT, (0-31) 25 U/L 07/02/25 Total Protein, (6.5-8.0) 6.9 g/dL 07/02/25 Albumin, (3.5-5.0) 4.4 g/dL 07/02/25 [facility] Medical History Hepatomegaly Lumbar degenerative disc disease Type 2 diabetes mellitus Neuropathy Surgical History History of colonoscopy (~01/21/24) Family History Mother Dementia Afib Arthritis Mental health disorder Father Gastric cancer Social History Housing: House Alcohol intake: current Alcohol intake frequency: does not drink Patient Tobacco Use Status: Never used Tobacco e-Cigarette/Vaping Use: Never Used service: No Current occupational status: retired Cognitive needs: No Hearing needs: No Vision needs: Yes (rx glasses) Assessment & Plan Assessment & Plan (1) Type 2 diabetes mellitus: Code(s): E11.9 - Type 2 diabetes mellitus without complications Plan: Learning objectives: The patient was provided with verbal and written education on the following topics as outlined below. The patient met all learning objectives and was able to verbalize understanding and provide teach back of education topics discussed . The patient was provided with the opportunity to ask questions and all questions were answered. Patient Assessment Assess patient education level/literacy/barriers past medical history of hypertension, GERD and neuropathy. She was diagnosed with diabetes earlier this year when her A1c reach 6.6. She decided to work on diet and lifestyle modifications. She has lost 10 lb and her most recent A1c is 6.1. She is currently managing diabetes with meal planning and exercise she is not on diabetes medications at this time Patient has multiple conditions that require dietary restrictions, message sent to provider for referral to registered dietitian What is Diabetes? Pathophysiology How the body produces and uses insulin Identify type of DM Risk factors Signs of Diabetes Brief overview of Diabetes Management Monitoring blood sugar Following a meal plan Regular exercise Maintaining a healthy weight Taking medication as needed Members of the care team (PCP, RN, MA, RD, CDE, wringer machine operator) Blood glucose monitoring When/how often to test Target blood sugar ranges Introduction to Nutrition Importance of healthy diet in managing DM Diet is personalized to individual preference Review patient?s regular diet/food preferences Who prepares meals/does food shopping/ Dining out?/ Barriers? How diet effects glucose Eating 3 balanced meals a day with small, healthy snacks between meals Review food groups Carbohydrates: What is a carbohydrate/Which food/food groups are considered carbohydrates Effect of carbohydrates on blood glucose Portion sizes Reading food labels Basic carb counting (if applicable per nursing assessment) Plate method Meal planning Recommendations: Use diabetes food M[employer] for recipe ideas Follow plate method, consistent carbs and read nutritional labels. Smart Goal: Identify current foods in meal plan that contain carbohydrate Educational Materials: The patient was provided with the following written educational materials: Planning Healthy Meals Handout Patient Response to instructions: Comprehension of Instructions: Fair Readiness to make changes: Contemplation How confident they feel about making changes: Poor Portions of this note were created using voice recognition software, please excuse any words or phrases that may have been misinterpreted. Patient Instructions: Include regular daily activity. ADA recommends 30 minutes of exercise 5 days a week. Weight loss talk to PCP or Help Desk Support before starting new plan. Test blood sugar as directed; Fasting and 2hpp largest meal. Watch trends in results. Utilize results and to assess how food, physical activity and medications affect blood sugar results. Bring glucometer or CGM to next visit. Be knowledgeable about diabetes medication, its action, side effects, efficacy, toxicity, prescribed dosage, appropriate timing and frequency of administration, effect of missed and delayed doses and instructions for storage, travel and safety. Problem solving techniques to monitor hypo/hyperglycemia episodes and treatments. Reduce risk reduction behaviors, smoking cessation, regular eye, foot and dental examinations. Follow-up as needed Coding Level of Care Code Est Pt Level 1 (48127) Diagnoses Type 2 diabetes mellitus E11.9
--- OUTSIDE RECORDS SUMMARY | 2025-07-13 16:05 | XMS_ITS | Encounter Summary ---
Author Organization [facility] Address [address] [place] [address] Care Team Providers Care Art Educator Name Role Phone Best Suh MD Primary Care Provider [phone] Encounter Details Date Type Department Care Team (Late Contact Info) Description 03/18/2025 Lab Requisition [facility] - Main Lab [address] [facility] [place] [phone] Jodi Santillan NP [address] [facility] [address] [place] [address] Dysuria Social History Tobacco Use Types Packs/Day Years Used Date Smoking Tobacco: Never Assessed Comments Unknown Sex and Gender Information Value Date Recorded Sex Assigned at Not on file Legal Sex Female 10:07 PM EST Gender Identity Not on file Sexual Orientation Not on file documented as of this encounter Plan of Treatment Upcoming Encounters Date Type Department Care Team (Late st Contact Info) Description 08/13/2025 12:00 PM EDT Appointment [facility] Endoscopy [address] [place] [phone] Forest Espinosa MD [address] [facility] [address] [place] [address] documented as of this encounter Procedures Procedure Name Priority Date/Time Associated Diagnosis Comments BACTERIAL IDENTIFICATION AND SUSCEPTIBILITY, AEROBIC Routine 03/17/2025 12:00 AM EDT Dysuria documented in this encounter Results * Bacterial identification and susceptibility, aerobic (03/17/2025 12:00 AM EDT) Culture, Bacterial ID and Sensitivity Light Normal Urogenital julien. 03/18/2025 11:49 AM EDT [facility] Other Urine specimen from urethra / Unknown 03/17/2025 03/18/2025 10:43 AM EDT us Jodi Santillan AIR CONDITIONING EQUIPMENT MECHANIC LAB MICROBIOLOGY - GENERA L ORDERABLES Final Result [facility] [address] [place] [address], documented in this encounter Visit Diagnoses Diagnosis Dysuria documented in this encounter Care Teams Art Educator Relationship Specialty Start Date End Date Best Suh MD [address] [place] [address] Dr Ismael [place] PCP - General 10/31/12 documented as of this encounter
--- OUTSIDE RECORDS SUMMARY | 2025-07-13 16:05 | XMS_ITS | Encounter Summary ---
Author Organization [facility] Address [address] [place] [address] Care Team Providers Care Disposal Man Name Role Phone Best Suh MD Primary Care Provider [phone] Encounter Details Date Type Department Care Team (Late Contact Info) Description 02/13/2025 Lab Requisition [facility] - Main Lab [address] [facility] [place] [phone] Isidro Rios MD [address] [facility] [address] [place] [address] Dysuria Social History Tobacco Use Types Packs/Day Years Used Date Smoking Tobacco: Never Assessed Comments Unknown Sex and Gender Information Value Date Recorded Sex Assigned at Not on file Legal Sex Female 10:07 PM EST Gender Identity Not on file Sexual Orientation Not on file documented as of this encounter Plan of Treatment Upcoming Encounters Date Type Department Care Team (Late Contact Info) Description 08/13/2025 12:00 PM EDT Appointment [facility] Endoscopy [address] [place] [phone] Forest Espinosa MD [address] [facility] [address] [place], [place] [phone] documented as of this encounter Procedures Procedure Name Priority Date/Time Associated Diagnosis Comments BACTERIAL IDENTIFICATION AND SUSCEPTIBILITY, AEROBIC Routine 02/12/2025 12:00 AM EDT Dysuria documented in this encounter Results * Bacterial identification and susceptibility, aerobic (02/12/2025 12:00 AM EDT) Culture, Bacterial ID and Sensitivity Mixed urogenital julien, no uropathogens present. Suggest repeat specimen, if clinically indicated. 02/14/2025 10:36 AM EDT [facility] Other Urine specimen from urethra / Unknown 02/12/2025 02/13/2025 10:36 AM EDT us Isidro Rios MD LAB MICROBIOLOGY - G ENERAL ORDERABLES Final Result [facility] [address] [place] [address], documented in this encounter Visit Diagnoses Diagnosis Dysuria documented in this encounter Care Teams Disposal Man Relationship Specialty Start Date End Date Best Suh MD [address] [place] [address] Dr Guevara [place] PCP - General 10/31/12 documented as of this encounter
--- OUTSIDE RECORDS SUMMARY | 2025-07-13 16:05 | XMS_ITS | Encounter Summary ---
Author Organization [facility] Address [address] [place] [address] Care Team Providers Care Machine Brush Maker Name Role Phone Best Suh MD Primary Care Provider [phone] Encounter Details Date Type Department Care Team (Late Contact Info) Description 01/15/2025 Lab Requisition [facility] - Main Lab [address] [place] [address] sp Lee [facility] [employer] Sukumar Ob-Outreach Counselor Acute vaginitis Social History Tobacco Use Types [...] Info) Description 08/13/2025 12:00 PM EDT Appointment [facility] Endoscopy [address] [place] [phone] Forest Espinosa MD [address] [facility] [address] [place] [address] documented as of this encounter Procedures Procedure Name Priority Date/Time Associated Diagnosis Comments VAGINITIS PATHOGENS BY PCR Routine 01/15/2025 12:00 AM EST Acute vaginitis documented in this encounter Results * Vaginitis pathogens molecular study (01/15/2025 12:00 AM EST) Trichomonas vaginalis Negative Negative 2025 12:12 PM EST [facility] Gardnerella vaginalis Negative Negative 2025 12:12 PM EST [facility] Angela Species Negative Negative 12:12 PM EST [facility] Swab Vaginal structure / Unknown 01/15/2025 01/15/2025 7:31 PM EST us Nance Megan & Elvin-Jaylan O b-Outreach Counselor [facility] Fine LAB MICROBIOLOGY - GENERAL ORDERABLES Final Result [facility] [address] [place] [address], documented in this encounter Visit Diagnoses Diagnosis Acute vaginitis Unspecified vaginitis and vulvovaginitis documented in this encounter Care Teams Machine Brush Maker Relationship Specialty Start Date End Date Best Suh MD [address] [place] [address] Dr Guevara [place] PCP - General 10/31/12 documented as of this encounter
--- OUTSIDE RECORDS SUMMARY | 2025-07-13 16:05 | XMS_ITS | Clinical Summary ---
Author Organization [facility] [address] [facility] Address [address] [place] [address] Phone Care Team Providers Care Consulting Project Director Name Role Phone Best Suh MD Primary Care Provider [phone] Allergies Active Allergy Reactions Criticality Noted Date [...] Care Team Description 06/30/2025 Telephone Gastroenterology - [place] [address] [facility] [address] [facility] [address] [place] [address] Kandi Mcgrath [place] 06/24/2025 2:20 PM EDT Office Visit Gastroenterology - [address] [facility] [address] [facility] [address] [place] [phone] Forest Espinosa MD Right upper quadrant abdominal [...] Info) Description 08/13/2025 12:00 PM EDT Appointment [facility] Endoscopy [address] [place] [address] Forest Espinosa MD [address] [facility] [address] [place] [address] Health Maintenance Due Date Last Done Comments [...] fibrotest liver diease (06/24/2025 3:09 PM EDT) [facility] TAM FibroSure See Below 07/02/2025 1:38 PM EDT [facility] Comment: TAM FibroSure(R) Plus SEE REPORT UNDER SEPARATE COVER. REPORT WILL BE SENT TO THE ORDERING LABORATORY VIA PRINTER OR FAX. ADDITIONAL COPIES OF THE ORIGINAL REPORT MAY ALSO BE OBTAINED BY CALLING [facility] at [phone] Blood Venous blood specimen / Unknown Venipuncture / Unknown 06/24/2025 3:09 PM EDT 06/24/2025 3:20 PM EDT us Forest Espinosa MD LAB BLOOD ORDERABLES Edited Result - Final [facility] [address] [place] [address] * CBC auto differential (06/24/2025 3:09 PM EDT) Pathologist [facility] WBC 8.0 4.8 - 10.8 [...] % LAB HEMETOLOGY METHOD [facility]/24[facility]2025 3:31 PM [facility] MCV 84.5 79.0 - 98.0 FL LAB HEMETOLOGY METHOD 06/24/2025 3:31 PM [facility] MCH 28.1 27.0 - 32.0 pcg LAB HEMETOLOGY METHOD 06/24/2025 3:31 PM [facility] MCHC 33.3 32.0 - 37.0 g/dL LAB HEMETOLOGY METHOD 06/24/2025 3:31 PM [facility] RDW 12.6 11.0 - 15.0 % LAB HEMETOLOGY METHOD 06/24/2025 3:31 PM [facility] Platelets 260 130 - 400 K/mcL LAB HEMETOLOGY METHOD 06/24/2025 3:31 PM [facility] MPV 10.0 7.0 - 11.0 FL LAB HEMETOLOGY METHOD 06/24/2025 3:31 PM [facility] NRBC 0.0 <1.0 % LAB HEMETOLOGY METHOD 06/24/2025 3:31 PM [facility] NRBC Absolute 0.00 <0.10 K/mcL LAB HEMETOLOGY METHOD 06/24/2025 3:31 PM EDT [facility] Neutrophils Relative 52.9 % LAB HEMETOLOGY METHOD 06/24/2025 3:31 PM [facility] Lymphocytes Relative 31.3 % LAB HEMETOLOGY METHOD 06/24/2025 3:31 PM [facility] Monocytes Relative 11.1 % [...] Final Result [facility] [address] [place] [address], * Comprehensive metabolic panel (06/24/2025 3:09 PM EDT) Sodium 137 133 - 145 mmol/L LAB CHEMISTRY METHOD 06/24/2025 4:25 PM [facility] Potassium 3.7 3.5 - 5.5 mmol/L LAB CHEMISTRY METHOD 06/24/2025 4:25 PM [facility] Chloride 105 96 - 110 mmol/L LAB CHEMISTRY METHOD 06/24/2025 4:25 PM [facility] CO2 29 21 - 32 mmol/L LAB CHEMISTRY METHOD 06/24/2025 4:25 PM [facility] Anion Gap 3 3 - 11 LAB CHEMISTRY METHOD 06/24/2025 4:25 PM [facility] Glucose 79 70 - 100 mg/dL LAB CHEMISTRY METHOD 06/24/2025 4:25 PM [facility] BUN 21 5 - 25 mg/dL LAB CHEMISTRY METHOD 06/24/2025 4:25 PM [facility] Creatinine 0.92 0.50 - 1.10 mg/dL LAB CHEMISTRY METHOD 06/24/2025 4:25 PM [facility] eGFR 67 >=60 mL/min/1. 73m2 LAB CHEMISTRY METHOD 06/24/2025 4:25 PM [facility] Comment:Calculation based on the Chronic Kidney Disease Epidemiology Collaboration (CKD-EPI) equation refit without adjustment for race. BUN/Creatinine Ratio 22.8 LAB CHEMISTRY METHOD 06/24/2025 4:25 PM [facility] Calcium 9.7 8.5 - 10.5 mg/dL LAB CHEMISTRY METHOD 06/24/2025 4:25 PM [facility] AST (SGOT) 21 10 - 42 unit/L LAB CHEMISTRY METHOD 06/24/2025 4:25 PM [facility] ALT (SGPT) 25 10 [...] Result [facility] [address] [place] [address], * US Abdomen Limited (04/28/2025 2:32 PM EDT) Anatomical Region Laterality Modality Body Ultrasound us Historical Provider IMDelisa US PROCEDURES Final R esult from Last 3 Months Insurance MEDICARE [facility] Care Teams Consulting Project Director Relationship Specialty Start Date End Date Best Suh MD [address] [place] [address] Dr [address] [place] PCP - General 10/31/12
--- OUTSIDE RECORDS SUMMARY | 2025-07-13 16:05 | XMS_ITS | Patient Health Record ---
Author Organization [facility] Address [address] [place] [address] Care Team Providers Care Service Correspondent Name Role Phone VALENTE CAMARA Primary Care Provider Alvarado Barrett [phone] Allergies Allergen (clinical drug ingredient) Drug/Non Drug Allergy documented on EMR Reaction Allergy Type Onset Date Status ciprofloxacin Cipro Unknown Drug Allergy Act ericka Results Component Value Reference Range Notes Prothrombin Time INR Reviewed date:07/12/2025 11:57:12 PM Interpretation: Performing Lab:[facility], [address] [place] [phone] Notes/Report: Prothrombin Time 11.8 10.9-12.4 SEC INTERNATIONAL [...] prosthetic heart valves: 2.5 - 3.5 Ferritin Reviewed date:07/12/2025 11:57:03 PM Interpretation: Performing Lab:[facility], [address] [place] [phone] Notes/Report: Ferritin 269 10-250 ng/mL Alpha 1 Anti-trypsin Reviewed date:07/12/2025 11:56:35 PM Interpretation: Performing Lab:[facility], [address] [place] [phone] Notes/Report: Alpha 1 Anti-trypsin 163 83-199 mg/dL THIS TEST WAS PERFORMED AT: [facility] [address] [place] [phone] ALESSANDRO MALONE MD Liver Fibrosis Pnl Reviewed date:07/12/2025 11:56:52 PM Interpretation: Performing Lab:[facility], [address] [place] [phone] Notes/Report: Liver Fibrosis Score 0.21 Liver Fibrosis [...] a>0.62 and a<=1.00 : A3 (severe activity) UQG-Rcafr-5-Macroglobulin 176 106-279 mg/dL FIB-Haptoglobin 91 43-212 mg/dL FIB-Apolipoprotein A1 139 101-198 mg/dL FIB-Total Bilirubin 0.3 0.2-1.2 mg/dL FIB-GGT 28 3-65 U/L FIB-ALT 17 6-29 U/L Reference ID [id number] Footnote SEE NOTE The reliability of results is dependent on compliance with the preanalytical and analytical conditions recommended by [employer]. The tests have to be deferred for: [...] The performance characteristics have been determined by [facility]. It has not been cleared or approved by the U.S. Food and Drug Administration. Performance characteristics refer to the analytical performance of the test. [employer], [employer], the associated logo, [employer]et and all associated [employer] morales are the registered trademarks of [employer]. All third libertarian morales - (R) and (TM) - are the property of their respective owners. (C) 2478-1052 [employer]. All rights reserved. THIS TEST WAS PERFORMED AT: [facility] [place] [address] [place] [address] ADELA BORJAS MD,PHD,PETER FOSTER Reflex Titer and Pattern Reviewed date:07/12/2025 11:56:27 PM Interpretation: Performing Lab:[facility], [address] [place] [phone] Notes/Report: Anti Nuclear Antibody Screen NEGATIVE NEGATIVE [...] AC-0: Negative International Consensus on FOSTER Patterns (https://doi.org/10.1515/c ltr-4526-0771) For additional information, please refer to http://education.OrthoSensor/faq/RSA309 (This link is being provided for informational/ educational purposes only.) THIS TEST WAS PERFORMED AT: [facility] [address] [place] [phone] ALESSANDRO MALONE MD Anti Nuclear Antibody Titer TNP Anti Nuclear Antibody Pattern TNP FOSTER Titer 2 TNP FOSETR Pattern 2 TNP FOSTER Titer 3 TNP FOSTER Pattern 3 TNP Mitochondrial Antibody Reviewed date:07/12/2025 11:56:19 PM Interpretation: Performing Lab:[facility], [address] [place] [phone] Notes/Report: Mitochondrial Antibodies NEGATIVE NEGATIVE THIS TEST WAS PERFORMED AT: [facility] [address] [place] [phone] ALESSANDRO MALONE MD Mitochondrial Ab Titer TNP Smooth Muscle Antibody Reviewed date:07/12/2025 11:56:09 PM Interpretation: Performing Lab:[facility], [address] [place] [phone] Notes/Report: Smooth Muscle Antibody <20 <20 U [...] type 1. THIS TEST WAS PERFORMED AT: [facility] NATHALIE HERR MD,PHD Hepatitis B,C Profile Reviewed date:07/05/2025 10:32:28 PM Interpretation: Performing Lab:[facility], [address] [place] [phone] Notes/Report: Hepatitis B Surface Antibody NONREACTIVE Nonreactive Nonreactive: < 8.00 mIU/mL Hepatitis B Core Antibody Nonreactive Nonreactive Hepatitis C Antibody Nonreactive Nonreactive Antibodies to HCV not detected; does not exclude early acute HCV infection. Hepatitis B Surface Antigen Negative Negative Complete Blood Count Auto Di ff Reviewed date:07/13/2025 12:00:21 AM Interpretation: Performing Lab:[facility], [address] [place] [phone] Notes/Report: White Blood Count 5.5 4.8-10.8 X10*3/uL Red Blood Count 4.75 4.20-5.50 X10*6/uL Hemoglobin 13.5 12.0-16.0 g/dl Hematocrit 39.9 37.0-47.0 % Mean Corpuscular Volume 84.0 80.0-98.0 fL Mean Corpuscular Hemoglobin 28.4 27.0-33.0 pg Mean Corpuscular HGB Conc 33.8 31.0-35.0 g/dl Red Cell Distribution Width 12.6 11.0-16.0 % Platelet Count 260 160-400 X10*3/uL Mean Platelet Volume 9.9 9.4-12.3 fL Neutrophils Percent Auto 52.0 45-73 % Imm Gran Pct Auto 0.4 0.0-0.4 % Lymphocytes Percent Auto 34.1 20-40 % Monocytes Percent Auto 8.4 2-11 % Eosinophils Percent Auto 3.8 0-4 % Basophils Percent Auto 1.3 0-2 % NRBC Pct Auto 0.0 0.0-0.2 /100WBC Neutrophils Absolute Auto 2.9 2.0-8.3 x10*3/u L Imm Gran Abs Auto 0.02 0.00-0.03 X10*3/uL Lymphocytes Absolute Auto 1.9 1.2-4.9 X10*3/u L Monocytes Absolute Auto 0.5 0.1-1.2 X10*3/uL Eosinophils Absolute Auto 0.2 0.0-0.4 X10*3/u L Basophils Absolute Auto 0.1 0.0-0.2 X10*3/uL NRBC Abs Auto 0.000 0.0-0.012 X10*3/uL Liver Panel Reviewed date:07/05/2025 10:31:29 PM Interpretation: Performing Lab:[facility], [address] [place] [phone] Notes/Report: Bilirubin Total 0.4 0.0-1.0 mg/dL Bilirubin Direct 0.2 0.0-0.5 mg/dL Aspartate Amino Transferase 21 5-31 U/L Alanine Aminotransferase 25 0-31 U/L Total Protein 6.9 6.5-8.0 g/dL Albumin Level 4.4 3.5-5.0 g/dL Alkaline Phosphatase 71 39-117 U/L IRON PROFILE Reviewed date:07/12/2025 11:58:07 PM Interpretation: Performing Lab:[facility], [address] [place] [phone] Notes/Report: Iron 78 30-160 mcg/dL Total Iron Binding Capacity 275 228-428 mcg/d L Percent Iron Saturation 28 15-50 % Unsaturated Iron Binding 197 Hemoglobin A1c Reviewed date:07/05/2025 10:30:45 PM Interpretation: Performing Lab:[facility], [address] [place] [phone] Notes/Report: Hemoglobin A1c % 6.1 <6.0 % Hemoglobin A1C Reference Range Adults: 4.8 - 6.0 % Non diabetic: < 6.0 % Goal: < 7.0 % Additional Action Suggested: > 8.0 % Note: Hemoglobin A1c results are invalid for patients with abnormal amounts of HbF. Blood transfusions may impact the HbA1c concentration in the patient sample. Estimated Average Glucose 128 eAG = Estimated average glucose which is %A1C expressed as average glucose, using the formula of the H2H-Iqzethg Average Glucose study (ADAG), Diabetes Care, Vol.31,#8, Jun. 2007 Reason For Referral No Information Medications Medication SIG (Take, Route, Frequency, Duration) Notes Start Date End Date Status Omeprazole 20 MG 1 capsule 1/2 to 1 h our before morning meal Orally Once a day Active Vitamin D3 50 MCG (1999 UT) 1 capsule Orally Once a day [...] Problem Status W/U Status Risk Notes Problem Colon cancer screening (831563067) Colon cancer screening (Z12.11) Active confirmed Problem Fatty liver (127167343) Fatty liver (K76.0) Active confirmed Problem History of adenomatous polyp of colon (810721274) History of adenomatous polyp of colon (Z86.0101) Active confirmed Vital Signs Blood pressure diastolic 77 mm Hg 07/02/2025 Height 63 in 07/02/2025 Blood pressure systolic 111 mm Hg 07/02/2025 Weight 163 lbs 07/02/2025 BMI 28.87 kg/m2 07/02/2025 Encounters Encounter Location Date Provider Diagnosis [facility] [address] [place] [phone] 07/02/2025 Alvarado Mccoy Fatty liver K76.0 ; History of adenomatous polyp of colon Z86.0101 and Colon cancer screening Z12.11 [facility] [address] [place] [phone] 07/02/2025 Alvarado Mccoy [facility] [address] [place] [phone] 07/12/2025 Alvarado Mccoy Assessments Encounter Date Diagnosis (ICD Code) Assessment [...] she needs any further imaging studies given the CT and ultrasound reports from earlier this year. Assuming the liver workup is negative and she is otherwise feeling well, I would not need to see her in follow-up in regard to the underlying component of fatty liver. However, I would recommend she have a liver profile every 6 months or so and be sure to have her blood sugars monitored with you as well. We did review that she [...] she needs any further imaging studies given the CT and ultrasound reports from earlier this year. Assuming the liver workup is negative and she is otherwise feeling well, I would not need to see her in follow-up in regard to the underlying component of fatty liver. However, I would recommend she have a liver profile every 6 months or so and be sure to have her blood sugars monitored with you as well. We did review that she [...] she needs any further imaging studies given the CT and ultrasound reports from earlier this year. Assuming the liver workup is negative and she is otherwise feeling well, I would not need to see her in follow-up in regard to the underlying component of fatty liver. However, I would recommend she have a liver profile every 6 months or so and be sure to have her blood sugars monitored with you as well. We did review that she will be due for a follow-up colonoscopy in 2026 given her history of tubular adenomas in the past. Douglas was comfortable with this plan. Thank you again for allow me to participate in Douglas's care. I will continue to keep you advised of her progress. Plan Of Treatment Pending Test Test Name Order Date LIVER PROFILE 07/02/2025 IRON + IBC (FE) 07/02/2025 CBC w DIFF 07/02/2025 Insurance Providers Payer Name Payer Address Payer Phone Subscriber Number Group Number Insured Name Patient Relationship to Insured Coverage Start Date Coverage End Date MEDICARE OF [place] [address] [place] [address] [phone] [id number] DOUGLAS CARMEN Self - patient is the insured [address] [facility] [address] [place] [address] [id number] VIDALHALEY DOUGLAS Aquino Self - patient is the insured 5 Medical (General) History Medical History History ICD Code NIDDM hypertension GERD neuropathy urinary incontenence- stress induced degenerative disease lumbosacral spine Fatty liver but normal LFT's and imaging in 2024 seasonal allergies Diverticulitis IBS Denies AK,CVA,Lung disease,renal disease Tubular adenomas with previo us colonoscopies by Dr. Mora. Her most recent exam was in January 2024 with a removal of a small tubular adenoma Surgical History Surgery Date(Month/Year) cholecystectomy
--- OUTSIDE RECORDS SUMMARY | 2025-07-13 16:05 | XMS_ITS | Patient Health Record ---
Author Organization [facility] [place] Address [address] [place] [address] Care Team Providers Care Maintenance Shop Clerk Name Role Phone Best Suh MD Primary Care Provider Unavaila Luiz Diaz Unavailable [phone] Allergies Allergen (clinical drug ingredient) Drug/Non Drug [...] 90 Active Ciclopirox 0.77 % 1 application Zipper Measurer ally to affected toenails Twice a day; [...] Treatment Pending Test Test Name Order Date 15907 I&D ABSCESS- SIMPLE,SINGLE 023 Insurance Providers Payer Name Payer Address Payer Phone Subscriber Number Group Number Insured Name Patient Relationship to Insured Coverage Start Date Coverage End Date Medicare National [employer] [address] [place] [address] [id number] Olman Hurst i Self - patient is the insured [facility] [address] [place] [address] [id number] Olman Hurst i Self - patient is the insured Medical (General) History Medical History History ICD Code Arthritis Back,Hip,and Knee pain Cataracts Diverticulosis Neuropathy Headaches/Migraines Osteoporosis Poor circulation chronic sinusitis Surgical History Surgery Date(Month/Year) cholecystectomy 1990
== END 2025-07-13 15:25 | disposition home or self-care (01) ==
LOC: HO.ENCR 14:27
PROVIDERS: PCP Internal Medicine; Visit Provider Registered Nurse Diabetes Educator
DX: E11.9 Type 2 diabetes mellitus without complications (principal)

== ENCOUNTER → 2025-07-13 14:25 | Outpatient (BNVA) | payer MEDICARE, OTHER, SELFPAY | PROVIDERS: PCP Internal Medicine; Visit Provider Registered Nurse Diabetes Educator | DX: E11.40 Type 2 diabetes mellitus with diabetic neuropathy, unspecified (principal) | CPT/HCPCS: 99211 ==

== ENCOUNTER 2025-07-28 13:27 | Outpatient (REF) | payer MEDICARE, OTHER, SELFPAY ==
[2025-07-28 19:26] LABS: Folate 12.5 ng/mL (> or = 4.0); Vitamin B12 512 pg/mL (200-900)
== END 2025-07-28 13:28 | disposition home or self-care (01) ==
LOC: HO.LNP 13:27
PROVIDERS: PCP Internal Medicine; Visit Provider Student in an Organized Health Care Education/Training Program
DX: B35.1 Tinea unguium (principal); G62.9 Polyneuropathy, unspecified; R25.2 Cramp and spasm; M51.369 Other intervertebral disc degeneration, lumbar region without mention of lumbar back pain or lower extremity pain
CPT/HCPCS: 11755; 36415; 82607; 82746; 99202

== ENCOUNTER 2025-07-28 13:27 | Outpatient (AMB) | payer MEDICARE, OTHER, SELFPAY ==
--- NOTE | 2025-07-28 13:32 | A.OFFVIS_ITS ---
Vital Signs 07/28/25 13:33 Height 5 ft 3 in Weight 163 lb BMI 28.9 Intake Visit Reasons: New Pt- Left Calf cramps Intake Note: Olman is a 70 year old woman who presents today as a new patient for an evaluation of cramping in her left calf. Patient mentions she has bilateral neuropathy in her feet which causes her toes to be numb. She reports the cramping has been going on for about 6 months. Allergies ciprofloxacin (CIPROFLOXACIN) Allergy (Intermediate, Verified 07/28/25 13:33) RASH HPI HPI New Pt- Left Calf cramps: Details: 70-year-old female with past medical history of hypertension, GERD, type 2 diabetes (A1c 6.1%), lumbar degenerative disc disease, bilatera lower extremity neuropathy, presents today for initial evaluation of left leg cramp. Patient mentions this has been occurring for approximately 6 months. She states that the cramps are worst under activity after walking, and she also notes experiencing thigh cramps at night when resting. She also experiences a separate sensation of sharp pain behind her left knee occasionally. She denies any acute onset history, denies trauma. Patient mentions she has a history of lower back pain and received a spinal injection approximately 9 months ago, however she denies shooting pain or sensations from her back down her legs. She also complains of burning sensation on the bottom of her feet bilaterally, closely to her toes, which is also worst at night. She has taken Magnesium for her calf pain but did not find benefit. Patient also notes she is currently applying ciclopirox solution for fungal toenails. She denies shortness of breath or chest pain. [facility] Medical History Hepatomegaly Lumbar degenerative disc disease Type 2 diabetes mellitus Neuropathy Surgical History History of colonoscopy (~01/21/24) Family History Mother Dementia Afib Arthritis Mental health disorder Father Gastric cancer Social History Housing: House Alcohol intake: current Alcohol intake frequency: does not drink Patient Tobacco Use Status: Never used Tobacco e-Cigarette/Vaping Use: Never Used service: No Current occupational status: retired Cognitive needs: No Hearing needs: No Vision needs: Yes (rx glasses) Review of Systems Const All systems reviewed & are unremarkable except as noted in HPI and below Physical Exam Vital Signs: BMI result Body Mass Index 28.9 Extrem Other: *Bilateral Lower Extremity Focused Exam Vascular: DP/PT 2/4 right foot, 1/4 left foot. Temperature gradient warm to cool, no pedal edema. varicosities bilateral lower extremities. Derm: No open wounds or lacerations. Discolored thickened toenails bilateral hallux, worst to the lateral aspect of the right hallux nail. Neuro: Negative Tinel signs bilateral lower extremities. MSK: Negative leg raise test, pain to lower back on leg raise however no reproduction of symptoms. Ankle and feet range of motion intact, muscle strength 4+ out of 5 bilaterally. Negative forefoot squeeze test, negative Irvin's click. Office Procedures AMB Debridement/Avulsion Podia Nail Biopsy: 24715 Nail unit biopsy (right toe nail) Procedure code (CPT) selection complete Results Reviewed Results Reviewed: Laboratory Tests 07/02/25 10:30 Hemoglobin A1c % 6.1 H Laboratory Tests 07/10/25 12:20 Sodium 141 Potassium 4.2 Chloride 105 Calcium 9.5 Magnesium 2.0 Assessment & Plan Assessment & Plan (1) Cramps of left lower extremity: Code(s): R25.2 - Cramp and spasm Category: Medical Plan: * Discussed possible etiology of left foot cramps. Differential diagnosis includes intermittent claudication, metabolic derangement, progression of her lumbar radiculopathy, peripheral neuropathy. Less likely muscle strain or DVT. * Referred for arterial Doppler to evaluate for possible intermittent claudication/peripheral artery disease. Patient is at risk due to history of diabetes mellitus. * Patient has a referral to vascular surgery. Patient was recommended scheduling her appointment with the vascular surgery team. * (2) Neuropathy: Code(s): G62.9 - Polyneuropathy, unspecified Category: Medical (3) Lumbar degenerative disc disease: Code(s): M51.369 - Other intervertebral disc degeneration, lumbar region without mention of lumbar back pain or lower extremity pain Category: Medical Plan: * Patient has recommended follow up with her spine surgeon to discuss possible progression of her lumbar radiculopathy given her symptoms. (4) Tinea unguium: Code(s): B35.1 - Tinea unguium Category: Medical Plan * Performed nail plate biopsy right hallux. * Patient is currently applying ciclopirox, however she has not moving the lacquer the end of the week. She was instructed on proper protocol and use for ciclopirox topical lacquer. Orders: Orders Surgical Today B35.1 - Tinea unguium Vitamin B12 and Folate Today G62.9 - Polyneuropathy, unspecified Fungus Cult Hair/Skin/Nail Today B35.1 - Tinea unguium US arterial duplex LE BI Today I70.212 - Atherosclerosis of [place] arteries of extremities with intermittent claudication, left leg, R25.2 - Cramp and spasm AMB Debridement/Avulsion Podiatry Today B35.1 - Tinea unguium Coding Level of Care Code New Pt Level 4 (69703) Diagnoses Cramps of left lower extremity R25.2 Neuropathy G62.9 Lumbar degenerative disc disease M51.369 Tinea unguium B35.1 CPT Codes Skin Debridement - CPT: 93523 Nail unit biopsy ([id number]) Time Spent (min) 50
[2025-07-28 13:33] VITALS: BMI 28.9
--- OUTSIDE RECORDS SUMMARY | 2025-07-28 15:56 | XMS_ITS | Encounter Summary ---
Author Organization [facility] Address [address] [place] [address] Care Team Providers Care Horse Racetrack Manager Name Role Phone Best Suh MD Primary Care Provider [phone] Encounter Details Date Type Department Care Team (Late st Contact Info) Description 02/13/2025 Lab Requisition [facility] [address] [place] [phone] Isidro Rios MD [address] [address] Dysuria Social History Tobacco Use Types Packs/Day [...] if clinically indicated. 02/14/2025 10:36 AM EDT [facility] Other Urine specimen from urethra / Unknown 02/12/2025 02/13/2025 10:36 AM EDT us Isidro Rios MD LAB MICROBIOLOGY - G ENERAL ORDERABLES Final Result [facility] [address] [place] [address], documented in this encounter Visit Diagnoses Diagnosis Dysuria documented in this encounter Care Teams Horse Racetrack Manager Relationship Specialty Start Date End Date Best Suh MD [address] [place] [address] Dr Ismael [place] PCP - General 10/31/12 documented as of this encounter
--- OUTSIDE RECORDS SUMMARY | 2025-07-28 15:56 | XMS_ITS | Encounter Summary ---
Author Organization [facility] Address [address] [place] [address] Care Team Providers Care Homicide Investigator Name Role Phone Best Suh MD Primary Care Provider [phone] Reason for Visit * Reason Onset Date Comments special procedure cx 07/27/2025 Encounter Details Date Type Department Care Team (Late st Contact Info) Description 07/27/2025 Telephone Gastroenterology - [address] [facility] [address] [place] [phone] Forest Espinosa MD [address] [place] [phone] Social History Tobacco Use Types Packs/Day Years Used Date Smoking Tobacco: Never Smokeless Tobacco: Never Alcohol Use Standard Drinks/Week Comments Never 0 (1 standard drink = 0.6 oz pur e alcohol) Comments Unknown Sex and Gender Information Value Date Recorded Sex Assigned at Not on file Legal Sex Female 10:07 PM EST Gender Identity Not on file Sexual Orientation Not on file documented as of this encounter Progress Notes * Yane Hernandez - 07/27/2025 1:05 PM EDT Cx procedure * Lida Escobar - 07/27/2025 12:42 PM EDT Patient calling cx procedure due to getting a second opinion and stating she does not need it. Please cx procedure. documented in this encounter Plan of Treatment Not on file documented as of this encounter Visit Diagnoses Not on filedocumented in this encounter Care Teams Homicide Investigator Relationship Specialty Start Date End Date Best Suh MD [address] [place] [address] Dr Ismael [place] PCP - General 10/31/12 documented as of this encounter
--- OUTSIDE RECORDS SUMMARY | 2025-07-28 15:56 | XMS_ITS | Clinical Summary ---
Author Organization [facility] 299 [facility] Address [address] [place] [address] Phone Care Team Providers Care Education And Outreach Coordinator Name Role Phone Best Suh MD Primary Care Provider [phone] Allergies Active Allergy Reactions Criticality Noted Date [...] Encounters Date Type Department Care Team Description 07/27/2025 Telephone Gastroenterology - [facility] [address] [place] [address] Forest Espinosa MD 06/30/2025 Telephone Gastroenterology - [place] [address] [place] [phone] Kandi Mcgrath [place] 06/24/2025 2:20 PM EDT Office Visit Gastroenterology - [facility] [address] [place] [phone] Forest Espinosa MD Right upper quadrant abdominal [...] 06/24/2025 2:18 PM EDT Plan of Treatment Health Maintenance Due Date [...] 10/21/2022 Social Influencers of Health Screening 10/21/2022 Depression Screening 11/19/2024 COVID-19 Vaccine (4 - 2024-2 6 season) 2025 10/20/2021, 03/28/2021, 03/07/2021 Influenza Vaccine (#1) 2025 Hypertension/CHF/CAD Annual BMP [...] fibrotest liver diease (06/24/2025 3:09 PM EDT) [facility] TAM FibroSure See Below 07/02/2025 1:38 PM EDT [facility] Comment: TAM FibroSure(R) Plus SEE REPORT UNDER SEPARATE COVER. REPORT WILL BE SENT TO THE ORDERING LABORATORY VIA PRINTER OR FAX. ADDITIONAL COPIES OF THE ORIGINAL REPORT MAY ALSO BE OBTAINED BY CALLING [facility]IENT [facility] at [phone] Blood Venous blood specimen / Unknown Venipuncture / Unknown 06/24/2025 3:09 PM EDT 06/24/2025 3:20 PM EDT Forest Espinosa MD LAB BLOOD ORDERABLES Edited Result - Final [facility] [address] [place] [address] * CBC auto differential (06/24/2025 3:09 PM EDT) [facility] WBC 8.0 4.8 - 10.8 K/mcL LAB HEMETOLOGY METHOD 06/24/2025 3:31 PM EDT [facility] RBC 4.80 3.80 - 4.80 M/mcL LAB HEMETOLOGY METHOD 06/24/2025 3:31 PM EDT [facility] Hemoglobin 13.4 11.5 - 16.0 g/dL LAB HEMETOLOGY METHOD 06/24/2025 3:31 PM EDT [facility] Hematocrit 40.3 35.0 - 47.0 % LAB HEMETOLOGY METHOD 06/24/2025 3:31 PM [facility] MCV 84.5 79.0 - 98.0 FL LAB HEMETOLOGY METHOD 06/24/2025 3:31 PM [facility] MCH 28.1 27.0 - 32.0 pcg LAB HEMETOLOGY METHOD 06/24/2025 3:31 PM [facility] MCHC 33.3 32.0 - 37.0 g/dL LAB HEMETOLOGY METHOD 06/24/2025 3:31 PM [facility] RDW 12.6 11.0 - 15.0 % LAB HEMETOLOGY METHOD 06/24/2025 3:31 PM [facility] Platelets 260 130 - 400 K/mcL LAB HEMETOLOGY METHOD 06/24/2025 3:31 PM [facility] MPV 10.0 7.0 - 11.0 FL LAB HEMETOLOGY METHOD 06/24/2025 3:31 PM [facility] NRBC 0.0 <1.0 % LAB HEMETOLOGY METHOD 06/24/2025 3:31 PM [facility] NRBC Absolute 0.00 <0.10 K/mcL LAB HEMETOLOGY METHOD 06/24/2025 3:31 PM [facility] Neutrophils Relative 52.9 % LAB HEMETOLOGY METHOD 06/24/2025 3:31 PM [facility] Lymphocytes Relative 31.3 % LAB HEMETOLOGY METHOD 06/24/2025 3:31 PM [facility] Monocytes Relative 11.1 % LAB HEMETOLOGY METHOD 06/24/2025 3:31 PM [facility] Eosinophils Relative 3.1 % LAB HEMETOLOGY METHOD 06/24/2025 3:31 PM [facility] Basophils Relative 1.3 % LAB HEMETOLOGY METHOD 06/24/2025 3:31 PM EDT [facility] Immature Granulocytes Relative 0.3 % LAB HEMETOLOGY METHOD 06/24/2025 3:31 PM EDT [facility] Neutrophils Absolute 4.21 1.50 - 7.00 K/mcL LAB HEMETOLOGY METHOD 06/24/2025 3:31 PM EDT [facility] Lymphocytes Absolute 2.49 1.00 - 5.00 K/mcL LAB HEMETOLOGY METHOD 06/24/2025 3:31 PM EDT [facility] Monocytes Absolute 0.88 0.20 - 1.00 K/mcL LAB HEMETOLOGY METHOD 06/24/2025 3:31 PM EDT [facility] Eosinophils Absolute 0.25 0.00 - [...] Result [facility] [address] [place] [address], * Comprehensive metabolic panel (06/24/2025 3:09 PM EDT) Sodium 137 133 - 145 mmol/L LAB CHEMISTRY METHOD 06/24/2025 4:25 PM [facility] Potassium 3.7 3.5 - 5.5 mmol/L LAB CHEMISTRY METHOD 06/24/2025 4:25 PM [facility] Chloride 105 96 - 110 mmol/L LAB CHEMISTRY METHOD 06/24/2025 4:25 PM [facility] CO2 29 21 - 32 mmol/L LAB CHEMISTRY METHOD 06/24/2025 4:25 PM [facility] Anion Gap 3 3 - 11 LAB CHEMISTRY METHOD 06/24/2025 4:25 PM [facility] Glucose 79 70 - 100 mg/dL LAB CHEMISTRY METHOD 06/24/2025 4:25 PM [facility] BUN 21 5 - 25 mg/dL LAB CHEMISTRY METHOD 06/24/2025 4:25 PM [facility] Creatinine 0.92 0.50 - 1.10 mg/dL LAB CHEMISTRY METHOD 06/24/2025 4:25 PM [facility] eGFR 67 >=60 mL/min/1. 73m2 LAB CHEMISTRY METHOD 06/24/2025 4:25 PM [facility] Comment:Calculation based on the Chronic Kidney Disease Epidemiology Collaboration (CKD-EPI) equation refit without adjustment for race. BUN/Creatinine Ratio 22.8 LAB CHEMISTRY METHOD 06/24/2025 4:25 PM [facility] Calcium 9.7 8.5 - 10.5 mg/dL LAB CHEMISTRY METHOD 06/24/2025 4:25 PM [facility] AST (SGOT) 21 10 - 42 unit/L LAB CHEMISTRY METHOD 06/24/2025 4:25 PM [facility] ALT (SGPT) 25 10 - 60 unit/L LAB CHEMISTRY METHOD 06/24/2025 4:25 PM [facility] Alkaline Phosphatase 79 42 - 121 unit/L LAB CHEMISTRY METHOD 06/24/2025 4:25 PM EDT [facility] Total Protein 7.2 6.0 - 8.0 g/dL LAB CHEMISTRY METHOD 06/24/2025 4:25 PM EDT [facility] Albumin 4.2 3.2 - 5.0 g/dL LAB CHEMISTRY METHOD 06/24/2025 4:25 PM EDT [facility] Total Bilirubin 0.6 0.0 - 1.4 mg/dL LAB CHEMISTRY METHOD 06/24/2025 4:25 PM EDT [facility] Blood Venous blood specimen / Unknown Venipuncture / Unknown 06/24/2025 3:09 PM EDT 06/24/2025 3:21 PM EDT us Forest Espinosa MD LAB BLOOD ORDERABLES Final Result [facility] [address] [place] [address], [place] [phone] * US Abdomen Limited (04/28/2025 2:32 PM EDT) Anatomical Region Laterality Modality Body Ultrasound us Historical Provider IMG US PROCEDURES Final R esult from Last 3 Months Insurance MEDICARE [facility] [address] [place] [address] Care Teams Education And Outreach Coordinator Relationship Specialty Start Date End Date Best Suh MD [address] [place] [address] Dr [address] [place], [place] PCP - General 10/31/12
--- OUTSIDE RECORDS SUMMARY | 2025-07-28 15:56 | XMS_ITS | Encounter Summary ---
Author Organization [facility] Address [address] [place] [address] Care Team Providers Care Hollow Core Door Frame Assembler Name Role Phone Best Suh MD Primary Care Provider [phone] Encounter Details Date Type Department Care Team (Late st Contact Info) Description 01/15/2025 Lab Requisition [facility] - Main Lab [address] [place] [address] [facility] Sukumar Ob-Revenue Enforcement Agent Acute vaginitis Social History Tobacco Use Types [...] vaginalis Negative Negative 2025 12:12 PM EST [facility] Gardnerella vaginalis Negative Negative 2025 12:12 PM EST [facility] Angela Species Negative Negative 12:12 PM [facility] Swab Vaginal structure / Unknown 01/15/2025 01/15/2025 7:31 PM EST us [facility] O b-Revenue Enforcement Agent [facility] LAB MICROBIOLOGY - GENERAL ORDERABLES Final Result [facility] [address] [place] [address], documented in this encounter Visit Diagnoses Diagnosis Acute vaginitis Unspecified vaginitis and vulvovaginitis documented in this encounter Care Teams Hollow Core Door Frame Assembler Relationship Specialty Start Date End Date Best Suh MD [address] [place] [address] Dr Ismael [place] PCP - General 10/31/12 documented as of this encounter
--- OUTSIDE RECORDS SUMMARY | 2025-07-28 15:56 | XMS_ITS | Patient Health Record ---
Author Organization [facility] Address [address] [place] [address] Care Team Providers Care Orthopaedic Doctor Name Role Phone VALENTE CAMARA Primary Care Provider Alvarado Barrett [phone] Allergies Allergen (clinical drug ingredient) Drug/Non Drug Allergy documented on EMR Reaction Allergy Type Onset Date Status ciprofloxacin Cipro Unknown Drug Allergy Act ericka Results Component Value Reference Range Notes Prothrombin Time INR Reviewed date:07/12/2025 11:57:12 PM Interpretation: Performing Lab:[facility], [address] [place] [phone] Notes/Report: Prothrombin Time 11.8 10.9-12.4 SEC INTERNATIONAL [...] Ferritin Reviewed date:07/12/2025 11:57:03 PM Interpretation: Performing Lab:[facility], [address] [place] [address] Notes/Report: Ferritin 269 10-250 ng/mL Alpha 1 Anti-trypsin Reviewed date:07/12/2025 11:56:35 PM Interpretation: Performing Lab:[facility], [address] [place] [phone] Notes/Report: Alpha 1 Anti-trypsin 163 83-199 mg/dL THIS TEST WAS PERFORMED AT: [facility] [address] [place] [phone] ALESSANDRO MALONE MD Liver Fibrosis Pnl Reviewed date:07/12/2025 11:56:52 PM Interpretation: Performing Lab:[facility], [address] [place] [phone] Notes/Report: Liver Fibrosis Score 0.21 Liver Fibrosis [...] a>0.62 and a<=1.00 : A3 (severe activity) IFL-Xedlr-8-Macroglobulin 176 106-279 mg/dL FIB-Haptoglobin 91 43-212 mg/dL FIB-Apolipoprotein A1 139 101-198 mg/dL FIB-Total Bilirubin 0.3 0.2-1.2 mg/dL FIB-GGT 28 3-65 U/L FIB-ALT 17 6-29 U/L Reference ID [id number] Footnote SEE NOTE The reliability of results is dependent on compliance with the preanalytical and analytical conditions recommended by [employer]. The tests have to be deferred for: [...] The performance characteristics have been determined by [facility]. It has not been cleared or approved by the U.S. Food and Drug Administration. Performance characteristics refer to the analytical performance of the test. [employer], [employer], the associated logo, [employer] and all associated [employer] morales are the registered trademarks of [employer]. All third green party morales - (R) and (TM) - are the property of their respective owners. (C) 0439-8802 [employer]. All rights reserved. THIS TEST WAS PERFORMED AT: [email or web address] [facility] [address] [place] [address] ADELA BORJAS MD,PHD,PETER FOSTER Reflex Titer and Pattern Reviewed date:07/12/2025 11:56:27 PM Interpretation: Performing Lab:[facility], [address] [place] [phone] Notes/Report: Anti Nuclear Antibody Screen NEGATIVE NEGATIVE [...] Negative International Consensus on FOSTER Patterns (https://doi.org/10.1515/c lmq-4729-1777) For additional information, please refer to http://education.[employer]/faq/BUL402 (This link is being provided for informational/ educational purposes only.) THIS TEST WAS PERFORMED AT: [facility] [address] [place] [phone] ALESSANDRO MALONE MD Anti Nuclear Antibody Titer TNP Anti Nuclear Antibody Pattern TNP FOSTER Titer 2 TNP FOSTER Pattern 2 TNP FOSTER Titer 3 TNP FOSTER Pattern 3 TNP Mitochondrial Antibody Reviewed date:07/12/2025 11:56:19 PM Interpretation: Performing Lab:[facility], [address] [place] [phone] Notes/Report: Mitochondrial Antibodies NEGATIVE NEGATIVE THIS TEST WAS PERFORMED AT: [facility] [address] [place] [phone] ALESSANDRO MALONE MD Mitochondrial Ab Titer TNP Smooth Muscle Antibody Reviewed date:07/12/2025 11:56:09 PM Interpretation: Performing Lab:[facility], [address] [place] [phone] Notes/Report: Smooth Muscle Antibody <20 <20 U [...] type 1. THIS TEST WAS PERFORMED AT: [email or web address] NATHALIE HERR MD,PHD Hepatitis B,C Profile Reviewed date:07/05/2025 10:32:28 PM Interpretation: Performing Lab:[facility], [address] [place] [phone] Notes/Report: Hepatitis B Surface Antibody NONREACTIVE Nonreactive Nonreactive: < 8.00 mIU/mL Hepatitis B Core Antibody Nonreactive Nonreactive Hepatitis C Antibody Nonreactive Nonreactive Antibodies to HCV not detected; does not exclude early acute HCV infection. Hepatitis B Surface Antigen Negative Negative Complete Blood Count Auto Di ff Reviewed date:07/13/2025 12:00:21 AM Interpretation: Performing Lab:[facility], [address] [place] [phone] Notes/Report: White Blood Count 5.5 4.8-10.8 X10*3/uL [...] Panel Reviewed date:07/05/2025 10:31:29 PM Interpretation: Performing Lab:[facility], [address] [place] [phone] Notes/Report: Bilirubin Total 0.4 0.0-1.0 mg/dL Bilirubin Direct 0.2 0.0-0.5 mg/dL Aspartate Amino Transferase 21 5-31 U/L Alanine Aminotransferase 25 0-31 U/L Total Protein 6.9 6.5-8.0 g/dL Albumin Level 4.4 3.5-5.0 g/dL Alkaline Phosphatase 71 39-117 U/L IRON PROFILE Reviewed date:07/12/2025 11:58:07 PM Interpretation: Performing Lab:[facility], [address] [place] [phone] Notes/Report: Iron 78 30-160 mcg/dL Total Iron Binding Capacity 275 228-428 mcg/d L Percent Iron Saturation 28 15-50 % Unsaturated Iron Binding 197 Hemoglobin A1c Reviewed date:07/05/2025 10:30:45 PM Interpretation: Performing Lab:[facility], [address] [place] [phone] Notes/Report: Hemoglobin A1c % 6.1 <6.0 % [...] average glucose, using the formula of the X5G-Jgwzluu Average Glucose study (ADAG), Diabetes Care, Vol.31,#8, [...] Status Risk Notes Problem Colon cancer screening (224873871) Colon cancer screening (Z12.11) Active confirmed Problem Fatty liver (544704946) Fatty liver (K76.0) Active confirmed Problem History of adenomatous polyp of colon (103032660) History of adenomatous polyp of colon (Z86.0101) Active confirmed Vital Signs Blood pressure diastolic 77 mm Hg 07/02/2025 Height 63 in 07/02/2025 Blood pressure systolic 111 mm Hg 07/02/2025 Weight 163 lbs 07/02/2025 BMI 28.87 kg/m2 07/02/2025 Encounters Encounter Location Date Provider Diagnosis [facility] [address] [place] [phone] 07/02/2025 Alvarado Mccoy Fatty liver K76.0 ; History of adenomatous polyp of colon Z86.0101 and Colon cancer screening Z12.11 [facility] [address] [place] [phone] 07/02/2025 Alvarado Mccoy [facility] [address] [place] [phone] 07/12/2025 Alvarado Mccoy Assessments Encounter Date Diagnosis [...] End Date MEDICARE OF [place] [address] [place] [address] [phone] [id number] DOUGLAS CARMEN Self - patient is the insured [address] [facility] [address] [place] [address] [id number] VIDALHALEY DOUGLAS Aquino Self - patient is the insured 5 Medical (General) History Medical History History ICD Code NIDDM hypertension GERD neuropathy urinary incontenence- stress induced degenerative disease lumbosacral spine Fatty liver but normal LFT's and imaging in 2024 seasonal allergies Diverticulitis IBS Denies MD,CVA,Lung disease,renal disease Tubular adenomas with previo us colonoscopies by Dr. Mora. Her most recent exam was in January 2024 with a removal of a small tubular adenoma Surgical History Surgery Date(Month/Year) cholecystectomy
--- OUTSIDE RECORDS SUMMARY | 2025-07-28 15:56 | XMS_ITS | Encounter Summary ---
Author Organization [facility] Address [address] [place] [address] Care Team Providers Care Centrifugal Chiller Technician Name Role Phone Best Suh MD Primary Care Provider [phone] Encounter Details Date Type Department Care Team (Late st Contact Info) Description 03/18/2025 Lab Requisition [facility] - Main Lab [address] [facility] [place] [address] Jodi Santillan NP [address] [facility] [address] [place] [address] Dysuria Social History Tobacco Use Types Packs/Day [...] Normal Urogenital julien. 03/18/2025 11:49 AM EDT [facility]) [facility] Other Urine specimen from urethra / Unknown 03/17/2025 03/18/2025 10:43 AM EDT us Jodi Santillan TILE GRINDER LAB MICROBIOLOGY - GENERA L ORDERABLES Final Result [facility] ([facility]) [facility] [address] [place] [address], [place] [phone] documented in this encounter Visit Diagnoses Diagnosis Dysuria documented in this encounter Care Teams Centrifugal Chiller Technician Relationship Specialty Start Date End Date Best Suh MD [address] [place] [address] Dr [place] PCP - General 10/31/12 documented as of this encounter
--- OUTSIDE RECORDS SUMMARY | 2025-07-28 15:56 | XMS_ITS | Patient Health Record ---
Author Organization [facility] Address [address] [facility] [place] [address] Care Team Providers Care Bow Stapler Name Role Phone Best Suh MD Primary Care Provider Unavaila Luiz Diaz Unavailable [phone] Allergies Allergen (clinical drug ingredient) Drug/Non Drug [...] 90 Active Ciclopirox 0.77 % 1 application Program Engineer ally to affected toenails Twice a day; [...] Treatment Pending Test Test Name Order Date 69016 I&D ABSCESS- SIMPLE,SINGLE 023 Insurance Providers Payer Name Payer Address Payer Phone Subscriber Number Group Number Insured Name Patient Relationship to Insured Coverage Start Date Coverage End Date Medicare National [employer]t S[employer] [address] [place] [address] [id number] Olman Hurst i Self - patient is the insured [facility] [address] [place] [address] [phone] [id number] Olman Hurst i Self - patient is the insured Medical (General) History Medical History History ICD Code Arthritis Back,Hip,and Knee pain Cataracts Diverticulosis Neuropathy Headaches/Migraines Osteoporosis Poor circulation chronic sinusitis Surgical History Surgery Date(Month/Year) cholecystectomy 1990
== END 2025-07-28 14:10 | disposition home or self-care (01) ==
LOC: HO.HPODS 13:27
PROVIDERS: PCP Internal Medicine; Visit Provider Student in an Organized Health Care Education/Training Program
DX: R25.2 Cramp and spasm (principal); G62.9 Polyneuropathy, unspecified; M51.369 Other intervertebral disc degeneration, lumbar region without mention of lumbar back pain or lower extremity pain; B35.1 Tinea unguium
CPT/HCPCS: 11755; 99204

== ENCOUNTER 2025-07-28 14:56 | Outpatient (REF) | payer MEDICARE, OTHER, SELFPAY | END 2025-07-28 14:57 | disposition home or self-care (01) | LOC: HO.LNP 14:56 | PROVIDERS: Visit Provider Student in an Organized Health Care Education/Training Program | DX: B35.1 Tinea unguium (principal) | CPT/HCPCS: 87101; 87220; 88304; 88312 ==

== ENCOUNTER 2025-07-28 14:56 | Outpatient (REF) | payer MEDICARE, OTHER, SELFPAY | END 2025-07-28 14:57 | disposition home or self-care (01) | LOC: HO.LAB 14:56 | PROVIDERS: Visit Provider Student in an Organized Health Care Education/Training Program | DX: Z13.89 Encounter for screening for other disorder (principal) ==

== ENCOUNTER 2025-09-07 13:00 | Outpatient (AMB) | payer MEDICARE, OTHER, SELFPAY ==
[2025-09-07 13:09] VITALS: BMI 28.4
--- NOTE | 2025-09-07 13:09 | MHC.AMNUTRGE ---
VS Expanded 09/07/25 13:09 09/09/25 14:18 Height 5 ft 3 in 5 ft 3 in Weight 160 lb 7.944 oz 160 lb BMI 28.4 28.3 Intake Visit Reasons: T2DM Allergies ciprofloxacin (CIPROFLOXACIN) Allergy (Intermediate, Verified 07/28/25 13:33) RASH Nutrition Presentation Details: Pt presents for MNT for T2DM Pt dx with T2DM 4-5 m ago Pt reports working on reducing sugars , has lost 10-13 lbs since 04/2026 Reports choosing lactose free foods r/t gassiness physical activity walking 30 minutes /day food frequency including fish 2 times/week fruits 1-3/d veg:daily starches: working on choosing whole grains dairy: 1-2/d lactose free b: sourdough bread with avocado and cottage cheese lactose free or cheerios with 1/2 banana and berries, almond milk L: soup or salad or fruit Dinner: meat and roasted veggies (cauliflower, pepper, carrots, spinach choosing lower sugar snacks outshine bars beverages: water, tea , milk , 24-26 oz fluid/d BS Monitoring Most Recent Diabetes Results: Creatinine, (0.5-1.4) 0.80 mg/dL 07/10/25 BUN, (9-16) 21 mg/dL H 07/10/25 Sodium, (135-145) 141 mmol/L 07/10/25 Potassium, (3.3-5.1) 4.2 mmol/L 07/10/25 Chloride, (96-108) 105 mmol/L 07/10/25 Carbon Dioxide, (22-29) 27 mmol/L 07/10/25 Calcium, (8.4-10.2) 9.5 mg/dL 07/10/25 VIT-Npkbegz-Oh.Jeor Equation Height: 5 ft 3 in Weight: 160 lb Resting Metabolic Rate: 1214.83 Calculated Activity Level: Mild Activity Calories Needed to Maintain Weight: 1670.39 Diagnosis Nutrition problem #1: food nutri know defi As related to (etiology) #1: diagnosis As evidenced by (sign/symptom) #1: knowledge deficit of diet [facility] Medical History Hepatomegaly Lumbar degenerative disc disease Type 2 diabetes mellitus Neuropathy Surgical History History of colonoscopy (~01/21/24) Family History Mother Dementia Afib Arthritis Mental health disorder Father Gastric cancer Social History Housing: House Alcohol intake: current Alcohol intake frequency: does not drink Patient Tobacco Use Status: Never used Tobacco e-Cigarette/Vaping Use: Never Used service: No Current occupational status: retired Cognitive needs: No Hearing needs: No Vision needs: Yes (rx glasses) Assessment & Plan Assessment & Plan (1) Type 2 diabetes mellitus: Code(s): E11.9 - Type 2 diabetes mellitus without complications Category: Medical Plan: current wt: 73 kg ( 09/12 ) est kcal needs as per MSJ: 1700 est protein needs as per 1 g/kg BW: 70 est fluid needs as per 30 ml/kg BW: 2200 Recommended fiber > 12 g /day and gradually increase up to 25-28 g /day or as tolerated Nutrition topics discussed : Reviewed (R), Pt verbalized understanding (V) , not applicable (N/A) R, : Healthy Plate Method Concept: R, : Carbohydrates: food sources of carbohydrates, relationship of carbohydrates to blood glucose, fatty liver GI health. Recommended total amount of carbohydrates per meals and snack. Differences between simple carbohydrates and complex carbohydrates R, : Lean protein foods including vegan , vegetarian sources of protein. Benefits of protein (including but not limited to healing, nutritional value , benefits in weight loss, glucose control R, V, N/A: Fats : Source of fats, benefits of fats. Difference between saturated and unsaturated fats. Saturated fats and its contribution to inflammation R, : Fiber: food sources and role of fiber in the diet (including but not limited to its role as a prebiotic, benefits in constipation, role in IBS , role in glucose control and cholesterol level) R, : Hydration: role of hydration and prevention of dehydration or over hydration. Foods and water content. R, V, N/A: Vitamins and Minerals in foods and supplements R, : Interpreting food labels, including serving size, macronutrients, vitamins, minerals, allergens, ingredient list , % daily value Patient Instructions: Continue following healthy plate method Choose whole grain foods/fiber rich foods :100% whole wheat, oats, bran cereals, fruits/veg Coding Level of Care Code Nutr Indiv Intake (88819) Diagnoses Type 2 diabetes mellitus E11.9 Time Spent (min) 30
[2025-09-10 08:33] VITALS: BMI 28.3
== END 2025-09-07 14:12 | disposition home or self-care (01) ==
LOC: HO.ENCR 13:00
PROVIDERS: PCP Internal Medicine; Visit Provider Dietitian, Registered
DX: E11.9 Type 2 diabetes mellitus without complications (principal)

== ENCOUNTER → 2025-09-07 13:00 | Outpatient (BNVA) | payer MEDICARE, OTHER, SELFPAY | PROVIDERS: PCP Internal Medicine; Visit Provider Dietitian, Registered | DX: E11.9 Type 2 diabetes mellitus without complications (principal); Z71.3 Dietary counseling and surveillance | CPT/HCPCS: 97802 ==

== ENCOUNTER 2025-09-17 14:55 | Outpatient (REF) | payer MEDICARE, OTHER, SELFPAY ==
--- NOTE | ~2025-09-17 | US_ITS ---
EXAMINATION: COLOR-FLOW DUPLEX IMAGING OF THE BILATERAL LOWER EXTREMITY ARTERIAL SYSTEM. VELOCITY MEASUREMENTS THROUGHOUT THE FEMORAL ARTERIES. This study was performed at rest only. CLINICAL INFORMATION: R25.2 - Cramp and spasm RIGHT FEMORAL RUNOFF VELOCITIES: Minimal plaque. The right common femoral artery measures 70 cm/s and triphasic. The right profunda femoral artery is 73 cm/s and is triphasic. Right proximal superficial femoral artery measures 76 cm/s and triphasic. Mid superficial femoral artery is 71 cm/s and triphasic. Distal right superficial femoral artery measures 53 cm/s and is triphasic. Right popliteal velocity measures 72 cm/s and is triphasic. The posterior tibial artery velocity measures 60cm/s and is biphasic. The anterior tibial artery velocity measures 46 cm/s and is biphasic. Patent dorsalis pedis artery. LEFT FEMORAL RUNOFF VELOCITIES: Minimal plaque. The left common femoral artery measures 106 cm/s and biphasic. The right profunda femoral artery is 42 cm/s and is biphasic. Left proximal superficial femoral artery measures 76 cm/s and triphasic. Left mid superficial femoral artery is 60 cm/s and triphasic. Left distal superficial femoral artery measures 45 cm/s and is biphasic. Left popliteal velocity measures 58 cm/s and is triphasic. Left posterior tibial artery velocity measures 56 cm/s and is biphasic. The anterior tibial artery velocity measures 44 cm/s and is biphasic. Patent dorsalis pedis artery. US/US arterial duplex LE BI IMPRESSION: Mild atherosclerotic disease with abnormal biphasic waveforms in the bilateral anterior tibial and posterior tibial arteries, distal left superficial femoral artery and left profunda. Electronically signed by: Anastacia Cruz MD 09/17/2025 04:30 PM EDT
--- OUTSIDE RECORDS SUMMARY | 2025-09-17 17:48 | XMS_ITS | Encounter Summary ---
Author Organization [facility] Address [address] [place] [address] Care Team Providers Care Property Administrator Name Role Phone Best Suh MD Primary Care Provider [phone] Encounter Details Date Type Department Care Team (Late st Contact Info) Description 01/15/2025 Lab Requisition [facility] - Main Lab [address] [place] [address] [facility] & Sukumar Ob-Wafer Fab Operator Acute vaginitis Social History Tobacco Use [...] vaginalis Negative Negative 2025 12:12 PM EST [facility] Gardnerella vaginalis Negative Negative 2025 12:12 PM EST [facility] Angela Species Negative Negative 12:[address] [facility] Swab Vaginal structure / Unknown 01/15/2025 01/15/2025 7:31 PM EST us [facility] Sukumar O b-Wafer Fab Operator [facility] Fine LAB MICROBIOLOGY - GENERAL ORDERABLES Final Result [facility] ([facility] [address] [place] [address], documented in this encounter Visit Diagnoses Diagnosis Acute vaginitis Unspecified vaginitis and vulvovaginitis documented in this encounter Care Teams Property Administrator Relationship Specialty Start Date End Date Best Suh MD [address] [place] [address] Dr Ismael [place] PCP - General 10/31/12 documented as of this encounter
--- OUTSIDE RECORDS SUMMARY | 2025-09-17 17:48 | XMS_ITS | Clinical Summary ---
Author Organization [facility] 299 [facility] Address [address] [place] [address] Phone Care Team Providers Care Rag Willow Operator Name Role Phone Best Suh MD Primary Care Provider [phone] Allergies Active Allergy Reactions Criticality Noted Date [...] Team Description 07/27/2025 Telephone Gastroenterology - [address] [facility] 299 [facility] [address] [place] [address] Forest Espinosa MD 06/30/2025 Telephone Gastroenterology - [place] [address] [facility] [address] [place] [phone] Kandi Mcgrath [place] 06/24/2025 2:20 PM EDT Office Visit Gastroenterology - [address] [facility] [address] [facility] [address] [place] [phone] Forest Espinosa MD Right upper quadrant abdominal [...] Last Done Comments Breast Cancer Screening 1954 Colorectal Cancer Screening: Colonoscopy 1954 DTaP,Tdap,and Td Vaccines (1 - Tdap) 1973 Pneumococcal Vaccine: 50+ Years (1 of 1 - PCV) 2004 Zoster Vaccines (1 of 2) 2004 Cholesterol Screening (Lipid Panel) 10/21/2022 Falls Risk Assessment 10/21/2022 Hepatitis C [...] quadrant abdominal pain Abnormal liver diagnostic imaging from Last 3 Months Results * TAM fibrotest liver diease (06/24/2025 3:09 PM EDT) Pathologist [facility] TAM FibroSure See Below 07/02/2025 1:38 PM EDT [facility] Comment: TAM FibroSure(R) Plus SEE REPORT UNDER SEPARATE COVER. REPORT WILL BE SENT TO THE ORDERING LABORATORY VIA PRINTER OR FAX. ADDITIONAL COPIES OF THE ORIGINAL REPORT MAY ALSO BE OBTAINED BY CALLING [facility] at [phone] Blood Venous blood specimen / Unknown Venipuncture / Unknown 06/24/2025 3:09 PM EDT 06/24/2025 3:20 PM EDT us Forest Espinosa MD LAB BLOOD ORDERABLES Edited Result - Final [facility] [address] [place] [address] * CBC auto differential (06/24/2025 3:09 PM EDT) [facility] WBC 8.0 4.8 - 10.8 K/mcL LAB HEMETOLOGY METHOD 06/24/2025 3:31 PM EDT [facility] RBC 4.80 3.80 - 4.80 M/mcL LAB HEMETOLOGY METHOD 06/24/2025 3:31 PM EDT [facility] Hemoglobin 13.4 11.5 - 16.0 g/dL LAB HEMETOLOGY METHOD 06/24/2025 3:31 PM EDT [facility] Hematocrit 40.3 35.0 - 47.0 % LAB HEMETOLOGY METHOD 06/24/2025 3:31 PM EDT [facility] MCV 84.5 79.0 - 98.0 FL LAB HEMETOLOGY METHOD 06/24/2025 3:31 PM EDT [facility] MCH 28.1 27.0 - 32.0 pcg LAB HEMETOLOGY METHOD 06/24/2025 3:[facility] MCHC 33.3 32.0 - 37.0 g/dL LAB HEMETOLOGY METHOD 06/24/2025 3:31 PM EDT [facility] RDW 12.6 11.0 - 15.0 % LAB HEMETOLOGY METHOD 06/24/2025 3:31 PM [facility] Platelets 260 130 - 400 K/mcL LAB HEMETOLOGY METHOD 06/24/2025 3:31 PM [facility] MPV 10.0 7.0 - 11.0 FL LAB HEMETOLOGY METHOD 06/24/2025 3:31 PM EDT [facility] NRBC 0.0 <1.0 % LAB HEMETOLOGY METHOD 06/24/2025 3:31 PM [facility] NRBC Absolute 0.00 <0.10 K/mcL LAB HEMETOLOGY METHOD 06/24/2025 3:31 PM [facility] Neutrophils Relative 52.9 % LAB HEMETOLOGY METHOD 06/24/2025 3:31 PM EDT [facility] Lymphocytes Relative 31.3 % LAB HEMETOLOGY METHOD 06/24/2025 3:31 PM EDT [facility] Monocytes Relative 11.1 % LAB HEMETOLOGY METHOD 06/24/2025 3:31 PM EDT [facility] Eosinophils Relative 3.1 % LAB HEMETOLOGY METHOD 06/24/2025 3:31 PM [facility] Basophils Relative 1.3 % LAB HEMETOLOGY METHOD 06/24/2025 3:31 PM EDT [facility] Immature Granulocytes Relative 0.3 % LAB HEMETOLOGY METHOD 06/24/2025 3:31 PM EDT [facility] Neutrophils Absolute 4.21 1.50 - 7.00 K/mcL LAB HEMETOLOGY METHOD 06/24/2025 3:31 PM EDT [facility] Lymphocytes Absolute 2.49 1.00 - 5.00 K/mcL LAB HEMETOLOGY METHOD 06/24/2025 3:31 PM EDT [facility] Monocytes Absolute 0.88 0.20 - 1.00 K/mcL LAB HEMETOLOGY METHOD 06/24/2025 3:31 PM EDT [facility] Eosinophils Absolute 0.25 0.00 - 0.50 K/mcL LAB HEMETOLOGY METHOD 06/24/2025 3:31 PM EDT [facility] Basophils Absolute 0.10 0.00 - 0.20 K/mcL LAB HEMETOLOGY METHOD 06/24/2025 3:31 PM EDT [facility] Immature Granulocytes Absolute 0.02 0.00 - 0.03 K/mcL LAB HEMETOLOGY METHOD 06/24/2025 3:31 PM EDT [facility] Blood Venous blood specimen / Unknown Venipuncture / Unknown 06/24/2025 3:09 PM EDT 06/24/2025 3:20 PM EDT us Forest Espinosa MD LAB BLOOD ORDERABLES Final Result [facility] [address] [place] [address], * Comprehensive metabolic panel (06/24/2025 3:09 PM EDT) Sodium 137 133 - 145 mmol/L LAB CHEMISTRY METHOD 06/24/2025 4:25 PM EDT [facility] Potassium 3.7 3.5 - 5.5 mmol/L LAB CHEMISTRY METHOD 06/24/2025 4:25 PM [facility] Chloride 105 96 - 110 mmol/L LAB CHEMISTRY METHOD 06/24/2025 4:25 PM [facility] CO2 29 21 - 32 mmol/L LAB CHEMISTRY METHOD 06/24/2025 4:25 PM [facility] Anion Gap 3 3 - 11 LAB CHEMISTRY METHOD 06/24/2025 4:25 PM [facility] Glucose 79 70 - 100 mg/dL LAB CHEMISTRY METHOD 06/24/2025 4:25 PM [facility] BUN 21 5 - 25 mg/dL LAB CHEMISTRY METHOD 06/24/2025 4:25 PM [facility] Creatinine 0.92 0.50 - 1.10 mg/dL LAB CHEMISTRY METHOD 06/24/2025 4:25 PM [facility] eGFR 67 >=60 mL/min/1. 73m2 LAB CHEMISTRY METHOD 06/24/2025 4:25 PM [facility] Comment:Calculation based on the Chronic Kidney Disease Epidemiology Collaboration (CKD-EPI) equation refit without adjustment for race. BUN/Creatinine Ratio 22.8 LAB CHEMISTRY METHOD 06/24/2025 4:25 PM [facility] Calcium 9.7 8.5 - 10.5 mg/dL LAB CHEMISTRY METHOD 06/24/2025 4:25 PM [facility] AST (SGOT) 21 10 - 42 unit/L LAB CHEMISTRY METHOD 06/24/2025 4:25 PM [facility] ALT (SGPT) 25 10 - 60 unit/L LAB CHEMISTRY METHOD 06/24/2025 4:25 PM [facility] Alkaline Phosphatase 79 42 - 121 unit/L LAB CHEMISTRY METHOD 06/24/2025 4:25 PM [facility] Total Protein 7.2 6.0 - 8.0 g/dL LAB CHEMISTRY METHOD 06/24/2025 4:25 PM EDT [facility] Albumin 4.2 3.2 - 5.0 g/dL LAB CHEMISTRY METHOD 06/24/2025 4:25 PM EDT [facility] Total Bilirubin 0.6 0.0 - 1.4 mg/dL LAB CHEMISTRY METHOD 06/24/2025 4:25 PM EDT [facility] Blood Venous blood specimen / Unknown Venipuncture / Unknown 06/24/2025 3:09 PM EDT 06/24/2025 3:21 PM EDT us Forest Espinosa MD LAB BLOOD ORDERABLES Final Result [facility] [address] [place] [address], from Last 3 Months Insurance MEDICARE [facility] Care Teams Rag Willow Operator Relationship Specialty Start Date End Date Best Suh MD [address] [place] [address] Dr Ismael [place] PCP - General 10/31/12
--- OUTSIDE RECORDS SUMMARY | 2025-09-17 17:48 | XMS_ITS | Patient Health Record ---
Author Organization [facility] reymundo Rutherford[facility] Address [address] [facility] [place] [address] Care Team Providers Care Tricot Knitter Name Role Phone Best Suh MD Primary Care Provider Unavaila Luiz Diaz Unavailable [phone] Allergies Allergen (clinical drug ingredient) Drug/Non Drug [...] 90 Active Ciclopirox 0.77 % 1 application Proof Coin Collector ally to affected toenails Twice a day; [...] Treatment Pending Test Test Name Order Date 65489 I&D ABSCESS- SIMPLE,SINGLE 023 Insurance Providers Payer Name Payer Address Payer Phone Subscriber Number Group Number Insured Name Patient Relationship to Insured Coverage Start Date Coverage End Date Medicare National Govt Sv[employer] [address] [place] [address] [id number] Olman Hurst i Self - patient is the insured [facility] [address] [place] [address] [phone] [id number] Olman Hurst i Self - patient is the insured Medical (General) History Medical History History ICD Code Arthritis Back,Hip,and Knee pain Cataracts Diverticulosis Neuropathy Headaches/Migraines Osteoporosis Poor circulation chronic sinusitis Surgical History Surgery Date(Month/Year) cholecystectomy 1990
--- OUTSIDE RECORDS SUMMARY | 2025-09-17 17:48 | XMS_ITS | Encounter Summary ---
Author Organization [facility] Address [address] [place] [address] Care Team Providers Care Platform Engineer Name Role Phone Best Suh MD Primary Care Provider [phone] Encounter Details Date Type Department Care Team (Late st Contact Info) Description 02/13/2025 Lab Requisition [facility] - Main Lab [address] [place] [phone] Isidro Rios MD [address] [address] Dysuria Social History Tobacco Use Types Packs/Day [...] if clinically indicated. 02/14/2025 10:36 AM EDT [facility] Other Urine specimen from urethra / Unknown 02/12/2025 02/13/2025 10:36 AM EDT us Isidro Rios MD LAB MICROBIOLOGY - G ENERAL ORDERABLES Final Result [facility] [address] [place] [address], documented in this encounter Visit Diagnoses Diagnosis Dysuria documented in this encounter Care Teams Platform Engineer Relationship Specialty Start Date End Date Best Suh MD [address] [place] [address] Dr Ismael [place] PCP - General 10/31/12 documented as of this encounter
--- OUTSIDE RECORDS SUMMARY | 2025-09-17 17:48 | XMS_ITS | Encounter Summary ---
Author Organization [facility] Address [address] [place] [address] Care Team Providers Care Ship Manager Name Role Phone Best Suh MD Primary Care Provider [phone] Encounter Details Date Type Department Care Team (Late st Contact Info) Description 03/18/2025 Lab Requisition [facility] - Main Lab [address] [facility] [place] [address] Jodi Santillan NP [address] [facility] [address] [place] [address] Dysuria Social History Tobacco Use Types Packs/Day [...] Normal Urogenital julien. 03/18/2025 11:49 AM EDT [facility]) [facility] Other Urine specimen from urethra / Unknown 03/17/2025 03/18/2025 10:43 AM EDT us Jodi Santillan STATISTICAL MACHINE MECHANIC LAB MICROBIOLOGY - GENERA L ORDERABLES Final Result [facility] ([facility]) [facility] [address] [place] [address], [place] [phone] documented in this encounter Visit Diagnoses Diagnosis Dysuria documented in this encounter Care Teams Ship Manager Relationship Specialty Start Date End Date Best Suh MD [address] [place] [address] Dr Simpson [place] PCP - General 10/31/12 documented as of this encounter
--- OUTSIDE RECORDS SUMMARY | 2025-09-17 17:48 | XMS_ITS | Patient Health Record ---
Author Organization [facility] Address [address] [place] [address] Care Team Providers Care Skills Trainer Name Role Phone VALENTE CAMARA Primary Care Provider Alvarado Barrett [phone] Allergies Allergen (clinical drug ingredient) Drug/Non Drug Allergy documented on EMR Reaction Allergy Type Onset Date Status ciprofloxacin Cipro Unknown Drug Allergy Act ericka Results Component Value Reference Range Notes Prothrombin Time INR Reviewed date:07/12/2025 11:57:12 PM Interpretation: Performing Lab:[facility] [address] [place] [phone] Notes/Report: Prothrombin Time 11.8 10.9-12.4 SEC INTERNATIONAL [...] Ferritin Reviewed date:07/12/2025 11:57:03 PM Interpretation: Performing Lab:[facility], [address] [place] [phone] Notes/Report: Ferritin 269 10-250 ng/mL Alpha 1 Anti-trypsin Reviewed date:07/12/2025 11:56:35 PM Interpretation: Performing Lab:[facility], [address] [place] [phone] Notes/Report: Alpha 1 Anti-trypsin 163 83-199 mg/dL THIS TEST WAS PERFORMED AT: [facility] [address] [place] [phone] ALESSANDRO MALONE MD Liver Fibrosis Pnl Reviewed date:07/12/2025 11:56:52 PM Interpretation: Performing Lab:[facility], [address] [place] [phone] Notes/Report: Liver Fibrosis Score 0.21 Liver Fibrosis [...] a>0.62 and a<=1.00 : A3 (severe activity) KZE-Nhmcy-5-Macroglobulin 176 106-279 mg/dL FIB-Haptoglobin 91 43-212 mg/dL FIB-Apolipoprotein A1 139 101-198 mg/dL FIB-Total Bilirubin 0.3 0.2-1.2 mg/dL FIB-GGT 28 3-65 U/L FIB-ALT 17 6-29 U/L Reference ID [id number] Footnote SEE NOTE The reliability of results is dependent on compliance with the preanalytical and analytical conditions recommended by [employer]. The tests have to be deferred for: [...] The performance characteristics have been determined by [facility]. It has not been cleared or approved by the U.S. Food and Drug Administration. Performance characteristics refer to the analytical performance of the test. A [employer], [employer], the associated logo, [employer] and all associated [employer] morales are the registered trademarks of [employer]. All third republican morales - (R) and (TM) - are the property of their respective owners. (C) 7994-4100 [employer]. All rights reserved. THIS TEST WAS PERFORMED AT: [employer] [facility] [address] [place] [address] ADELA BORJAS MD,PHD,PETER FOSTER Reflex Titer and Pattern Reviewed date:07/12/2025 11:56:27 PM Interpretation: Performing Lab:[facility], [address] [place] [phone] Notes/Report: Anti Nuclear Antibody Screen NEGATIVE NEGATIVE [...] Negative International Consensus on FOSTER Patterns (https://doi.org/10.1515/c eem-3018-7167) For additional information, please refer to http://education.Grand [employer]us/faq/OMO667 (This link is being provided for informational/ educational purposes only.) THIS TEST WAS PERFORMED AT: [address] [address] [place] [phone] ALESSANDRO MALONE MD Anti Nuclear Antibody Titer TNP Anti Nuclear Antibody Pattern TNP FOSTER Titer 2 TNP FOSTER Pattern 2 TNP FOSTER Titer 3 TNP FOSTER Pattern 3 TNP Mitochondrial Antibody Reviewed date:07/12/2025 11:56:19 PM Interpretation: Performing Lab:[facility], [address] [place] [phone] Notes/Report: Mitochondrial Antibodies NEGATIVE NEGATIVE THIS TEST WAS PERFORMED AT: [address] [address] [place] [phone] ALESSANDRO MALONE MD Mitochondrial Ab Titer TNP Smooth Muscle Antibody Reviewed date:07/12/2025 11:56:09 PM Interpretation: Performing Lab:[facility], [address] [place] [phone] Notes/Report: Smooth Muscle Antibody <20 <20 U [...] type 1. THIS TEST WAS PERFORMED AT: [employer] NATHALIE HERR MD,PHD Hepatitis B,C Profile Reviewed date:07/05/2025 10:32:28 PM Interpretation: Performing Lab:[facility], [address] [place] [phone] Notes/Report: Hepatitis B Surface Antibody NONREACTIVE Nonreactive Nonreactive: < 8.00 mIU/mL Hepatitis B Core Antibody Nonreactive Nonreactive Hepatitis C Antibody Nonreactive Nonreactive Antibodies to HCV not detected; does not exclude early acute HCV infection. Hepatitis B Surface Antigen Negative Negative Complete Blood Count Auto Di ff Reviewed date:07/13/2025 12:00:21 AM Interpretation: Performing Lab:[facility], [address] [place] [phone] Notes/Report: White Blood Count 5.5 4.8-10.8 X10*3/uL [...] Panel Reviewed date:07/05/2025 10:31:29 PM Interpretation: Performing Lab:[facility], [address] [place] [phone] Notes/Report: Bilirubin Total 0.4 0.0-1.0 mg/dL Bilirubin Direct 0.2 0.0-0.5 mg/dL Aspartate Amino Transferase 21 5-31 U/L Alanine Aminotransferase 25 0-31 U/L Total Protein 6.9 6.5-8.0 g/dL Albumin Level 4.4 3.5-5.0 g/dL Alkaline Phosphatase 71 39-117 U/L IRON PROFILE Reviewed date:07/12/2025 11:58:07 PM Interpretation: Performing Lab:[facility], [address] [place] [phone] Notes/Report: Iron 78 30-160 mcg/dL Total Iron Binding Capacity 275 228-428 mcg/d L Percent Iron Saturation 28 15-50 % Unsaturated Iron Binding 197 Hemoglobin A1c Reviewed date:07/05/2025 10:30:45 PM Interpretation: Performing Lab:[facility], [address] [place] [phone] Notes/Report: Hemoglobin A1c % 6.1 <6.0 % [...] average glucose, using the formula of the V0L-Pepcxna Average Glucose study (ADAG), Diabetes Care, Vol.31,#8, [...] Status Risk Notes Problem Colon cancer screening (453954758) Colon cancer screening (Z12.11) Active confirmed Problem Fatty liver (987811074) Fatty liver (K76.0) Active confirmed Problem History of adenomatous polyp of colon (352565288) History of adenomatous polyp of colon (Z86.0101) Active confirmed Vital Signs Blood pressure diastolic 77 mm Hg 07/02/2025 Height 63 in 07/02/2025 Blood pressure systolic 111 mm Hg 07/02/2025 Weight 163 lbs 07/02/2025 BMI 28.87 kg/m2 07/02/2025 Encounters Encounter Location Date Provider Diagnosis [facility] [address] [place] [phone] 07/02/2025 Alvarado Mccoy Fatty liver K76.0 ; History of adenomatous polyp of colon Z86.0101 and Colon cancer screening Z12.11 [facility] [address] [place] [phone] 07/02/2025 Alvarado Mccoy [facility] [address] [place] [phone] 07/12/2025 Alvarado Mccoy Assessments Encounter Date Diagnosis [...] End Date MEDICARE OF [place] [address] [place] [address] [phone] [id number] DOUGLAS CARMEN Self - patient is the insured [address] [facility] [place] [address] [place] [address] [id number] VIDALHALEY DOUGLAS Aquino Self - patient is the insured 5 Medical (General) History Medical History History ICD Code NIDDM hypertension GERD neuropathy urinary incontenence- stress induced degenerative disease lumbosacral spine Fatty liver but normal LFT's and imaging in 2024 seasonal allergies Diverticulitis IBS Denies VA,CVA,Lung disease,renal disease Tubular adenomas with previo us colonoscopies by Dr. Mora. Her most recent exam was in January 2024 with a removal of a small tubular adenoma Surgical History Surgery Date(Month/Year) cholecystectomy
== END 2025-09-17 14:56 | disposition home or self-care (01) ==
LOC: HO.US 14:55
PROVIDERS: PCP Internal Medicine; Visit Provider Student in an Organized Health Care Education/Training Program
DX: I70.212 Atherosclerosis of native arteries of extremities with intermittent claudication, left leg (principal); R25.2 Cramp and spasm
CPT/HCPCS: 93925

== ENCOUNTER → 2025-09-17 14:57 | Outpatient (BNV) | payer MEDICARE, OTHER, SELFPAY | PROVIDERS: PCP Internal Medicine; Visit Provider Radiology Diagnostic Radiology | DX: I70.203 Unspecified atherosclerosis of native arteries of extremities, bilateral legs (principal) | CPT/HCPCS: 93925 ==

== ENCOUNTER 2025-10-05 08:45 | Outpatient (REF) | payer MEDICARE, OTHER, SELFPAY ==
[2025-10-05 10:53] LABS: MANUAL DIFF FLAG NO
[2025-10-05 11:04] LABS: Hematocrit 44.1 % (37.0-47.0); Hemoglobin 14.5 g/dl (12.0-16.0); Imm Gran Abs Auto 0.02 X10*3/uL (0.00-0.03); Imm Gran Pct Auto 0.3 % (0.0-0.4); Lymphocytes Absolute Auto 2.3 X10*3/uL (1.2-4.9); Mean Corpuscular HGB Conc 32.9 g/dl (31.0-35.0); Mean Corpuscular Hemoglobin 28.0 pg (27.0-33.0); Mean Corpuscular Volume 85.3 fL (80.0-98.0); NRBC Abs Auto 0.000 X10*3/uL (0.0-0.012); NRBC Pct Auto 0.0 /100WBC (0.0-0.2); Platelet Count 265 X10*3/uL (160-400); Red Blood Count 5.17 X10*6/uL (4.20-5.50); White Blood Count 6.9 X10*3/uL (4.8-10.8)
[2025-10-05 11:25] LABS: Alanine Aminotransferase 20 U/L (0-31); Albumin Level 4.5 g/dL (3.5-5.0); Alkaline Phosphatase 80 U/L (39-117); Anion Gap 12 (12-20); Aspartate Amino Transferase 24 U/L (5-31); Blood Urea Nitrogen 21 mg/dL (9-16); Calcium 9.5 mg/dL (8.4-10.2); Carbon Dioxide 27 mmol/L (22-29); Chloride 107 mmol/L (96-108); Cholesterol 185 mg/dL (<200); Estimated Glomerular Filt Rate > 60; HDL Cholesterol 37 mg/dL (>40); Potassium 4.6 mmol/L (3.3-5.1); Sodium 141 mmol/L (135-145); Total Protein 7.2 g/dL (6.5-8.0); Triglycerides 144 mg/dL (<150)
== END 2025-10-05 08:46 | disposition home or self-care (01) ==
LOC: HO.10HDL 08:45
PROVIDERS: Visit Provider Physician Assistant
DX: E11.9 Type 2 diabetes mellitus without complications (principal); I10 Essential (primary) hypertension; R16.0 Hepatomegaly, not elsewhere classified
CPT/HCPCS: 36415; 80048; 80061; 80076; 82533; 83036; 85025

== ENCOUNTER 2025-10-07 14:10 | Outpatient (AMB) | payer MEDICARE, OTHER, SELFPAY ==
--- NOTE | 2025-10-07 13:32 | MHC.PC.OV ---
Vital Signs 10/07/25 14:15 Height 5 ft 3 in Weight 72.575 kg BMI 28.3 BP 116/74 Blood Pressure Location Lt brachial Position Sitting Respiration 18 Pulse 79 Pulse Source Pulse Oximeter Temp 98.5 F Temp Source Temporal Artery Scan Pulse Oximetry (%) 97 Oxygen Delivery Method Room Air Intake Visit Reasons: Discuss test results - see comments Unpaid Intern Required: No Accompanied by: Self / Same As Patient Allergies ciprofloxacin (CIPROFLOXACIN) Allergy (Intermediate, Verified 10/07/25 13:32) RASH Medication List - Last Reconciled 10/07/25 by ROB Butts aloe vera mg PO blood sugar diagnostic (FreeStyle Lite Strips) use to check blood sugars once daily blood-glucose meter (FreeStyle Lite Meter kit) Use to check fasting blood sugar every morning. Goal is less than 130 cholecalciferol (vitamin D3) 50 mcg PO DAILY ciclopirox 8% 1 appl topical BEDTIME 12 weeks estradiol 0.01%(0.1mg/gram) vaginal fexofenadine (Rachelle Allergy) 60 mg PO BID PRN hydrocortisone 2.5% topical PRN lancets (FreeStyle Lancets) use to check fasting blood sugar every morning. Goal is less than 130 losartan 50 mg PO BID 90 days omeprazole 20 mg PO DAILY Tobacco use date assessed: 03/18/25 Dental Screening Dental Screen Date: 03/18/25 HPI HPI Comments History of Present Illness Details 70-year-old female with history of hypertension, GERD, type 2 diabetes, lumbar degenerative disc disease, neuropathy presenting to the office today for follow up. She has a multitude of questions which unfortunately we were able to cover entirely, additional appointment recommended for further discussion on questions and concerns. Type 2 diabetes-hemoglobin A1c improved to 6.2%. She still has questions about the etiology and pathophysiology of type 2 diabetes. She reports that she read an article that a bacteria caused diabetes. Discussed that that is not a causative factor in the development of type 2 diabetes. Did discuss beta cell exhaustion. Has been closely watching her intake of sugar and carbohydrates and has done quite well and management. She was seen by endocrinology for diabetic teaching but has not schedule an appointment for further discussion. Right upper quadrant pain-has been seen by Gastroenterology and was re-referred given findings of fatty liver/hepatomegaly noted on abdominal ultrasound. Liver enzymes have normalized likely secondary to her dietary modifications. Despite this, continues to experience pain in the right upper quadrant. She does present [id number] homeopathic supplements. Discussed I am unable to provide much feedback regrding the supplement Hypertension-blood pressure is 116/74. Losartan 50 mg daily GERD-controlled with omeprazole. Following dietary recommendations Neuropathy-unclear etiology. Diabetes is well-controlled. Longstanding. Describes a burning in the bilateral feet, worse at night Dysuria/OAB-possibly interstitial cystitis. Has been following with senior search marketing analyst Onc at [facility] and urology group of [facility]. Had endometrial biopsy which was benign on review of consult note. She is s/p bladder sling by Dr. De La Rosa in 2008 but has had recurrence of symptoms. Has been using Estrace. Trial Gemtesa which was discontinued due to adverse side effects. Compliant with dietary recommendation Varicose veins-reviewed alternate sound of the lower extremities on the phone as well as in the office. She does have mild venous insufficiency and was referred to vascular surgery the appointment has not been scheduled LE neuropathy/cramps- Reports cramping in the left calf as well as prominent veins in the popliteal fossa with bilateral neuropathy. And review of podiatry note, they did discuss the possible etiology of foot cramps including peripheral vascular disease metabolic derangement, progression of lumbar radiculopathy/peripheral neuropathy. We did discuss that given how well controlled her diabetes is, now in prediabetic range, it is unlikely that the neuropathy as a complication of the diabetes. Most likely related to the lumbar radiculopathy while cramping could be related to the varicose veins/vascular disease. She is not interested in following back with our physicist astrophysics. He did also prescribe her ciclopirox for fungal nails. Health maintenance: Last colonoscopy 01/2024, due 01/2029 ROS: See HPI EXAM: Constitutional - Awake and Alert, No apparent distress Eyes - PERRL Respiratory - Normal lung expansion, Normal respiratory effort, No respiratory distress Skin - Warm/Dry Neurological - Alert & oriented x3 Psychological - flat affect [facility] Medical History Hepatomegaly Lumbar degenerative disc disease Type 2 diabetes mellitus Neuropathy Surgical History History of colonoscopy (~01/21/24) Family History Mother Dementia Afib Arthritis Mental health disorder Father Gastric cancer Social History Housing: House Alcohol intake: current Alcohol intake frequency: does not drink Patient Tobacco Use Status: Never used Tobacco e-Cigarette/Vaping Use: Never Used service: No Current occupational status: retired Cognitive needs: No Hearing needs: No Vision needs: Yes (rx glasses) Questionnaire Thrive Questionnaire Date Thrive assessed: 03/18/25 JEFFERY-7 AMB Questionnaire JEFFERY-7 Date JEFFERY - 7 assessed: 03/18/25 Source: Developed by Drs. Alvarado Pratt, Maria Esther Saucedo, Patricio Cherry and colleagues, with an educational silvia from [employer]. Physical exam (Primary Care) Vital Signs: Last Vital Signs Temp 98.5 F 10/07/25 14:15 Pulse 79 10/07/25 14:15 Resp 18 10/07/25 14:15 BP 116/74 10/07/25 14:15 Pulse Ox 97 10/07/25 14:15 Oxygen Delivery Method Room Air 10/07/25 14:15 BMI result Body Mass Index 28.3 Tobacco/Smoking Status: Tobacco use Status Tobacco use date assessed 03/18/25 10/07/25 13:33 Patient Tobacco Use Status Never used Tobacco 10/07/25 13:33 e-Cigarette/Vaping Use Never Used 10/07/25 13:33 Thrive Assessment: Date of Thrive Assessment Date Thrive assessed 03/18/25 10/07/25 13:33 Coding Level of Care Code Est Pt Level 4 (35914) Complex visit Add On G2211 Diagnoses HTN (hypertension) I10 Type 2 diabetes mellitus E11.9 Hepatomegaly R16.0 Leg heaviness R29.898 Neuropathy G62.9 Assessment & Plan Assessment & Plan (1) HTN (hypertension): Code(s): I10 - Essential (primary) hypertension Category: Medical Plan: Controlled. Continue losartan 50 mg twice daily (2) Type 2 diabetes mellitus: Code(s): E11.9 - Type 2 diabetes mellitus without complications Category: Medical Plan: Well-controlled, now in prediabetic range. Continue with diabetic diet and follow-up with endocrinology as scheduled. Discussions on etiology and pathophysiology of type 2 diabetes as noted in HPI (3) Hepatomegaly: Code(s): R16.0 - Hepatomegaly, not elsewhere classified Category: Medical Plan: Liver enzymes have normalized. However she is concerned about ongoing right upper quadrant pain. Advised to reach out to Gastroenterology as she was previously referred. Referral provided to patient (4) Leg heaviness: Code(s): R29.898 - Other symptoms and signs involving the musculoskeletal system Category: Medical Plan: Does have peripheral vascular disease. Compression stockings, leg elevation. She was previously referred to vascular surgery and is advised to schedule an appointment. Referral provided to patient (5) Neuropathy: Code(s): G62.9 - Polyneuropathy, unspecified Category: Medical Plan: Suspect this is related to lumbar radiculopathy, she is not interested in returning to podiatry at this time. Discussed that is unlikely that this is related to type 2 diabetes. Vitamin B12 and folic acid levels within normal limits. Plan Follow-up in the office for further discussion on questions that remain unanswered for 30 minute visit. Unfortunately despite additional time allotted for today's visit over appointment time, all questions could not be reviewed and answered. Following this appt as mentioned, can then see each other every 4 months or as needed Medications: Refilled blood sugar diagnostic (FreeStyle Lite Strips) use to check blood sugars once daily 100 ea 1RF E11.9 - Type 2 diabetes mellitus without complications lancets (FreeStyle Lancets) use to check fasting blood sugar every morning. Goal is less than 130 100 ea 1RF
[2025-10-07 14:15] VITALS: BP 116/74; PULSE 79; RESP 18; TEMP 36.9; O2SAT 97; BMI 28.3
--- OUTSIDE RECORDS SUMMARY | 2025-10-08 02:40 | XMS_ITS | Patient Health Record ---
Author Organization [facility] [place] Address [address] [place] [address] Care Team Providers Care Sales Appointment Coordinator Name Role Phone Best Suh MD Primary Care Provider Unavaila Luiz Diaz Unavailable [phone] Allergies Allergen (clinical drug ingredient) Drug/Non Drug [...] 90 Active Ciclopirox 0.77 % 1 application Sheet Rock Finisher ally to affected toenails Twice a day; [...] Treatment Pending Test Test Name Order Date 24565 I&D ABSCESS- SIMPLE,SINGLE 023 Insurance Providers Payer Name Payer Address Payer Phone Subscriber Number Group Number Insured Name Patient Relationship to Insured Coverage Start Date Coverage End Date Medicare National Govt Sv[employer] [address] [place] [address] [id number] Olman Hurst i Self - patient is the insured [facility] [address] [place] [address] [id number] Olman Hurst i Self - patient is the insured Medical (General) History Medical History History ICD Code Arthritis Back,Hip,and Knee pain Cataracts Diverticulosis Neuropathy Headaches/Migraines Osteoporosis Poor circulation chronic sinusitis Surgical History Surgery Date(Month/Year) cholecystectomy 1990
--- OUTSIDE RECORDS SUMMARY | 2025-10-08 02:41 | XMS_ITS | Patient Health Record ---
Author Organization [facility] Address [address] [place] [address] Care Team Providers Care Sliver Cutter Name Role Phone VALENTE CAMARA Primary Care Provider Alvarado Barrett [phone] Allergies Allergen (clinical drug ingredient) Drug/Non Drug Allergy documented on EMR Reaction Allergy Type Onset Date Status ciprofloxacin Cipro Unknown Drug Allergy Act ericka Results Component Value Reference Range Flag Notes Prothrombin Time INR Reviewed date:07/12/2025 11:57:12 PM Interpretation: Performing Lab:[address] [phone] Notes/Report: Prothrombin Time 11.8 10.9-12.4 SEC N INTERNATIONAL NORM RATIO 1.0 0.9-1.1 N INTERNATIONAL NORMALIZED RATIO (INR) REFERENCE RANGES Reference [...] Ferritin Reviewed date:07/12/2025 11:57:03 PM Interpretation: Performing Lab:[facility], [address] [place] [phone] Notes/Report: Ferritin 269 10-250 ng/mL H Alpha 1 Anti-trypsin Reviewed date:07/12/2025 11:56:35 PM Interpretation: Performing Lab:[address] [address] Notes/Report: Alpha 1 Anti-trypsin 163 83-199 mg/dL N THIS TEST WAS PERFORMED AT: [facility] [address] [phone] ALESSANDRO MALONE MD Liver Fibrosis Pnl Reviewed date:07/12/2025 11:56:52 PM Interpretation: Performing Lab:[facility], [address] [place] [phone] Notes/Report: Liver Fibrosis Score 0.21 Liver Fibrosis [...] a>0.62 and a<=1.00 : A3 (severe activity) HJQ-[id number]-5-Macroglobulin 176 106-279 mg/dL FIB-Haptoglobin 91 43-212 mg/dL FIB-Apolipoprotein A1 139 101-198 mg/dL FIB-Total Bilirubin 0.3 0.2-1.2 mg/dL FIB-GGT 28 3-65 U/L FIB-ALT 17 6-29 U/L Reference ID [id number] Footnote SEE NOTE The reliability of results is dependent on compliance with the preanalytical and analytical conditions recommended by [employer]. The tests have to be deferred for: [...] The performance characteristics have [facility] by [facility]. It has not been cleared or approved by the U.S. Food and Drug Administration. Performance characteristics refer to the analytical performance of the test. [employer], the associated logo, [employer] and all associated [employer] morales are the registered trademarks of [employer]. All third constitution party morales - (R) and (TM) - are the property of their respective owners. (C) 1608-1321 [employer]. All rights reserved. THIS TEST WAS PERFORMED AT: [facility] [facility] [address] [place] [address] ADELA BORJAS MD,PHD,PETER FOSTER Reflex Titer and Pattern Reviewed date:07/12/2025 11:56:27 PM Interpretation: Performing Lab:[facility], [address] [place] [phone] Notes/Report: Anti Nuclear Antibody Screen NEGATIVE NEGATIVE N FOSTER IFA is a first line screen [...] AC-0: Negative International Consensus on FOSTER Patterns (https://doi.org/10.1515 /bvro-2201-6811) For additional information, please refer to http://education.LikeBright/faq/LKX006 (This link is being provided for informational/ educational purposes only.) THIS TEST WAS PERFORMED AT: [facility] [address] [place] [phone] ALESSANDRO MALONE MD Anti Nuclear Antibody Titer TNP Anti Nuclear Antibody Pattern TNP FOSTER Titer 2 TNP FOSTER Pattern 2 TNP FOSTER Titer 3 TNP FOSTER Pattern 3 TNP Mitochondrial Antibody Reviewed date:07/12/2025 11:56:19 PM Interpretation: Performing Lab:[facility], [address] [place] [phone] Notes/Report: Mitochondrial Antibodies NEGATIVE NEGATIVE N THIS TEST WAS PERFORMED AT: [facility] [address] [place] [phone] ALESSANDRO MALONE MD Mitochondrial Ab Titer TNP Smooth Muscle Antibody Reviewed date:07/12/2025 11:56:09 PM Interpretation: Performing Lab:[address] [address] Notes/Report: Smooth Muscle Antibody <20 <20 U [...] type 1. THIS TEST WAS PERFORMED AT: [facility]/[address] NATHALIE HERR MD,PHD Hepatitis B,C Profile Reviewed date:07/05/2025 10:32:28 PM Interpretation: Performing Lab:[facility], [address] [place] [phone] Notes/Report: Hepatitis B Surface Antibody NONREACTIVE Nonreactive Nonreactive: < 8 .00 mIU/mL Hepatitis B Core Antibody Nonreactive Nonreactive Hepatitis C Antibody Nonreactive Nonreactive Antibodies to HCV not detected; does not exclude early acute HCV infection. Hepatitis B Surface Antigen Negative Negative Complete Blood Count Auto Cristy ff Reviewed date:07/13/2025 12:00:21 AM Interpretation: Performing Lab:[facility], [address] [place] [phone] Notes/Report: White Blood Count 5.5 4.8-10.8 X10*3/uL N Red Blood Count 4.75 4.20-5.50 X10*6/uL N Hemoglobin 13.5 12.0-16.0 g/dl N Hematocrit 39.9 37.0-47.0 % N Mean Corpuscular Volume 84.0 80.0-98.0 fL N Mean Corpuscular Hemoglobin 28.4 27.0-33.0 pg N Mean Corpuscular HGB Conc 33.8 31.0-35.0 g/dl N Red Cell Distribution Width 12.6 11.0-16.0 % N Platelet Count 260 160-400 X10*3/uL N Mean Platelet Volume 9.9 9.4-12.3 fL N Neutrophils Percent Auto 52.0 45-73 % N Imm Gran Pct Auto 0.4 0.0-0.4 % N Lymphocytes Percent Auto 34.1 20-40 % N Monocytes Percent Auto 8.4 2-11 % N Eosinophils Percent Auto 3.8 0-4 % N Basophils Percent Auto 1.3 0-2 % N NRBC Pct Auto 0.0 0.0-0.2 /100WBC N Neutrophils Absolute Auto 2.9 2.0-8.3 x10*3/uL N Imm Gran Abs Auto 0.02 0.00-0.03 X10*3/uL N Lymphocytes Absolute Auto 1.9 1.2-4.9 X10*3/uL N Monocytes Absolute Auto 0.5 0.1-1.2 X10*3/uL N Eosinophils Absolute Auto 0.2 0.0-0.4 X10*3/uL N Basophils Absolute Auto 0.1 0.0-0.2 X10*3/uL N NRBC Abs Auto 0.000 0.0-0.012 X10*3/uL N Liver Panel Reviewed date:07/05/2025 10:31:29 PM Interpretation: Performing Lab:[facility], [address] [place] [phone] Notes/Report: Bilirubin Total 0.4 0.0-1.0 mg/dL N Bilirubin Direct 0.2 0.0-0.5 mg/dL N Aspartate Amino Transferase 21 5-31 U/L N Alanine Aminotransferase 25 0-31 U/L N Total Protein 6.9 6.5-8.0 g/dL N Albumin Level 4.4 3.5-5.0 g/dL N Alkaline Phosphatase 71 39-117 U/L N IRON PROFILE Reviewed date:07/12/2025 11:58:07 PM Interpretation: Performing Lab:[facility], [address] [place] [phone] Notes/Report: Iron 78 30-160 mcg/dL N Total Iron Binding Capacity 275 228-428 mcg/dL N Percent Iron Saturation 28 15-50 % N Unsaturated Iron Binding 197 Hemoglobin A1c Reviewed date:07/05/2025 10:30:45 PM Interpretation: Performing Lab:[facility], [address] [place] [phone] Notes/Report: Hemoglobin A1c % 6.1 <6.0 % H Hemoglobin A1C Reference Range Adults: 4.8 - [...] average glucose, using the formula of the B2B-Ujvbtro Average Glucose study (ADAG), Diabetes Care, Vol.31,#8, Jun. 2007 Reason For Referral No Information Medications Medication SIG (Take, Route, Frequency, Duration) Notes Start Date End Date Status Omeprazole 20 MG Capsule Delayed Release 1 capsule 1/2 to 1 hour before morning meal Orally Once a day Active Vitamin D3 50 MCG (1999 [place]) Capsule 1 capsule Orally Once a day Active Losartan Potassium 50 MG Tablet 1 tablet Orally Once a day A ctive Aloe Vera Active Social History Tobacco Use: Social History Observation Description Date Details (start date - stop date) Never Smoker NA - NA Social History Drug/Alcohol: Social Info Question Answer Notes AUDIT-C (Standard) Did you have a drink containing alcohol in the past year? No Points 0 Interpretation Negative Tobacco Use: Social Info Question Answer Notes Tobacco Control (Standard) Tobacco use: Nonsmoker Additional Details Category Social Info Options Details Miscellaneous: Marital status: Occupation: Retired school t eacher Problems Problem Type SNOMED Code ICD Code Onset Dates Problem Status W/U Status Risk Notes Problem Colon cancer screening (851867642) Colon cancer screening (Z12.11) Active confirmed Problem Fatty liver (502459513) Fatty liver (K76.0) Active confirmed Problem History of adenomatous polyp of colon (624300329) History of adenomatous polyp of colon (Z86.0101) Active confirmed Vital Signs Blood pressure diastolic 77 mm Hg 07/02/2025 Height 63 in 07/02/2025 Blood pressure systolic 111 mm Hg 07/02/2025 Weight 163 lbs 07/02/2025 BMI 28.87 kg/m2 07/02/2025 Encounters Encounter Location Date Provider Diagnosis [facility] [address] [place] [phone] 07/02/2025 Alvarado Mccoy Fatty liver K76.0 ; History of adenomatous polyp of colon Z86.0101 and Colon cancer screening Z12.11 [facility] [address] [place] [phone] 07/02/2025 Alvarado Mccoy [facility] [address] [place] [address] 07/12/2025 Alvarado Mccoy Assessments Encounter Date Diagnosis [...] again for allow me to participate in Douglsa's care. I will continue to keep you [...] IBC (FE) 07/02/2025 CBC w DIFF 07/02/2025 Next Appt Details Provider Name:Alvarado Mccoy , 11/05/2025 10:20:00 AM, [address] [facility], [address], [place], [address], Insurance Providers Payer Name Payer Address Payer Phone Subscriber Number Group Number Insured Name Patient Relationship to Insured Coverage Start Date Coverage End Date [place] [address] [place] [address] [id number] DOUGLAS CARMEN Self - patient is the insured [address] [place] [address] [address] [place] [address] [id number] DOUGLAS CARMEN Self - patient is the insured Medical [...]
== END 2025-10-07 15:57 | disposition home or self-care (01) ==
PROVIDERS: PCP Physician Assistant; Visit Provider Physician Assistant
DX: I10 Essential (primary) hypertension (principal); E11.42 Type 2 diabetes mellitus with diabetic polyneuropathy; R16.0 Hepatomegaly, not elsewhere classified; R29.898 Other symptoms and signs involving the musculoskeletal system; G62.9 Polyneuropathy, unspecified

== ENCOUNTER → 2025-10-07 14:10 | Outpatient (BNVA) | payer MEDICARE, OTHER, SELFPAY | PROVIDERS: PCP Internal Medicine; Visit Provider Physician Assistant | DX: Z71.2 Person consulting for explanation of examination or test findings (principal); E11.9 Type 2 diabetes mellitus without complications; R10.11 Right upper quadrant pain; I10 Essential (primary) hypertension; K21.9 Gastro-esophageal reflux disease without esophagitis; R30.0 Dysuria; R16.0 Hepatomegaly, not elsewhere classified; R29.898 Other symptoms and signs involving the musculoskeletal system; G62.9 Polyneuropathy, unspecified | CPT/HCPCS: 99212 ==

== ENCOUNTER 2025-10-19 13:58 | Outpatient (REF) | payer MEDICARE, OTHER, SELFPAY ==
--- NOTE | ~2025-10-19 | XR_ITS ---
EXAMINATION: X-ray bilateral clavicles CLINICAL INFORMATION: Pain COMPARISON: None TECHNIQUE: Right clavicle 2 views. Left clavicle 2 views. FINDINGS: Right clavicle: Moderate acromioclavicular arthritis. No visible acute fracture, malalignment, or suspicious bony lesion. Sternoclavicular articulation is maintained. No abnormal soft tissue calcification. Left clavicle: Mild acromioclavicular arthritis. No visible acute fracture, malalignment or suspicious bony lesion. Sternoclavicular articulation is maintained. No abnormal soft tissue calcification. XR/XR clavicle BI IMPRESSION: Right clavicle: Moderate acromioclavicular arthritis Left clavicle: Mild acromioclavicular arthritis Electronically signed by: Alexander Whelan MD 10/20/2025 04:39 PM EST
--- NOTE | ~2025-10-19 | XR_ITS ---
EXAMINATION: XR SHOULDER, LEFT CLINICAL INFORMATION: Pain COMPARISON: None available. TECHNIQUE: AP external rotation, Grashey, scapular Y, and axillary views of the left shoulder. FINDINGS: Mild acromioclavicular arthritis. Glenohumeral joint space is maintained. No visible acute fracture, dislocation or suspicious bony process. No abnormal soft tissue calcification.. XR/XR shoulder LT min 2V IMPRESSION: Mild acromioclavicular arthritis. Electronically signed by: Alexander Whelan MD 10/21/2025 07:26 AM [facility]
--- OUTSIDE RECORDS SUMMARY | 2025-10-19 18:04 | XMS_ITS | Clinical Summary ---
Author Organization [facility] [address] [facility] Address [address] [place] [address] Phone Care Team Providers Care Group Home Manager Name Role Phone Best Suh MD Primary Care Provider [phone] Allergies Active Allergy Reactions Criticality Noted Date [...] Team Description 07/27/2025 Telephone Gastroenterology - [address] [place] [address] Forest Espinosa MD from Last 3 Months Social History Tobacco [...] Procedure Name Priority Date/Time Associated Diagnosis Comments COMPREHENSIVE METABOLIC PANEL Routine 06/24/2025 3:09 PM EDT Right upper quadrant abdominal pain Abnormal liver diagnostic imaging from Last 3 Months or Most Recently Relevant to Health Maintenance Results * Comprehensive metabolic panel (06/24/2025 3:09 PM EDT) Sodium 137 133 - 145 mmol/L LAB CHEMISTRY METHOD 06/24/2025 4:25 PM EDT [facility] Potassium 3.7 3.5 - 5.5 mmol/L LAB CHEMISTRY METHOD 06/24/2025 4:25 PM EDT [facility] Chloride 105 96 - 110 mmol/L LAB CHEMISTRY METHOD 06/24/2025 4:25 PM EDT [facility] CO2 29 21 - 32 mmol/L LAB CHEMISTRY METHOD 06/24/2025 4:25 PM [facility] Anion Gap 3 3 - 11 LAB CHEMISTRY METHOD 06/24/2025 4:25 PM [facility] Glucose 79 70 - 100 mg/dL LAB CHEMISTRY METHOD 06/24/2025 4:25 PM [facility] BUN 21 5 - 25 mg/dL LAB CHEMISTRY METHOD 06/24/2025 4:25 PM [facility] Creatinine 0.92 0.50 - 1.10 mg/dL LAB CHEMISTRY METHOD 06/24/2025 4:25 PM [facility] eGFR 67 >=60 mL/min/1. 73m2 LAB CHEMISTRY METHOD 06/24/2025 4:25 PM [facility] Comment:Calculation based on the Chronic Kidney Disease Epidemiology Collaboration (CKD-EPI) equation refit without adjustment for race. BUN/Creatinine Ratio 22.8 LAB CHEMISTRY METHOD 06/24/2025 4:25 PM [facility] Calcium 9.7 8.5 - 10.5 mg/dL LAB CHEMISTRY METHOD 06/24/2025 4:25 PM [facility] AST (SGOT) 21 10 - 42 unit/L LAB CHEMISTRY METHOD 06/24/2025 4:25 PM [facility] ALT (SGPT) 25 10 - 60 unit/L LAB CHEMISTRY METHOD 06/24/2025 4:25 PM [facility] Alkaline Phosphatase 79 42 - 121 unit/L LAB CHEMISTRY METHOD 06/24/2025 4:25 PM [facility] Total Protein 7.2 6.0 - 8.0 g/dL LAB CHEMISTRY METHOD 06/24/2025 4:25 PM [facility] Albumin 4.2 3.2 - 5.0 g/dL LAB CHEMISTRY METHOD 06/24/2025 4:25 PM [facility] Total Bilirubin 0.6 0.0 - 1.4 mg/dL LAB CHEMISTRY METHOD 06/24/2025 4:25 PM EDT [facility] Blood Venous blood specimen / Unknown Venipuncture / Unknown 06/24/2025 3:09 PM EDT 06/24/2025 3:21 PM EDT us Forest Espinosa MD LAB BLOOD ORDERABLES Final Result [facility] [address] [place] [address], from Last 3 Months or Most Recently Relevant to Health Maintenance Insurance MEDICARE [facility] Care Teams Group Home Manager Relationship Specialty Start Date End Date Best Suh MD [address] [place] [address] Dr [address]oso [address] SHARATH Posada PCP - General 10/31/12
--- OUTSIDE RECORDS SUMMARY | 2025-10-19 18:04 | XMS_ITS | Encounter Summary ---
Author Organization [facility] Address [address] [place] [address] Care Team Providers Care Motor Coach Bus Driver Name Role Phone Best Suh MD Primary Care Provider [phone] Encounter Details Date Type Department Care Team (Late st Contact Info) Description 02/13/2025 Lab Requisition [facility] - Main Lab [address] [place] [id number] Isidro Rios MD [address] [address] Dysuria Social History Tobacco Use Types Packs/Day [...] 02/14/2025 10:36 AM EDT [facility] Other Urine specimen from urethra / Unknown 02/12/2025 02/13/2025 10:36 AM EDT us Isidro Rios MD LAB MICROBIOLOGY - G ENERAL ORDERABLES Final Result [facility] ([facility]) [facility] [address] [place] [address], documented in this encounter Visit Diagnoses Diagnosis Dysuria documented in this encounter Care Teams Motor Coach Bus Driver Relationship Specialty Start Date End Date Best Suh MD [address] [place] [address] Dr Ismael [place] PCP - General 10/31/12 documented as of this encounter
--- OUTSIDE RECORDS SUMMARY | 2025-10-19 18:04 | XMS_ITS | Encounter Summary ---
Author Organization [facility] Address [address] [place] [address] Care Team Providers Care Feed Mixer Helper Name Role Phone Best Suh MD Primary Care Provider [phone] Encounter Details Date Type Department Care Team (Late st Contact Info) Description 01/15/2025 Lab Requisition [facility] - Main Lab [address] [place] [address] [facility] Fine & Sukumar Ob-General Doc Acute vaginitis Social History Tobacco Use Types [...] vaginalis Negative Negative 2025 12:[address] [facility] Gardnerella vaginalis Negative Negative 2025 12:[address] [facility] Angela Species Negative Negative 12:12 PM [facility] Swab Vaginal structure / Unknown 01/15/2025 01/15/2025 7:31 PM EST us [facility] Sukumar O b-General Doc [facility] Fine LAB MICROBIOLOGY - GENERAL ORDERABLES Final Result [facility] ([facility]) [facility] [address] [place] [address], documented in this encounter Visit Diagnoses Diagnosis Acute vaginitis Unspecified vaginitis and vulvovaginitis documented in this encounter Care Teams Feed Mixer Helper Relationship Specialty Start Date End Date Best Suh MD [address] [place] [address] Dr Ismael [place] PCP - General 10/31/12 documented as of this encounter
--- OUTSIDE RECORDS SUMMARY | 2025-10-19 18:04 | XMS_ITS | Encounter Summary ---
Author Organization [facility] Address [address] [place] [address] Care Team Providers Care Eyeglass Maker Name Role Phone Best Suh MD Primary Care Provider [phone] Encounter Details Date Type Department Care Team (Late st Contact Info) Description 03/18/2025 Lab Requisition [facility] - Main Lab [address] [facility] [place] [address] Jodi Santillan NP [address] [facility] [address] [place] [address] Dysuria Social History Tobacco Use Types Packs/Day [...] Urogenital julien. 03/18/2025 11:49 AM EDT [facility] ([facility]) [facility] Other Urine specimen from urethra / Unknown 03/17/2025 03/18/2025 10:43 AM EDT us Jodi Santillan DIGITAL ASSET MANAGER LAB MICROBIOLOGY - GENERA L ORDERABLES Final Result [facility] ([facility]) [facility] [address] [place] [address], [place] [phone] documented in this encounter Visit Diagnoses Diagnosis Dysuria documented in this encounter Care Teams Eyeglass Maker Relationship Specialty Start Date End Date Best Suh MD [address] [place] [address] Dr Simpson [place] PCP - General 10/31/12 documented as of this encounter
== END 2025-10-19 13:59 | disposition home or self-care (01) ==
LOC: HO.XRAY 13:58
PROVIDERS: PCP Student in an Organized Health Care Education/Training Program; Visit Provider Student in an Organized Health Care Education/Training Program
DX: M25.512 Pain in left shoulder (principal); E11.9 Type 2 diabetes mellitus without complications; G62.9 Polyneuropathy, unspecified; G89.29 Other chronic pain; K76.0 Fatty (change of) liver, not elsewhere classified; K59.09 Other constipation; R45.89 Other symptoms and signs involving emotional state
CPT/HCPCS: 73000; 73030; 99212

== ENCOUNTER 2025-10-19 13:58 | Outpatient (AMB) | payer MEDICARE, OTHER, SELFPAY ==
--- NOTE | 2025-10-19 14:01 | A.OFFPC_ITS ---
Vital Signs 10/19/25 14:02 Height 5 ft 3 in Weight 160 lb BMI 28.3 BP 124/68 Blood Pressure Location Lt brachial Position Sitting Respiration 18 Pulse 78 Pulse Source Pulse Oximeter Temp 97.7 F Temp Source Temporal Artery Scan Pulse Oximetry (%) 97 Oxygen Delivery Method Room Air Intake Visit Reasons: pt request trf to MD - see comments Raw Mill Operator Required: No Accompanied by: Self / Same As Patient Allergies ciprofloxacin (CIPROFLOXACIN) Allergy (Intermediate, Verified 10/19/25 14:01) RASH Medication List - Last Reconciled 10/19/25 by Gilmer Yancey MD aloe vera mg PO blood sugar diagnostic (FreeStyle Lite Strips) use to check blood sugars once daily blood-glucose meter (FreeStyle Lite Meter kit) Use to check fasting blood sugar every morning. Goal is less than 130 cholecalciferol (vitamin D3) 50 mcg PO DAILY ciclopirox 8% 1 appl topical BEDTIME 12 weeks estradiol 0.01%(0.1mg/gram) vaginal fexofenadine (Rachelle Allergy) 60 mg PO BID PRN hydrocortisone 2.5% topical PRN lancets (FreeStyle Lancets) use to check fasting blood sugar every morning. Goal is less than 130 losartan 50 mg PO BID 90 days omeprazole 20 mg PO DAILY Tobacco use date assessed: 03/18/25 Dental Screening Dental Screen Date: 03/18/25 HPI HPI Comments History of Present Illness Details History of Present Illness The patient is a 70 year old individual presenting for management of type 2 diabetes mellitus. The patient was diagnosed with diabetes about 5-6 months ago and is now considered to have diet-controlled diabetes, with a recent HgbA1c of 6.2, down from a high of 6.6 in January 2025. The patient has lost approximately 15 pounds by watching carbohydrate intake. The patient also has a history of high blood pressure, treated with losartan 50 mg twice daily, and reports excellent blood pressure readings. For acid reflux, the patient takes omeprazole 20 mg once daily, one hour before the morning meal. The patient reports burning and shooting pain in both feet, which is worse at night and can be awakening. The patient has a history of degenerative disc disease, for which the patient has received injections in the past and has ga bapentin at home. A leg ultrasound on September 17 for left leg discomfort revealed atherosclerotic disease and varicosities, and a referral to a vascular surgeon was recommended. The patient has a known history of non-alcoholic fatty liver disease and reports right upper quadrant discomfort for the past six months, though a April ultrasound only noted fatty liver with normal enzymes. Past surgical history includes a cholecystectomy. The patient has a history of hemorrhoids with occasional bleeding, as well as alternating constipation and diarrhea. The patient reports a history of diverticulosis and precancerous polyps found on numerous colonoscopies. Additionally, the patient reports chronic left clavicle pain with a clicking sensation that began in late spring after cutting bushes and is exacerbated by physical activity, particularly raising the arm. 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 Medical History: - Type 2 Diabetes Mellitus, diet-control led - Hypertension - Gastroesophageal Reflux Disease - Allergies - Degenerative disc disease - Atherosclerosis - Varicose veins - Non-alcoholic fatty liver disease - Hemorrhoids - Constipation - Diverticulosis - History of precancerous colon polyps Surgical History: - Cholecystectomy - History of injections for disc disease - History of multiple colonoscopies with polypectomy Medications: - Losartan 50 mg twice a day for high bl ood pressure. - Omeprazole 20 mg once a day for acid r eflux. - Fexofenadine (Rachelle) as needed for a llergies. Diagnostic Results: - Labs: HgbA1c was 6.6% in January 2025 an d is now 6.2% - Labs: Liver enzymes are completely nor mal. - Home Glucose Monitoring: Fasting blood sugar was 108 mg/dL this morning. - Imaging: Leg ultrasound showed atheros clerotic disease and varicosities in both legs. - Imaging: Abdominal ultrasound from Apr showed fatty liver. - Imaging: CT scan from November of this year was normal aside from a large amount of stool. Social History - Substance Use: The patient denies smok ing and alcohol use. - Functional Status: The patient is a ca regiver for the patient's 91-year-old mother. - Diet: The patient has been watching ca rbohydrate intake, leading to a 15-pound weight loss. - Health Literacy: The patient frequentl y researches health conditions on the internet, which causes anxiety. [facility] Medical History (Updated 10/19/25 @ 14:52 by Gilmer Yancey MD) Anxiety about health Chronic constipation NAFLD (nonalcoholic fatty liver disease) Left shoulder pain Hepatomegaly Lumbar degenerative disc disease Type 2 diabetes mellitus Neuropathy Surgical History History of colonoscopy (~01/21/24) Family History Mother Dementia Afib Arthritis Mental health disorder Father Gastric cancer Social History Housing: House Alcohol intake: current Alcohol intake frequency: does not drink Patient Tobacco Use Status: Never used Tobacco e-Cigarette/Vaping Use: Never Used service: No Current occupational status: retired Cognitive needs: No Hearing needs: No Vision needs: Yes (rx glasses) Questionnaire Thrive Questionnaire Date Thrive assessed: 03/18/25 JEFFERY-7 AMB Questionnaire JEFFERY-7 Date JEFFERY - 7 assessed: 03/18/25 Source: Developed by Drs. Alvarado Pratt, Maria Esther Saucedo, Patricio Cherry and colleagues, with an educational silvia from [facility]. Review of Systems Narrative Review of Systems - General: Reports a 15-pound weight loss over the past few months. - Neurological: Reports burning and shooting pain in both feet, predominantly at night. - Cardiovascular: Reports occasional discomfort in the back of the left leg. - Gastrointestinal: Reports discomfort in the right upper quadrant for the past six months, especially after eating. - Gastrointestinal: Reports a history of bleeding hemorrhoids and alternating constipation with diarrhea. - Musculoskeletal: Reports chronic left clavicle pain with a clicking sensation, which is worse with physical activity. All systems reviewed & are unremarkable except as reviewed in HPI and above Physical exam (Primary Care) Vital Signs: Last Vital Signs Temp 97.7 F 10/19/25 14:02 Pulse 78 10/19/25 14:02 Resp 18 10/19/25 14:02 BP 124/68 10/19/25 14:02 Pulse Ox 97 10/19/25 14:02 Oxygen Delivery Method Room Air 10/19/25 14:02 BMI result Body Mass Index 28.3 Tobacco/Smoking Status: Tobacco use Status Tobacco use date assessed 03/18/25 10/19/25 14:07 Patient Tobacco Use Status Never used Tobacco 10/19/25 14:07 e-Cigarette/Vaping Use Never Used 10/19/25 14:07 Thrive Assessment: Date of Thrive Assessment Date Thrive assessed 03/18/25 10/19/25 14:07 Narrative Physical Exam General: +Alert and oriented, Well nourished, No acute distress. Eye: Pupils are equal, round and reactive to light, Intact accommodation, Extraocular movements are intact, Normal conjunctiva, Vision unchanged. HENT: Normocephalic, Atraumatic, Tympanic membranes are clear, Normal hearing, Oral mucosa is moist, No pharyngeal erythema, Ear canals patent. Respiratory: Lungs CTA bilaterally, No wheeze, Respirations are non-labored. Cardiovascular: Regular rate, Regular rhythm, S1 auscultated, S2 auscultated, No murmur, Good pulses equal in all extremities, Normal peripheral perfusion, No edema. Gastrointestinal: Soft, Non-tender, Non-distended, Normal bowel sounds, No organomegaly. Musculoskeletal: Normal range of motion, Normal strength, No tenderness, No swelling, No deformity, Normal gait. Integumentary: Warm, Dry, [place], Intact. Neurologic: Alert, Oriented, Normal sensory, Normal motor function, No focal defects, Cranial Nerves II-XII are grossly intact, Normal deep tendon reflexes. Psychiatric: Cooperative, Appropriate mood & affect, Normal judgment. This visit qualifies as a Level 5 encounter due to both time and medical decision-making complexity. A total of 50 minutes were spent today (30 minutes in direct patient care and counseling, and at least 20 minutes reviewing extensive outside records, imaging, laboratories, and prior consultations before the visit). The patient presents with multiple chronic conditions with progression and new symptoms requiring evaluation, including worsening neuropathic foot pain, chronic right upper quadrant abdominal pain, longstanding degenerative disc disease with possible nerve involvement, chronic constipation with hemorrhoids, non-alcoholic fatty liver disease, atherosclerotic disease on recent ultrasound, and chronic clavicular/shoulder pain with mechanical symptoms. The visit involved ordering multiple diagnostic studies (lumbar spine X-ray, left shoulder/clavicle X-ray), starting and titrating a new neuropathic pain medication (gabapentin) with detailed risk/benefit discussion, reviewing and counseling on recent vascular ultrasound findings requiring specialist follow-up, addressing GI concerns requiring discussion with gastroenterology, and providing extensive lifestyle and diet counseling for diabetes, fatty liver, and bowel health. A substantial portion of the visit was dedicated to addressing the patient's significant health-related anxiety and providing reassurance to avoid harmful internet-based self-diagnosis. Given the extensive data review, complexity of conditions, diagnostic evaluation, medication management, and prolonged counseling and coordination of care, this encounter meets criteria for 905[address]. Coding Level of Care Code Est Pt Level 5 (72103) Complex visit Add On G2211 Diagnoses Type 2 diabetes mellitus without complication, without long-term current use of insulin E11.9 Diabetes mellitus fci insulin use: without long term acute care registered nurse use Diabetes mellitus complication status: without complication Neuropathy G62.9 Degeneration of intervertebral disc of lumbar region, unspecified whether pain present M51.369 Disc-related pain type: unspecified whether pain present Chronic left shoulder pain M25.512; G89.29 Chronicity: chronic NAFLD (nonalcoholic fatty liver disease) K76.0 Chronic constipation K59.09 Varicose veins of lower extremity, unspecified laterality, unspecified whether complicated I83.90 Varicose vein complication: unspecified Laterality: unspecified laterality Anxiety about health R45.89 Time Spent (min) 50 Assessment & Plan Assessment & Plan (1) Type 2 diabetes mellitus: Comment: The patient's condition is considered diet-controlled diabetes, given a prior HgbA1c of 6.6%, despite the recent value being 6.2%. The pathophysiology of age- related insulin resistance was explained. The plan includes resending a prescription for lancets, encouraging continued diet management, and follow-up in 3-4 months for a repeat HgbA1c. Code(s): E11.9 - Type 2 diabetes mellitus without complications Category: Medical Qualifiers: Diabetes mellitus long term acute care registered nurse insulin use: without fci use Diabetes mellitus complication status: without complication Qualified Code(s): E11.9 - Type 2 diabetes mellitus without complications Plan: - Resent prescription for lancets. - The patient was educated that given well-controlled sugars, routine finger sticking is not necessary. - Follow up for HgbA1c check in 3-4 months. - Advised to follow a Mediterranean diet. (2) Neuropathy: Comment: The patient reports burning, shooting pain in the feet, suggestive of neuropathy, which could be related to prior high blood sugars or nerve compression from degenerative disc disease. The plan is to initiate gabapentin 100 mg at night, with instructions to titrate for symptom control. Physical therapy is also recommended. Code(s): G62.9 - Polyneuropathy, unspecified Category: Medical Plan: - Prescribed gabapentin 100 mg to be taken once daily at night for neuropathic pain in feet. - Instructed to titrate the dose up to three times a day if needed, with a maximum of 1800 mg daily. - Advised physical therapy and increased activity. (3) Lumbar degenerative disc disease: Comment: This is a known condition possibly contributing to the patient's foot neuropathy. An X-ray of the back was going to bee ordered to evaluate for nerve compression however patient declined. The patient is advised to follow up with their specialist who has previously administered injections as she requested Code(s): M51.369 - Other intervertebral disc degeneration, lumbar region without mention of lumbar back pain or lower extremity pain Category: Medical Qualifiers: Disc-related pain type: unspecified whether pain present Qualified Code(s): M51.369 - Other intervertebral disc degeneration, lumbar region without mention of lumbar back pain or lower extremity pain Plan: - The patient may follow up with the specialist who manages this condition with injections. (4) Left shoulder pain: Comment: The patient reports chronic clicking and pain with certain movements, possibly related to a muscle sprain or rotator cuff injury. An X-ray of the left shoulder and clavicle has been ordered. Code(s): M25.512 - Pain in left shoulder Category: Medical Qualifiers: Chronicity: chronic Qualified Code(s): M25.512 - Pain in left shoulder; G89.29 - Other chronic pain Plan: - Ordered an X-ray of the left shoulder and clavicle to evaluate for a possible rotator cuff injury. (5) NAFLD (nonalcoholic fatty liver disease): Comment: The patient was reassured that the fatty liver is a common and not immediately concerning finding, given normal liver enzymes. It was recommended that the pa tient discuss the chronic RUQ pain with the whitewater rafting guide, Dr. Mccoy, considering post-cholecystectomy syndrome as a possible etiology. A Mediterranean diet was also advised. Code(s): K76.0 - Fatty (change of) liver, not elsewhere classified Category: Medical Plan: - Reassured the patient that this finding is not immediately concerning given normal liver enzymes. - Recommended the patient follow up with the GI specialist, Dr. Mccoy, to discuss persistent right upper quadrant pain, potentially related to a post- cholecystectomy state. - Advised following a a diet for fatty liver. (6) Chronic constipation: Comment: A recent CT scan showed a large stool burden. The patient was advised to start MiraLax one scoop twice daily and adjust the dose to achieve regular bowel movements. The patient should also discuss hemorrhoid management with the GI specialist. Code(s): K59.09 - Other constipation Category: Medical Plan: - Recommended taking MiraLax, one scoopful in the morning and one in the evening, and titrating the dose until regular bowel movements are achieved. - Advised the patient to discuss management of hemorrhoids with the GI specialist. (7) Varicose vein of leg: Comment: The patient was advised to contact central scheduling to follow up on the pending vascular surgery consultation with Dr. Rayray Cardona regarding findings on a recent leg ultrasound. Code(s): I83.90 - Asymptomatic varicose veins of unspecified lower extremity Category: Medical Qualifiers: Varicose vein complication: unspecified Laterality: unspecified laterality Qualified Code(s): I83.90 - Asymptomatic varicose veins of unspecified lower extremity (8) Anxiety about health: Comment: Significant time was spent providing reassurance and counseling the patient to avoid researching medical information on the internet, as this is causing significant stress. The patient was [facility]. Code(s): R45.89 - Other symptoms and signs involving emotional state Category: Medical Plan: - Provided reassurance and strongly counseled the patient to stop researching medical topics on the internet. - Scheduled a follow-up appointment in 4 months. Health Maintenance: - Diet and Nutrition: A Mediterranean diet was recommended to address diabetes, fatty liver, and diverticulosis. - Physical Activity: Advised to be active to help with neuropathy. - Substance Use: The patient denies any alcohol or tobacco use. - Cancer Screening: The patient has a history of precancerous polyps and has undergone multiple colonoscopies. - Diabetes Monitoring: Advised to check HgbA1c every 3-4 months. Patient was informed and verbally consented to the use of an ambient scribe for clinic note documentation during this visit. Plan I addressed the patient's concern about being prediabetic by clarifying that based on a prior HgbA1c of 6.6%, the correct diagnosis is diet-controlled type 2 diabetes mellitus, and explained the pathophysiology of insulin resistance. For the neuropathic pain in the feet, I prescribed gabapentin 100 mg at night with instructions on titration and recommended physical therapy. To investigate underlying causes, I ordered X-rays of the back and the left shoulder/clavicle for the patient's respective pain complaints. We discussed the patient's GI symptoms, and I recommended MiraLax for constipation and advised discussion with the GI specialist, Dr. Mccoy, regarding right upper quadrant pain and hemorrhoids. I reassured the patient that the diagnosis of fatty liver is not alarming given the normal liver enzymes. A significant portion of the visit was dedicated to counseling the patient to stop researching medical conditions on the internet, as it is a source of significant anxiety. I recommended the patient direct all questions to the medical team and scheduled a follow-up in four months to ensure continuity and address ongoing concerns. Orders: Orders XR clavicle BI Today M25.512 - Pain in left shoulder Hemoglobin A1c 4 Months E11.9 - Type 2 diabetes mellitus without complications XR shoulder LT min 2V Today M25.512 - Pain in left shoulder Medications: New polyethylene glycol 3350 (Miralax) 17 grams PO BID 510 grams 0RF gabapentin 100 mg PO BEDTIME 30 caps 0RF Refilled lancets (FreeStyle Lancets) use to check fasting blood sugar every morning. Goal is less than 130 100 ea 1RF E11.9 - Type 2 diabetes mellitus without complications Patient Instructions: - Take Gabapentin 100 mg by mouth once a day at night for the burning and shooting pain in your feet. - You can increase the gabapentin dose if your symptoms do not improve, up to a maximum of 1800 mg per day as we discussed. - To help with constipation, take one scoop of MiraLax mixed with liquid in the morning and one in the evening. - You can change the dose of MiraLax if you have diarrhea or are still not having regular bowel movements. - Follow a Mediterranean diet, which is good for your diabetes, fatty liver, and colon health. - Please go for the X-rays of your back and left shoulder/collarbone that have been ordered. - Call the central scheduling office to follow up on your appointment with the blood vessel surgeon, Dr. Rayray Cardona. - Discuss your right-sided belly pain and hemorrhoids with your whitewater rafting guide, Dr. Mccoy, at your next appointment. - Please avoid looking up your health concerns on the internet, as this can cause unnecessary stress. If you have questions, contact our office. - We will see you back in the office in 4 months for a follow-up visit and to c heck your A1c.
[2025-10-19 14:02] VITALS: BP 124/68; PULSE 78; RESP 18; TEMP 36.5; O2SAT 97; BMI 28.3
== END 2025-10-19 14:42 | disposition home or self-care (01) ==
PROVIDERS: PCP Student in an Organized Health Care Education/Training Program; Visit Provider Student in an Organized Health Care Education/Training Program
DX: E11.42 Type 2 diabetes mellitus with diabetic polyneuropathy (principal); G62.9 Polyneuropathy, unspecified; M51.369 Other intervertebral disc degeneration, lumbar region without mention of lumbar back pain or lower extremity pain; M25.512 Pain in left shoulder; G89.29 Other chronic pain; K76.0 Fatty (change of) liver, not elsewhere classified; K59.09 Other constipation; I83.90 Asymptomatic varicose veins of unspecified lower extremity; R45.89 Other symptoms and signs involving emotional state

== ENCOUNTER → 2025-10-19 14:51 | Outpatient (BNV) | payer MEDICARE, OTHER, SELFPAY | PROVIDERS: PCP Student in an Organized Health Care Education/Training Program; Visit Provider Radiology Diagnostic Ultrasound | DX: M19.012 Primary osteoarthritis, left shoulder (principal) | CPT/HCPCS: 73000; 73030 ==